=== PATIENT | female | born 1970 | race Caucasian/White ===

== ENCOUNTER 2020-02-23 13:50 | Outpatient (REF) | payer OTHER, SELFPAY ==
--- NOTE | 2020-02-23 | MM_ITS ---
EXAMINATION: MM SCREENING DIGITAL BREAST TOMOSYNTHESIS, BILATERAL CLINICAL INFORMATION: Screening. Asymptomatic. The lifetime risk of breast cancer based on the Tyrer-Cuzick Model is 8.5%. COMPARISON: Mammography: February 01, 2019 and studies dating back to July 31, 2013 TECHNIQUE: Digital breast tomosynthesis is performed in both the craniocaudal and mediolateral oblique views along with computer-aided detection (CAD). Synthesized 2D images are generated from the tomosynthesis. FINDINGS: There are scattered areas of fibroglandular density (ACR BI-RADS breast composition Category b). There are no significant masses, abnormal calcifications, or other abnormalities. MM/MM tomosynthesis screening BI IMPRESSION: There are no significant changes from prior study. ASSESSMENT: BI-RADS 1: Negative RECOMMENDATION: Routine annual mammography screening. This patient's information was entered into a reminder system with a target due date for their next mammogram.
== END 2020-02-23 13:51 | disposition home or self-care (01) ==
LOC: HO.MAMMO 13:50
PROVIDERS: PCP Physician Assistant; Visit Provider Physician Assistant
DX: Z12.31 Encounter for screening mammogram for malignant neoplasm of breast (principal)
CPT/HCPCS: 77063; 77067

== ENCOUNTER → 2020-03-06 15:48 | Outpatient (BNVA) | payer OTHER, SELFPAY | PROVIDERS: PCP Physician Assistant; Referring Provider Physician Assistant; Visit Provider Nurse Practitioner Family | DX: Z76.89 Persons encountering health services in other specified circumstances (principal) ==

== ENCOUNTER 2020-03-27 12:26 | Outpatient (REF) | payer OTHER, SELFPAY ==
[2020-03-27 13:31] LABS: MANUAL DIFF FLAG NO
[2020-03-27 13:35] LABS: Basophils Absolute Auto 0.1 X10*3/uL (0.0-0.2); Basophils Percent Auto 1.1 % (0-2); Eosinophils Absolute Auto 0.7 X10*3/uL (0.0-0.4); Eosinophils Percent Auto 9.9 % (0-4); Hematocrit 42.6 % (37-47); Hemoglobin 13.8 g/dl (12.0-16.0); Imm Gran Abs Auto 0.01 X10*3/uL (0.00-0.03); Imm Gran Pct Auto 0.1 % (0.0-0.4); Lymphocytes Absolute Auto 3.3 X10*3/uL (1.2-4.9); Lymphocytes Percent Auto 43.3 % (20-40); Mean Corpuscular HGB Conc 32.4 g/dl (31.0-35.0); Mean Corpuscular Hemoglobin 27.5 pg (27.0-33.0); Mean Corpuscular Volume 84.9 fL (80-98); Mean Platelet Volume 10.9 fL (9.4-12.3); Monocytes Absolute Auto 0.7 X10*3/uL (0.1-1.2); Monocytes Percent Auto 9.2 % (2-11); Neutrophils Absolute Auto 2.7 X10*3/uL (2.0-8.3); Neutrophils Percent Auto 36.4 % (45-73); Platelet Count 256 X10*3/uL (160-400); Red Blood Count 5.02 X10*6/uL (4.20-5.50); Red Cell Distribution Width 13.8 % (11.0-16.0); White Blood Count 7.5 X10*3/uL (4.8-10.8)
[2020-03-27 14:00] LABS: Alanine Aminotransferase 14 U/L (0-31); Albumin Level 4.2 g/dL (3.5-5.0); Alkaline Phosphatase 58 U/L (39-117); Anion Gap 14 (12-20); Aspartate Amino Transferase 17 U/L (5-31); Bilirubin Total 0.7 mg/dL (0.0-1.0); Blood Urea Nitrogen 11 mg/dL (9-16); Calcium 9.1 mg/dL (8.4-10.2); Carbon Dioxide 24 mmol/L (22-29); Chloride 106 mmol/L (96-108); Cholesterol 186 mg/dL; Estimated Glomerular Filt Rate > 60; Glucose Fasting 103 mg/dL (60-99); HDL Cholesterol 52 mg/dL; LDL Cholesterol Calculated 117 mg/dl; Sodium 139 mmol/L (135-145); Triglycerides 86 mg/dL
[2020-03-27 14:24] LABS: TSH reflex Free T4 1.24 mIU/mL (0.32-4.0)
== END 2020-03-27 12:27 | disposition home or self-care (01) ==
LOC: HO.LAB 12:26
PROVIDERS: Nurse Practitioner Family; Visit Provider Physician Assistant
DX: I10 Essential (primary) hypertension (principal); K21.9 Gastro-esophageal reflux disease without esophagitis
CPT/HCPCS: 36415; 80053; 80061; 84443; 85025; 87338

== ENCOUNTER → 2020-04-04 14:54 | Outpatient (BNVA) | payer OTHER, SELFPAY | PROVIDERS: PCP Physician Assistant; Visit Provider Internal Medicine Cardiovascular Disease | DX: Z01.818 Encounter for other preprocedural examination (principal); R07.9 Chest pain, unspecified; Z91.018 Allergy to other foods; Z91.010 Allergy to peanuts; Z91.013 Allergy to seafood; Z80.0 Family history of malignant neoplasm of digestive organs; Z79.899 Other long term (current) drug therapy | CPT/HCPCS: 93005; 99202 ==

== ENCOUNTER → 2020-05-10 08:16 | Outpatient (REF) | payer OTHER, SELFPAY ==
--- NOTE | ~2020-05-10 | NM_ITS ---
EXERCISE MYOCARDIAL PERFUSION STUDY INDICATION: Preoperative cardiac evaluation, abnormal EKG TECHNIQUE: The patient was brought in for an exercise perfusion study on 05/10/2020. Patient performed exercise as per Azael protocol and was injected 30 mCi of sestamibi once target heart rate was achieved. Images were obtained using the SPECT gamma camera interlaced with the gating device. Images were obtained in supine position. Resting perfusion study was performed on 05/13/2020. Patient was administered 30 mCi of sestamibi intravenously at rest. Images were then obtained in supine position. Total DLP 69mGy-cm. Images were processed with the software and compared side to side in short axis, horizontal long axis and vertical long axis views. FINDINGS: Raw images were reviewed. The stress perfusion study showed no significant perfusion abnormality. Both uncorrected as well as CT attenuation corrected images were reviewed. The gated study shows normal LV systolic function with calculated LVEF of > 75%. LV cavity is normal in size. The gated study shows normal wall thickening and contraction of segments. Resting study shows no significant perfusion abnormality. Gating at rest reveals normal wall motion with ejection fraction at 73%. The findings are consistent with no reversible or fixed perfusion abnormality. NM/NM cardiolite stress test IMPRESSION: 1. Myocardial perfusion imaging study shows normal myocardial perfusion. No evidence of any ischemia or infarction. 2. Gated LVEF is normal and > 70%. 3. Transient ischemic dilatation not present. EKG component of the test reported separately.
--- NOTE | 2020-05-10 08:20 | CA_ITS ---
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 - There is mildly increased left ventricular wall thickness. - Normal right ventricular cavity size and systolic function. - There is no evidence of pericardial effusion. Findings Left Ventricle Normal left ventricular size and systolic function. There is mildly increased left ventricular wall thickness. The visually estimated ejection fraction is between 55-60%. There is no evidence of regional wall motion abnormalities. Diastolic function is normal for age. Right Ventricle Normal right ventricular cavity size and systolic function. Atria Both atria are normal in size. There is no evidence of interatrial shunt by color Doppler. Aortic Valve Normal aortic valve structure and function. There is no aortic valve stenosis. There is no aortic valve regurgitation. Mitral Valve Normal mitral valve structure and function. There is no mitral valve regurgitation. There is no mitral valve stenosis. Pulmonic Valve Normal pulmonic valve structure and function. There is trace pulmonic valve regurgitation. Tricuspid Valve Normal tricuspid valve structure and function. There is trace tricuspid valve regurgitation. Normal right atrial pressure. There is no evidence of pulmonary hypertension. Great Vessels All visible segments of the aorta are normal in size. The visualized portions of the pulmonary artery and branches are normal. Venous The inferior vena cava is normal in size and collapses greater than 50% with inspiration. Pericardium/Pleural There is no evidence of pericardial effusion. Prior Study Comparison No prior study available for comparison. Measurements M-Mode Liner Measurements Normals - Women/Men AOV Cusps: 2.20 1.5-2.6 cm/m2 2D Linear Measurements IVSd: 1.03 0.6-0.9/0.6-1.0 cm LVIDd: 3.54 3.9-5.3/4.2-5.9 cm LVIDd Index: 2.05 2.4-3.2/2.2-3.1 cm/m2 LVIDs: 2.01 2.0-3.6 cm LVPWd: 1.62 0.7-1.1 cm Ao Root: 2.70 2.1-3.5 cm LA Diam: 3.20 2.7-3.8/3.0-4.0 cm LAIDs Index: 1.85 1.5-2.3 cm/m2 LV Mass: 200.53 67-162/88-224 g LV Mass Index: 115.91 43-95/49-115 g/m2 LVOT Diam: 2.10 3.0+(-)1.3 cm 2D Systolic Function EF 4C: 61.20 >55% EF 2C: 63.50 >55% EF BiP: 62.50 >55% Mitral Valve MV Pk E: 0.84 MV PK A: 0.65 MV Decel Time: 173.00 E/A: 1.30 E'Lateral: 11.70 E'Medial: 6.96 E/E' Med: 12.10 E/E' Lat: 7.20 PHT: 51.00 MVA PHT: 4.31 Decel Payette: 4.86 Aortic Valve AoV Pk Edison: 1.19 AoV Pk Grad: 6.00 LVOT LVOT Pk Edison: 0.73 LVOT Mn Edison: 0.53 LVOT VTI: 0.18 LVOT Pk Grad: 2.00 LVOT Mn Grad: 1.00 LVOT Diam: 2.10 LVOT Area: 3.46 Diastolic Function MV Pk E: 0.84 MV Pk A: 0.65 E/A: 1.30 E'Medial: 6.96 E/E' Med: 12.10 E' Laterial: 11.70 E/E' Lat: 7.20 Tricuspid Valve TR Pk Edison: 1.86 TR Pk Grad: 14.00 RA Press: 3.00 RVSP: 17.00 Great Vessels Aorta Ao Root-2D: 2.70 2.0-3.7 cm Ao Asc: 2.50 2.1-3.4 cm Pulmonary Valve PV Pk Edison: 1.03 Peak PV Grad: 4.00 Updated in Other Vendor System with Status of Final Jcarlos Parekh MD electronically signed on 05/12/2020 1:59:07 PM with status of Final
--- NOTE | 2020-05-10 09:30 | CA_ITS ---
Acquisition Time: 2020-05-10 10:05:07 Total Exercise Time: 00:05:07 Test Indications: Pre-Op Evaluation Medications: ALBUTEROL CLONAZAPAM CLONIDINE DULOXETINE GABAPENTIN Protocol: CEDRICK Max HR: 153 BPM 90% of Pred: 170 BPM Max BP: 128/072 mmHG Max Work Load: 4.9 METS Exercise stress nuclear using Cedrick protocol total of 5 min 7 sec. METS 4.90 and TAPHR up to 90%. Second stage held as pt had a hard time walking on the treadmill. Speed increased manually to 1.9 mph at 3 min. EKG with isolated PVC, no ischemic changes seen during exercise or in recovery. Nuclear images to follow. Normotensive response to exercise. Test reviewed with Dr. Parekh. Referred By: Jcarlos Parekh Overread By: Eulalio Medina
== END ==
LOC: HO.CARD 08:16
PROVIDERS: Visit Provider Internal Medicine Cardiovascular Disease
DX: R07.9 Chest pain, unspecified (principal)
CPT/HCPCS: 78452; 93016; 93017; 93018; 93306; A9500

== ENCOUNTER → 2020-05-13 13:24 | Outpatient (BNVA) | payer OTHER, SELFPAY | PROVIDERS: PCP Physician Assistant; Visit Provider Internal Medicine Cardiovascular Disease | DX: Z13.89 Encounter for screening for other disorder (principal) | CPT/HCPCS: 99212 ==

== ENCOUNTER 2020-05-17 06:56 | Day surgery (SDC) | payer OTHER, SELFPAY ==
[2020-05-14 10:38] VITALS: BMI 32.8
[2020-05-14 12:29] VITALS: BMI 34.3
--- NOTE | 2020-05-15 14:36 | HO.ANESPROP2 ---
Documented by User: Shaila Haysney 05/16/20 11:48 HPI - Anesthesia Eval Consult details Narrative: 50yo F for Upper Endoscopy and Colonoscopy Cardiac cleared at low to intermed risk (Echo / Stress ok. Pending CTA not required preop per Dr Parekh.) [facility] Active Problems Active Problems: All Active Problems (Updated 05/14/20 @ 20:15 by Jcarlos Parekh MD) HTN (hypertension) (Acute) Asthma (Acute) Obese (Acute) PVD (peripheral vascular disease) (Acute) Constipation (Acute) Colon cancer screening (Acute) Chest pain (Acute) Equivocal stress test (Acute) Past Medical History Medical History Asthma HTN (hypertension) Hx of chest pain PVD (peripheral vascular disease) Family History Family History Father Alzheimers disease Mother Asthma attack Brother Hypertension Hypercholesterolemia Depression Sister Heart disease Diabetes Daughter COPD (chronic obstructive pulmonary disease) Sister Uterine cancer Brother Throat cancer Surgical History Surgical History H/O splenectomy History of bladder surgery History of cholecystectomy History of hysterectomy History of tubal ligation Hx of endoscopy Hx of varicose vein ligation Social History Social History Are you a primary critical care rn to a significant other at home: No Do you presently have visiting nurse or other home services: No Alcohol intake: never Smoking Status: Former smoker Tobacco Type: Cigarette Smoked in Last 30 Days: No Smoking Quit Date: 2015 Use of substances other than those prescribed or required for medical reasons: No Have you been hit, kicked, punched, or otherwise hurt by someone within the past year? If so, by whom?: No Advance Directives Information Provided: No Recently lost weight without trying: No Meds Allergies Allergy/AdvReac Type Severity Reaction Status Date / Time nut - unspecified Allergy Severe Anaphylaxis Verified 05/14/20 12:35 peanut [Peanut] Allergy Severe ANAPHYLAXIS Verified 05/13/20 15:05 shellfish derived Allergy Severe Anaphylaxis Verified 05/13/20 15:05 Home Medications Medication Instructions Recorded Confirmed Last Taken Type clonazepam 2 mg tablet 2 mg PO BID PRN 01/25/20 05/14/20 Unknown History diphenhydramine HCl 25 mg tablet 25 mg PO BEDTIME PRN 01/25/20 05/14/20 Unknown History duloxetine 60 mg capsule,delayed 60 mg PO DAILY 01/25/20 05/14/20 Unknown History release eszopiclone 3 mg tablet 3 mg PO BEDTIME 01/25/20 05/14/20 Unknown History gabapentin 600 mg tablet 600 mg PO TID 01/25/20 05/14/20 Unknown History lorazepam 2 mg tablet 2 mg PO BEDTIME PRN 01/25/20 05/14/20 Unknown History montelukast 10 mg tablet 10 mg PO DAILY 01/25/20 05/14/20 Unknown History clonidine HCl 0.1 mg tablet 0.1 mg PO BID tab 05/13/20 05/14/20 Unknown History Exam Exam Date and Time: May 15, 2020 1436 Height,Weight and Vital Signs: Height 5 ft Weight 79.832 kg Pertinent Lab Results Pertinent Lab Results: Laboratory Tests 03/27/20 03/27/20 12:50 12:50 WBC 7.5 Hgb 13.8 Hct 42.6 Plt Count 256 Sodium 139 Potassium 5.0 Chloride 106 Carbon Dioxide 24 BUN 11 Creatinine 0.82 Narrative Narrative: EKG 03/2020 NSR @ 64 Septal infarct, age undetermined Echo 04/2020 Conclusions: - Normal left ventricular size and systolic function. - There is mildly increased left ventricular wall thickness. - Normal right ventricular cavity size and systolic function. - There is no evidence of pericardial effusion. NM cardiolite stress test 04/2020 IMPRESSION: 1. Myocardial perfusion imaging study shows normal myocardial perfusion. No evidence of any ischemia or infarction. 2. Gated LVEF is normal and > 70%. 3. Transient ischemic dilatation not present. EKG component of the test reported separately. - equivocal test per cardiology Assessment and Plan Assessment Anesthesia Assessment: Chart Reviewed Documented by User: Omar Chen MD 05/17/20 07:40 PMFSH Past Medical History Medical History Asthma HTN (hypertension) Hx of chest pain PVD (peripheral vascular disease) Family History Family History Father Alzheimers disease Mother Asthma attack Brother Hypertension Hypercholesterolemia Depression Sister Heart disease Diabetes Daughter COPD (chronic obstructive pulmonary disease) Sister Uterine cancer Brother Throat cancer Surgical History Surgical History H/O splenectomy History of bladder surgery History of cholecystectomy History of hysterectomy History of tubal ligation Hx of endoscopy Hx of varicose vein ligation Social History Social History Are you a primary critical care rn to a significant other at home: No Do you presently have visiting nurse or other home services: No Alcohol intake: never Smoking Status: Former smoker Tobacco Type: Cigarette Smoked in Last 30 Days: No Smoking Quit Date: 2015 Use of substances other than those prescribed or required for medical reasons: No Have you been hit, kicked, punched, or otherwise hurt by someone within the past year? If so, by whom?: No Advance Directives Information Provided: No Recently lost weight without trying: No Meds Allergies Allergy/AdvReac Type Severity Reaction Status Date / Time nut - unspecified Allergy Severe Anaphylaxis Verified 05/14/20 12:35 peanut [Peanut] Allergy Severe ANAPHYLAXIS Verified 05/13/20 15:05 shellfish derived Allergy Severe Anaphylaxis Verified 05/13/20 15:05 Home Medications Medication Instructions Recorded Confirmed Last Taken Type clonazepam 2 mg tablet 2 mg PO BID PRN 01/25/20 05/14/20 Unknown History diphenhydramine HCl 25 mg tablet 25 mg PO BEDTIME PRN 01/25/20 05/14/20 Unknown History duloxetine 60 mg capsule,delayed 60 mg PO DAILY 01/25/20 05/14/20 Unknown History release eszopiclone 3 mg tablet 3 mg PO BEDTIME 01/25/20 05/14/20 Unknown History gabapentin 600 mg tablet 600 mg PO TID 01/25/20 05/14/20 Unknown History lorazepam 2 mg tablet 2 mg PO BEDTIME PRN 01/25/20 05/14/20 Unknown History montelukast 10 mg tablet 10 mg PO DAILY 01/25/20 05/14/20 Unknown History clonidine HCl 0.1 mg tablet 0.1 mg PO BID tab 05/13/20 05/14/20 Unknown History Assessment and Plan Assessment Anesthesia Assessment: Anesthesia Plan Discussed and Chart Reviewed Final Anesthetic Review NPO: Yes ASA Class: II Final Preanesthetic Review: No Changes in Pt Med Stat, Meds/Allgs Chart Reviewed, Consent Obtained/Reviewed and Anes Risks/Benef Reviewed Patient Risk: Low Procedure Risk: Low Anesthetic Plan Anesthetic Plan: MAC: Disposition: Standard PACU
[2020-05-17 07:20] VITALS: BP 120/62; PULSE 56; RESP 16; TEMP 35.7; O2SAT 100
[2020-05-17] MEDS: Lactated Ringers 1,000 ML 100 ML IVCONT (07:25)
--- NOTE | 2020-05-17 07:30 | W.PM.OPN ---
Operative Note Operative Note Date of Service: 05/17/20 Narrative: Pre-op diagnosis: Colon cancer screening, GERD, upper abdominal pain Post-op diagnosis: other (GERD, gastritis, colon polyp, diverticulosis) Procedure: FLEXIBLE TRANSORAL UPPER GASTROINTESTINAL ENDOSCOPY WITH BIOPSIES AND COLONOSCOPY TILL CECUM WITH BIOPSIES UPPER ENDOSCOPY Consent: Indications for the procedure and potential complications of bleeding, perforation, reaction to medications and missed diagnosis were discussed with the patient and informed consent was obtained. Instrument: Olympus GIF H 190 mid size upper endoscope Monitoring: Vital signs and clinical assessment, continuous EKG monitoring, Pulse oximetry, Carbon Dioxide monitoring and blood pressure monitoring were done throughout the procedure. Procedure: The patient was placed in the left lateral decubitis position and pre-procedure medications were administered and a bite block was placed. The endoscope was inserted into the mouth and advanced under direct vision to the third part of duodenum. A careful inspection was made as the upper endoscope was withdrawn including a retroflexed examination of the proximal stomach; Findings and interventions are described below. Findings: Larynx: Normal Esophagus: GE junction at 35 cms. No esophagitis or Iqbal's. Stomach: Moderate diffuse gastric erythema. Biopsies were obtained from the body and antrum. Decreased fundal folds and Grade 2 flap valve on retroflexed examination of the cardia. Duodenum: Normal bulb and descending duodenum. Biopsies were obtained from 3rd part of the duodenum to check for celiac sprue. Intervention: Biopsies as noted above COLONOSCOPY PROCEDURE NOTE Consent: Indications for the procedure and potential complications of bleeding, perforation, reaction to medications and missed diagnosis were discussed with the patient and informed consent was obtained. Instrument: Olympus PCF H 190 L variable stiffness pediatric colonoscope Monitoring: Vital signs and clinical assessment, intermittent blood pressure monitoring, continuous EKG monitoring, Pulse oximetry and Carbon Dioxide monitoring were done throughout the procedure. Colon withdrawl time was 17 minutes. Procedure: The patient was placed in the left lateral decubitis position and pre-procedure medications were administered. After a digital rectal examination of the ano-rectum, the video colonoscope was inserted into the rectum and advanced through the colon to the cecum. The colonoscope was slowly withdrawn in a retrograde panoramic fashion and the colon mucosa was carefully examined including a retroflexed view of the rectum. Findings and interventions are described below. Procedure Difficulty: : Without difficulty Findings: Terminal Ileum: Not evaluated Cecum: Normal Ascending Colon: Normal Transverse Colon: Normal Descending Colon: Normal Sigmoid Colon: Moderate diverticulosis Rectum: A 2 mm diminutive appearing polyp removed with cold biopsy. Ano-rectum: Normal Colon preparation: Good after some irrigation Impression and Post Procedure Diagnosis: Endoscopy Findings: STOMACH: Diffuse gastritis and decrease fundal folds. DUODENUM: Normal - biopsied to check for celiac sprue we will Colonoscopy Findings: 1 tiny diminutive appearing polyp was removed. Moderate diverticulosis seen in the sigmoid colon Plan: Await pathology results Patient has an appointment on 05/23/20 in the GI [facility] with Carol Hough FNP-BC. Repeat Colonoscopy interval based on path results - in 5 years if polyps are adenomatous and 10 years if polyps are hyperplastic. Above findings were reviewed with the patient and GERD, Gastritis, colon polyps and diverticulosis handouts were given in the discharge area. Surgeon: Ran Le MD Anesthesia: MAC (Dr Chen) Estimated blood loss (mL): 0 Pathology: other (A. Small bowel, B. Gastric antrum, C. Gastric body, D. Rectal polyp) Condition: stable Disposition: PACU
--- NOTE | 2020-05-17 07:31 | MHC.SHP ---
Pre-Procedural Eval Section A The patient is an INPATIENT: No The History & Physical has been completed within 30 days and I have reviewed it.: No Section B Chief Complaint: screening Details of Present Illness: This will be her 1st colonoscopy screening. Patient denies any family history of colon CA. Patient reports that she has long history of constipation, that has been managed by her PCP currently she is taking senna in the evening as well as docusate sodium in the morning. She verbalizes that she tries to use food high in fiber however she still is unable to go for days. Denies any diarrhea, melena. She reports occasional bloating after meals as well as occasional heartburn that she treats with Tums without a problem. She reports that she might have distention and abdominal discomfort after she eats if she has not gone to the bathroom for some time. Relevant Family History (Specify if Yes): No Relevant Social History: None Present Medications: see Short Stay Collaborative assessment Medical History: Significant History (asthma) History of Previous Operations: Relevant previous surgery/procedure and date(s) (H/O splenectomy History of bladder surgery History of cholecystectomy History of hysterectomy History of tubal ligation History of varicose veins Hx of endoscopy) Allergies: Allergies Allergy/AdvReac Type Severity Reaction Status Date / Time nut - unspecified Allergy Severe Anaphylaxis Verified 05/14/20 12:35 peanut [Peanut] Allergy Severe ANAPHYLAXIS Verified 05/13/20 15:05 shellfish derived Allergy Severe Anaphylaxis Verified 05/13/20 15:05 Review of Systems Sugical H&P ROS: Negative: Constitution, Cardiovascular and Respiratory and Yes, Specify: Gastrointestinal (GERD, abd pain) Exam Surgical H&P Exam: Normal: Heart, Normal: Lungs, Normal: Extremities and Normal: Abdomen Plan Diagnosis/Plan: Change (add EGD for evaluation of GERD) I have reviewed the history and physical and performed a pertinent physical examination on my patient. No changes have occurred unless specified.
[2020-05-17 08:33] VITALS: BP 107/51; PULSE 70; RESP 16; TEMP 36.4; O2SAT 100
[2020-05-17 08:48] VITALS: BP 111/42; PULSE 70; RESP 20; TEMP 36.3; O2SAT 98
== END 2020-05-17 09:29 | disposition home or self-care (01) ==
PROVIDERS: PCP Physician Assistant; Visit Provider Internal Medicine Gastroenterology
PROC: (CPT 45380; principal; 2020-05-17 08:20)
DX: Z12.11 Encounter for screening for malignant neoplasm of colon (principal); K62.1 Rectal polyp; K57.30 Diverticulosis of large intestine without perforation or abscess without bleeding; K59.00 Constipation, unspecified; K21.9 Gastro-esophageal reflux disease without esophagitis; K29.50 Unspecified chronic gastritis without bleeding; K44.9 Diaphragmatic hernia without obstruction or gangrene; J45.909 Unspecified asthma, uncomplicated; I83.91 Asymptomatic varicose veins of right lower extremity; Z79.51 Long term (current) use of inhaled steroids; Z79.899 Other long term (current) drug therapy; Z87.891 Personal history of nicotine dependence; Z90.49 Acquired absence of other specified parts of digestive tract
CPT/HCPCS: 45380; 43239; 88305; 88342; J3010

== ENCOUNTER → 2020-05-23 15:25 | Outpatient (BNVA) | payer OTHER, SELFPAY | PROVIDERS: PCP Physician Assistant; Visit Provider Nurse Practitioner Family ==

== ENCOUNTER → 2020-06-20 15:01 | Outpatient (BNVA) | payer OTHER, SELFPAY | PROVIDERS: PCP Physician Assistant; Visit Provider Nurse Practitioner Family ==

== ENCOUNTER 2020-07-02 11:29 | Outpatient (REF) | payer OTHER, SELFPAY ==
[2020-07-02 12:27] LABS: Hematocrit 40.6 % (37-47); Hemoglobin 12.8 g/dl (12.0-16.0); Mean Corpuscular HGB Conc 31.5 g/dl (31.0-35.0); Mean Corpuscular Hemoglobin 27.1 pg (27.0-33.0); Mean Platelet Volume 10.2 fL (9.4-12.3); Platelet Count 297 X10*3/uL (160-400); Red Blood Count 4.72 X10*6/uL (4.20-5.50); Red Cell Distribution Width 14.6 % (11.0-16.0); White Blood Count 7.4 X10*3/uL (4.8-10.8)
[2020-07-02 12:44] LABS: Alanine Aminotransferase 20 U/L (0-31); Alkaline Phosphatase 57 U/L (39-117); Anion Gap 11 (12-20); Aspartate Amino Transferase 18 U/L (5-31); Bilirubin Total 0.5 mg/dL (0.0-1.0); Blood Urea Nitrogen 25 mg/dL (9-16); Carbon Dioxide 23 mmol/L (22-29); Chloride 109 mmol/L (96-108); Cholesterol 200 mg/dL; Estimated Glomerular Filt Rate > 60; Glucose Fasting 99 mg/dL (60-99); HDL Cholesterol 58 mg/dL; LDL Cholesterol Calculated 128 mg/dl; Potassium 4.4 mmol/L (3.3-5.1); Sodium 139 mmol/L (135-145); Total Protein 7.4 g/dL (6.5-8.0); Triglycerides 73 mg/dL
== END 2020-07-02 11:30 | disposition home or self-care (01) ==
LOC: HO.LAB 11:29
PROVIDERS: PCP Physician Assistant; Visit Provider Internal Medicine Cardiovascular Disease
DX: I10 Essential (primary) hypertension (principal)
CPT/HCPCS: 36415; 80053; 80061; 85027

== ENCOUNTER → 2020-07-18 13:04 | Outpatient (BNVA) | payer OTHER, SELFPAY | PROVIDERS: PCP Physician Assistant; Visit Provider Internal Medicine Cardiovascular Disease | DX: I10 Essential (primary) hypertension (principal); R07.9 Chest pain, unspecified | CPT/HCPCS: 99212 ==

== ENCOUNTER → 2020-07-29 14:09 | Outpatient (BNVA) | payer OTHER, SELFPAY | PROVIDERS: PCP Physician Assistant; Visit Provider Nurse Practitioner Family ==

== ENCOUNTER 2020-09-13 09:00 | Outpatient (REF) | payer OTHER, SELFPAY ==
[2020-09-13 10:23] LABS: Hematocrit 43.2 % (37-47); Hemoglobin 13.8 g/dl (12.0-16.0); Mean Corpuscular HGB Conc 31.9 g/dl (31.0-35.0); Mean Corpuscular Hemoglobin 26.8 pg (27.0-33.0); Mean Corpuscular Volume 83.9 fL (80-98); Mean Platelet Volume 10.5 fL (9.4-12.3); Platelet Count 307 X10*3/uL (160-400); Red Blood Count 5.15 X10*6/uL (4.20-5.50); Red Cell Distribution Width 13.7 % (11.0-16.0); White Blood Count 9.3 X10*3/uL (4.8-10.8)
== END 2020-09-13 09:01 | disposition home or self-care (01) ==
LOC: HO.LAB 09:00
PROVIDERS: PCP Physician Assistant; Visit Provider Nurse Practitioner Family
DX: K92.1 Melena (principal)
CPT/HCPCS: 36415; 85027

== ENCOUNTER → 2020-09-16 13:53 | Outpatient (BNVA) | payer OTHER, SELFPAY | PROVIDERS: PCP Physician Assistant; Visit Provider Nurse Practitioner Family ==

== ENCOUNTER → 2020-10-07 07:52 | Outpatient (REF) | payer OTHER, SELFPAY ==
--- NOTE | ~2020-10-07 | NM_ITS ---
EXAMINATION: RADIONUCLIDE SOLID FOOD GASTRIC EMPTYING 4-HOUR STUDY CLINICAL INFORMATION: Gastritis. Patient states occasional nausea and bloating and fullness. COMPARISON: No previous gastric emptying study is available for comparison. TECHNIQUE: A standard meal consisting of 4 oz of Egg Beaters brand equivalent tagged with 1.0 mCi Tc-99m Sulfur Colloid, 8 oz water and 2 slices of toast with jelly was administered orally to the patient. Images were obtained using a dual head gamma camera in the anterior and posterior projections over of the stomach immediately post ingestion and at hourly intervals up to 4 hours post ingestion. The anterior and posterior counts at each time interval were averaged using the geometric mean and expressed as percentage of the immediate post ingestion counts. FINDINGS: There is good visualization of activity in the stomach immediately post ingestion. As the study progresses, there is good clearance of activity from the stomach and visualization of progressively increasing small bowel activity. By the end of the study, there is almost no retention noted in the stomach. Retention in the stomach at each time interval was: 1 hour 61% (normal 37%-90%) 2 hours 24% (normal 30%-60%) 3 hours 9% 4 hours 4% (normal 0%-10%) NM/NM gastric emptying study IMPRESSION: Normal 4-hour solid food gastric emptying study.
== END ==
LOC: HO.NUCMED 07:52
PROVIDERS: Visit Provider Nurse Practitioner Family
DX: R10.9 Unspecified abdominal pain (principal); K29.70 Gastritis, unspecified, without bleeding
CPT/HCPCS: 78264; A9541

== ENCOUNTER → 2020-10-14 10:51 | Outpatient (BNVA) | payer OTHER, SELFPAY | PROVIDERS: PCP Physician Assistant; Referring Provider Physician Assistant; Visit Provider Nurse Practitioner Family | DX: K21.9 Gastro-esophageal reflux disease without esophagitis (principal); K59.00 Constipation, unspecified; R14.0 Abdominal distension (gaseous) | CPT/HCPCS: 99212 ==

== ENCOUNTER → 2020-11-26 11:56 | Outpatient (BNVA) | payer OTHER, SELFPAY | PROVIDERS: PCP Physician Assistant; Visit Provider Nurse Practitioner Family ==

== ENCOUNTER → 2020-12-04 10:50 | Outpatient (BNVA) | payer OTHER, SELFPAY | PROVIDERS: PCP Physician Assistant; Visit Provider Nurse Practitioner Family ==

== ENCOUNTER → 2021-01-13 11:42 | Outpatient (BNVA) | payer OTHER, SELFPAY | PROVIDERS: PCP Physician Assistant; Visit Provider Nurse Practitioner Family | DX: K59.00 Constipation, unspecified (principal); K21.9 Gastro-esophageal reflux disease without esophagitis; K64.9 Unspecified hemorrhoids | CPT/HCPCS: 99212 ==

== ENCOUNTER 2021-02-24 14:54 | Outpatient (REF) | payer OTHER, SELFPAY ==
--- NOTE | ~2021-02-24 | MM_ITS ---
EXAMINATION: MM SCREENING DIGITAL BREAST TOMOSYNTHESIS, BILATERAL CLINICAL INFORMATION: Screening. Asymptomatic. The lifetime risk of breast cancer based on the Tyrer-Cuzick Model is 9%. COMPARISON: Mammography: 02/23/2020, 02/01/2019, 01/19/2018, 10/21/2016 TECHNIQUE: Digital breast tomosynthesis is performed in both the craniocaudal and mediolateral oblique views along with computer-aided detection (CAD). Synthesized 2D images are generated from the tomosynthesis. FINDINGS: There are scattered areas of fibroglandular density (ACR BI-RADS breast composition Category b). There are no significant masses, abnormal calcifications, or other abnormalities. Breast tissue composition borders on predominantly fatty. Background stromal and fibroglandular densities are stable. No developing density or interval mass or architectural abnormality. No abnormal calcifications. The axilla are unremarkable. Skin contours are smooth. MM/MM tomosynthesis screening BI IMPRESSION: No mammographic evidence of malignancy. ASSESSMENT: BI-RADS 1: Negative RECOMMENDATION: Routine annual mammography screening. This patient's information was entered into a reminder system with a target due date for their next mammogram.
== END 2021-02-24 14:55 | disposition home or self-care (01) ==
LOC: HO.MAMMO 14:54
PROVIDERS: PCP Physician Assistant; Visit Provider Physician Assistant
DX: Z12.31 Encounter for screening mammogram for malignant neoplasm of breast (principal)
CPT/HCPCS: 77063; 77067

== ENCOUNTER → 2021-03-12 13:25 | Outpatient (BNVA) | payer OTHER, SELFPAY | PROVIDERS: PCP Physician Assistant; Referring Provider Physician Assistant; Visit Provider Nurse Practitioner Family | DX: K58.1 Irritable bowel syndrome with constipation (principal); K21.9 Gastro-esophageal reflux disease without esophagitis; K64.9 Unspecified hemorrhoids | CPT/HCPCS: 99212 ==

== ENCOUNTER 2021-04-18 08:31 | Outpatient (REF) | payer OTHER, SELFPAY ==
[2021-04-18 08:59] LABS: Hematocrit 40.4 % (37.0-47.0); Hemoglobin 12.9 g/dl (12.0-16.0); Mean Corpuscular HGB Conc 31.9 g/dl (31.0-35.0); Mean Corpuscular Hemoglobin 27.2 pg (27.0-33.0); Mean Corpuscular Volume 85.1 fL (80.0-98.0); Mean Platelet Volume 9.6 fL (9.4-12.3); Platelet Count 264 X10*3/uL (160-400); Red Blood Count 4.75 X10*6/uL (4.20-5.50); Red Cell Distribution Width 13.8 % (11.0-16.0); White Blood Count 7.7 X10*3/uL (4.8-10.8)
[2021-04-18 09:10] LABS: Estimated Average Glucose 114 mg/dL; Hemoglobin A1c % 5.6 %
[2021-04-18 10:18] LABS: TSH reflex Free T4 3.08 uIU/mL (0.32-4.0)
[2021-04-18 10:19] LABS: Alanine Aminotransferase 13 U/L (0-31); Albumin Level 3.8 g/dL (3.5-5.0); Alkaline Phosphatase 51 U/L (39-117); Anion Gap 9 (12-20); Aspartate Amino Transferase 18 U/L (5-31); Bilirubin Total 0.4 mg/dL (0.0-1.0); Blood Urea Nitrogen 15 mg/dL (9-16); Calcium 9.3 mg/dL (8.4-10.2); Carbon Dioxide 26 mmol/L (22-29); Chloride 109 mmol/L (96-108); Cholesterol 177 mg/dL; Estimated Glomerular Filt Rate > 60; Glucose Fasting 110 mg/dL (60-99); HDL Cholesterol 47 mg/dL; LDL Cholesterol Calculated 116 mg/dl; Potassium 4.4 mmol/L (3.3-5.1); Sodium 140 mmol/L (135-145); Total Protein 7.2 g/dL (6.5-8.0); Triglycerides 71 mg/dL
== END 2021-04-18 08:32 | disposition home or self-care (01) ==
LOC: HO.LAB 08:31
PROVIDERS: PCP Physician Assistant; Visit Provider Physician Assistant
DX: E66.09 Other obesity due to excess calories (principal); Z68.32 Body mass index [BMI] 32.0-32.9, adult; I10 Essential (primary) hypertension
CPT/HCPCS: 36415; 80053; 80061; 83036; 84443; 85027

== ENCOUNTER 2021-04-25 12:20 | Outpatient (REF) | payer OTHER, SELFPAY ==
[2021-04-26 08:47] LABS: Follicle Stimulating Hormone 9.2 mIU/mL
[2021-04-29 23:01] LABS: Estrone 46 pg/mL
[2021-05-02 20:21] LABS: Estrogen 96.5 pg/mL
== END 2021-04-25 12:21 | disposition home or self-care (01) ==
LOC: HO.LAB 12:20
PROVIDERS: PCP Physician Assistant; Visit Provider Physician Assistant
DX: N95.1 Menopausal and female climacteric states (principal)
CPT/HCPCS: 36415; 82672; 82679; 83001

== ENCOUNTER → 2021-06-09 13:43 | Outpatient (BNVA) | payer OTHER, SELFPAY | PROVIDERS: PCP Physician Assistant; Referring Provider Physician Assistant; Visit Provider Nurse Practitioner Family | DX: K57.90 Diverticulosis of intestine, part unspecified, without perforation or abscess without bleeding (principal); K21.9 Gastro-esophageal reflux disease without esophagitis; K59.00 Constipation, unspecified | CPT/HCPCS: 99212 ==

== ENCOUNTER → 2021-08-07 12:54 | Outpatient (BNVA) | payer OTHER, SELFPAY | PROVIDERS: PCP Physician Assistant; Referring Provider Physician Assistant; Visit Provider Nurse Practitioner Family | DX: I10 Essential (primary) hypertension (principal); R07.9 Chest pain, unspecified; E66.09 Other obesity due to excess calories; Z68.33 Body mass index [BMI] 33.0-33.9, adult | CPT/HCPCS: 93005; 99212 ==

== ENCOUNTER 2021-10-31 13:19 | Outpatient (REF) | payer OTHER, SELFPAY ==
[2021-10-31 14:44] LABS: Amylase 70 U/L (28-100); Lipase 45 U/L (8-78)
[2021-10-31 15:19] LABS: Folate 6.7 ng/mL (> or = 4.0); Vitamin B12 385 pg/mL (200-900)
[2021-11-04 17:22] LABS: Vitamin D 25-OH, D2 6 ng/mL; Vitamin D 25-OH, D3 16 ng/mL; Vitamin D 25-OH, Total 22 ng/mL (30-100)
== END 2021-10-31 13:20 | disposition home or self-care (01) ==
LOC: HO.LAB 13:19
PROVIDERS: PCP Physician Assistant; Visit Provider Nurse Practitioner Family
DX: R10.9 Unspecified abdominal pain (principal); K21.9 Gastro-esophageal reflux disease without esophagitis; R19.7 Diarrhea, unspecified; E55.9 Vitamin D deficiency, unspecified
CPT/HCPCS: 36415; 82150; 82306; 82607; 82746; 83690; 99212

== ENCOUNTER 2021-11-03 12:39 | Outpatient (REF) | payer OTHER, SELFPAY ==
[2021-11-10 19:35] LABS: Pancreatic Elastase-1 >500 mcg/g
== END 2021-11-03 12:40 | disposition home or self-care (01) ==
LOC: HO.LNP 12:39
PROVIDERS: Visit Provider Nurse Practitioner Family
DX: R10.9 Unspecified abdominal pain (principal)
CPT/HCPCS: 82656

== ENCOUNTER 2021-11-04 14:31 | Emergency (ER) | payer OTHER, SELFPAY ==
--- NOTE | ~2021-11-04 | XR_ITS ---
EXAMINATION: XR ANKLE, RIGHT CLINICAL INFORMATION: Ankle injury COMPARISON: None TECHNIQUE: AP, lateral, and mortise views of the right ankle. FINDINGS: There is mild bilateral soft tissue swelling. No fractures are seen. The ankle mortise appears stable. No evidence of a joint effusion. XR/XR ankle RT min 3V IMPRESSION: No acute osseous injury.
[2021-11-04 15:16] VITALS: BP 142/82; PULSE 72; RESP 18; TEMP 36.3; O2SAT 100; BMI 31.2
[2021-11-04 17:29] VITALS: BP 146/84; PULSE 68; RESP 18; TEMP 36.8; O2SAT 99
--- NOTE | 2021-11-04 17:41 | ED_ITS ---
HPI - Extremity Injury (Lower) General Chief Complaint: Extremity Injury, Lower Stated Complaint: right ankle sprain? Time Seen by Provider: 11/04/21 17:31 Source: patient Mode of arrival: ambulatory Limitations: no limitations History of Present Illness HPI Narrative: 51-year-old female here with right ankle pain after slip and fall getting out of the shower last night. Related Data Home Medications Medication Instructions Recorded Confirmed clonazepam 2 mg tablet 2 mg PO BID PRN Anxiety 01/25/20 08/19/21 diphenhydramine HCl 25 mg tablet 25 mg PO BEDTIME PRN Insomnia 01/25/20 08/19/21 duloxetine 60 mg capsule,delayed 60 mg PO DAILY 01/25/20 08/19/21 release eszopiclone 3 mg tablet 3 mg PO BEDTIME 01/25/20 08/19/21 gabapentin 600 mg tablet 600 mg PO TID 01/25/20 08/19/21 lorazepam 2 mg tablet 2 mg PO BEDTIME PRN Anxiety 01/25/20 08/19/21 montelukast 10 mg tablet 10 mg PO DAILY 01/25/20 08/19/21 clonidine HCl 0.1 mg tablet 0.1 mg PO BID 05/13/20 08/19/21 Previous Rx's Medication Instructions Recorded docusate sodium 100 mg capsule 100 mg PO DAILY 30 days #30 caps 01/25/20 (Colace) albuterol sulfate 2.5 mg/3 mL 2.5 mg (3 mL) inhalation TID PRN 02/27/20 (0.083 %) solution for nebulization shortness of breath or wheezing 30 days #90 mL fluticasone propionate 110 1 puff PO BID 30 days #12 grams 02/27/20 mcg/actuation HFA aerosol inhaler methylcellulose (laxative) 500 mg 500 mg PO DAILY #30 tabs 03/06/20 tablet (Citrucel) lactobacillus combination no.8 3 3,000 mmu cells PO DAILY #30 caps 07/29/20 billion cell capsule (Adult Probiotic) hydrocortisone 2.5 % topical cream 1 appl MT QID PRN hemorrhoids #30 01/13/21 with perineal applicator grams (Anusol-HC) valacyclovir 1 gram tablet 1,000 mg PO Q8H 7 days #21 tabs 03/27/21 (Valtrex) bdtsew-eapgozeq-ppsjchq 1 cap PO QID #120 caps 06/09/21 12,000-38,000-60,000 unit capsule,delayed rel (Creon) lubiprostone 24 mcg capsule 24 mcg PO BID #60 caps 06/09/21 (Amitiza) pantoprazole 40 mg tablet,delayed 40 mg PO DAILY #30 tabs 06/09/21 release sucralfate 100 mg/mL oral 10 ml PO BEDTIME #400 mL 06/09/21 suspension sumatriptan succinate 25 mg tablet See Rx Instructions PO .COMPLEX #9 08/19/21 tabs ProAir HFA 90 mcg/actuation 1 puff inhalation Q6H PRN 09/23/21 aerosol inhaler (albuterol sulfate) shortness of breath or wheezing 30 days #8.5 grams Allergies Allergy/AdvReac Type Severity Reaction Status Date / Time nut - unspecified Allergy Severe Anaphylaxis Verified 11/04/21 15:16 peanut [Peanut] Allergy Severe ANAPHYLAXIS Verified 11/04/21 15:16 shellfish derived Allergy Severe Anaphylaxis Verified 11/04/21 15:16 kiwi Allergy Mild scratchy Verified 11/04/21 15:16 throw, swollen tongue Fish Containing Products Allergy throat Verified 11/04/21 15:16 closes peach Allergy mild Verified 11/04/21 15:16 Review of Systems Review of Systems: Yes all other systems are reviewed and are negative Constitutional: Constitutional: Reports no additional constitutional complaints, Denies body ache(s), Denies chills, Denies fever(s), Denies headache(s) and Denies weakness Eyes: Eyes: Reports no additional eye complaints and Denies change in vision ENT: Reports system reviewed and no additional complaints, except as documented, Denies dizziness, Denies headache(s), Denies nasal congestion, Denies nasal discharge and Denies neck pain Cardiovascular: Cardiovascular: Reports no additional cardiovascular complaints, Denies chest pain, Denies leg edema and Denies dyspnea Respiratory: Respiratory: Reports no additional respiratory complaints, Denies cough and Denies dyspnea Gastrointestinal: Gastrointestinal: Reports no additional gastrointestinal complaints, Denies abdominal pain, Denies diarrhea, Denies nausea and Denies vomiting Genitourinary: Genitourinary: Reports no additional female genitourinary complaints and Denies urinary incontinence Musculoskeletal: Musculoskeletal: Reports no additional musculoskeletal complaints, Denies back pain, Reports arthralgias, Reports joint swelling, Denies neck pain, Denies numbness and Denies tingling Integumentary/Breasts: Skin/Breast: Reports system reviewed and no additional complaints, except as docu and Denies rash Neurologic: Reports system reviewed and no additional complaints, except as documented, Denies Abnormal speech present, Denies dizziness, Denies headache(s), Denies numbness, Denies tingling and Denies weakness PMFSH Past Medical History Attestation statement: The following information was validated with the patient. Source: old records reviewed and nursing notes reviewed Medical History Asthma Conjunctivitis Diverticulosis Gastroesophageal reflux disease HTN (hypertension) Hx of chest pain Otitis media PVD (peripheral vascular disease) Surgical History H/O colonoscopy H/O splenectomy History of bladder surgery History of cholecystectomy History of esophagogastroduodenoscopy (EGD) History of hysterectomy History of tubal ligation Hx of endoscopy Hx of varicose vein ligation Family History Family History Father Alzheimers disease Mother Asthma attack Brother Hypertension Hypercholesterolemia Depression Sister Heart disease Diabetes Daughter COPD (chronic obstructive pulmonary disease) Sister Uterine cancer Brother Throat cancer Other Mental health disorder Social History Social History Household Members: Children and Other Housing: House Are you a primary home care administrator to a significant other at home: No Do you presently have visiting nurse or other home services: No Alcohol intake: never Patient Tobacco Use Status: Former Tobacco user (5 years ago) Quit Date: 5 years ago e-Cigarette/Vaping Use: Never Used Advance Directives: No Advance Directives Information Provided: No service: No Current occupational status: disabled Cognitive needs: No Hearing needs: No Vision needs: Yes Physical Exam Vital Signs: Vital Signs: Last Vital Signs Temp 98.3 F 11/04/21 17:29 Pulse 68 11/04/21 17:29 Resp 18 11/04/21 17:29 BP 146/84 H 11/04/21 17:29 Pulse Ox 99 11/04/21 17:29 O2 Del Method 11/04/21 17:29 BMI result Body Mass Index 31.2 Const: General: cooperative, healthy appearing, comfortable and no acute distress Orientation/consciousness: patient oriented x3 Limitations: no limitations HEENT: Head: Yes normal to inspection Ears: hearing grossly normal bilaterally General nose exam: Normal external nose present Face and sinus: Yes normal facial exam Mouth: Normal oral and palatal mucosa present Throat: Yes posterior oropharynx normal Eyes: General: appearance normal, both eyes and all related structures Pupils: Equal, round and reactive pupils present Neck: Neck: Yes normal visual inspection Chest: Chest palpation & inspection: normal inspection of the chest Resp: Effort & Inspection: normal respiratory effort Auscultation: clear to auscultation bilaterally Cardio: Rate: regular rate Rhythm: regular rhythm Peripheral pulses: Peripheral pulses 2+ throughout GI: Inspection: Yes normal to inspection Palpation (GI): Soft to palpation and nontender Auscultation: normal bowel sounds Back/Spine/Pelvis: Thoracic/Lumbar Spine: thoracic and lumbar spine normal to inspection Skin: General skin exam: no rashes or lesions noted Neuro: General: patient oriented x3, no focal motor deficits and normal sensation to monofilament Cranial nerves: Yes Equal, round and reactive pupils present Cognition (Neuro): normal cognition Speech: No Abnormal speech present Gait exam (Neuro): Normal gait present Motor exam (neuro): 5/5 motor strength present throughout Extrem: Other: Tenderness and swelling over the right lateral ankle with full range of motion. Neurovascular intact distally General: Yes normal to inspection Course Course Course Narrative: X-ray show no acute abnormality. Likely sprain. Patient placed in air cast and given crutches for home. Reviewed rice. Reviewed worrisome signs and symptoms of when to return to the emergency department. Comfortable discharge home. MDM - Extremity Injury (Lower) MDM Narrative Medical decision making narrative: 51-year-old female here with right ankle pain after an inversion injury last night. Will check x-rays Medical Records Attestation: I reviewed the patient's medical records. Lab Data Attestation: I reviewed the patient's lab results. Imaging Data ankle xray: Attestation: I personally reviewed and interpreted this imaging study as follows: Radiologist's impression: [address] [address] XRay Report Signed Patient: Araceli Matson MR#: [id number] : 1970 Acct:[id number] Age/Sex: 51 / F ADM Date: 11/04/21 Loc: HO.ED Attending Dr: Ordering Physician: Betty Landrum NP Date of Service: 11/04/21 Procedure(s): XR ankle RT min 3V Accession Number(s): [id number] cc: Betty Landrum NP~ EXAMINATION: XR ANKLE, RIGHT CLINICAL INFORMATION: Ankle injury? COMPARISON: None? TECHNIQUE: AP, lateral, and mortise views of the right ankle. FINDINGS: There is mild bilateral soft tissue swelling. No fractures are seen. The ankle mortise appears stable. No evidence of a joint effusion.? XR/XR ankle RT min 3V IMPRESSION: No acute osseous injury. Procedures Procedure Narrative Procedure Narrative: Air cast, crutches Discharge Plan Discharge Clinical Impression: Ankle sprain and strain Patient Disposition: Home, Self-Care Instructions: Ankle Sprain (ED), Ankle Stirrup Splint (ED) Additional Instructions: Rest the ankle, elevate, use the Aircast and crutches until able to bear weight without experiencing pain Ice the area Motrin or Tylenol for pain or fever as needed Prescriptions: No Action albuterol sulfate 2.5 mg /3 mL (0.083 %) solution for nebulization 2.5 mg inhalation TID PRN (Reason: shortness of breath or wheezing) 30 Days Qty: 90 3RF fluticasone propionate 110 mcg/actuation HFA aerosol inhaler 1 puff PO BID 30 Days Qty: 12 3RF valacyclovir [Valtrex] 1 gram tablet 1,000 mg PO Q8H 7 Days Qty: 21 0RF albuterol sulfate [ProAir HFA] 90 mcg/actuation HFA aerosol inhaler 1 puff inhalation Q6H PRN (Reason: shortness of breath or wheezing) 30 Days Qty: 8.5 3RF eszopiclone 3 mg tablet 3 mg PO BEDTIME gabapentin 600 mg tablet 600 mg PO TID clonazepam 2 mg tablet 2 mg PO BID PRN (Reason: Anxiety) duloxetine 60 mg capsule,delayed release(DR/EC) 60 mg PO DAILY diphenhydramine HCl 25 mg tablet 25 mg PO BEDTIME PRN (Reason: Insomnia) montelukast 10 mg tablet 10 mg PO DAILY lorazepam 2 mg tablet 2 mg PO BEDTIME PRN (Reason: Anxiety) docusate sodium [Colace] 100 mg capsule 100 mg PO DAILY 30 Days Qty: 30 1RF clonidine HCl 0.1 mg tablet 0.1 mg PO BID sumatriptan succinate 25 mg tablet See Rx Instructions PO .COMPLEX Qty: 9 1RF Rx Instructions: take 1 tab at onset of headache; if no relief may repeat 1 tab after at least 2 hrs; max = 4 tabs/24 hr PO hydrocortisone [Anusol-HC] 2.5 % cream with perineal applicator 1 appl MT QID PRN (Reason: hemorrhoids) Qty: 30 2RF Citrucel 500 mg tablet 500 mg PO DAILY Qty: 30 2RF Adult Probiotic 3 billion cell capsule 3,000 mmu cells PO DAILY Qty: 30 2RF Rx Instructions: administer with a meal sucralfate 100 mg/mL suspension 10 ml PO BEDTIME Qty: 400 6RF pantoprazole 40 mg tablet,delayed release (DR/EC) 40 mg PO DAILY Qty: 30 5RF Rx Instructions: take one tablet half an hour before breakfast lubiprostone [Amitiza] 24 mcg capsule 24 mcg PO BID Qty: 60 5RF Creon 12,000-38,000 -60,000 unit capsule,delayed release(DR/EC) 1 cap PO QID Qty: 120 5RF Rx Instructions: administer with meals and/or snacks Referrals: Luis Panda PA-C [Primary Care Provider] -
== END 2021-11-04 19:23 | disposition home or self-care (01) ==
PROVIDERS: Emergency Provider Internal Medicine; PCP Physician Assistant
DX: S93.401A Sprain of unspecified ligament of right ankle, initial encounter (principal); W01.0XXA Fall on same level from slipping, tripping and stumbling without subsequent striking against object, initial encounter; Y93.E1 Activity, personal bathing and showering; Y92.002 Bathroom of unspecified non-institutional (private) residence as the place of occurrence of the external cause; Y99.9 Unspecified external cause status; Z79.899 Other long term (current) drug therapy
CPT/HCPCS: 73610; 99283

== ENCOUNTER 2021-11-27 07:45 | Day surgery (SDC) | payer OTHER, SELFPAY ==
--- NOTE | 2021-11-26 11:52 | P.CONAN_ITS ---
Documented by User: Shaila Montiel NP 11/26/21 11:57 HPI - Anesthesia Eval Consult details Narrative: 51yo F for Upper Endoscopy 07/2021 yearly cardiac appt: Reports of sharp chest pain occurring randomly, atypical sounding for angina.? Prior notes indicate coronary CTA done last year showing no evidence of CAD.? Exercise stress test done 04/30/2020 showed decreased exercise capacity, no EKG changes of ischemia.? Last echo 05/10/2020 shows EF 55- 60% mild increase in the LV wall thickness, no regional wall motion abnormalities.? Reviewed all the findings with her.? Offered reassurance that her sharp chest pain is noncardiac in nature.? s/p EGD and colo 04/2020 with [facility] Active Problems Active Problems: All Active Problems (Updated 11/05/21 @ 00:02 by Background Daemon) JEROME (generalized anxiety disorder) (Acute) Impaired glucose metabolism (Acute) Migraine (Acute) MDD (major depressive disorder), recurrent episode, moderate (Acute) Menopausal symptom (Acute) Annual physical exam (Acute) Swelling of both lips (Acute) Diverticulosis (Acute) Gastroesophageal reflux disease (Acute) HTN (hypertension) (Acute) Asthma (Acute) Obese (Acute) PVD (peripheral vascular disease) (Acute) Constipation (Acute) Colon cancer screening (Acute) Chest pain (Acute) Equivocal stress test (Acute) Past Medical History Medical History Asthma Conjunctivitis Diverticulosis Gastroesophageal reflux disease HTN (hypertension) Hx of chest pain Otitis media PVD (peripheral vascular disease) Family History Family History Father Alzheimers disease Mother Asthma attack Brother Hypertension Hypercholesterolemia Depression Sister Heart disease Diabetes Daughter COPD (chronic obstructive pulmonary disease) Sister Uterine cancer Brother Throat cancer Other Mental health disorder Surgical History Surgical History H/O colonoscopy H/O splenectomy History of bladder surgery History of cholecystectomy History of esophagogastroduodenoscopy (EGD) History of hysterectomy History of tubal ligation Hx of endoscopy Hx of varicose vein ligation Social History Social History Household Members: Children and Other Housing: House Are you a primary director long term care to a significant other at home: No Do you presently have visiting nurse or other home services: No Alcohol intake: never Patient Tobacco Use Status: Former Tobacco user Quit Date: 2002 e-Cigarette/Vaping Use: Never Used Use of substances other than those prescribed or required for medical reasons: No Are you DNR?: No Advance Directives: No Advance Directives Information Provided: Yes service: No Current occupational status: disabled Cognitive needs: No Hearing needs: No Vision needs: Yes Meds Allergies Allergy/AdvReac Type Severity Reaction Status Date / Time nut - unspecified Allergy Severe Anaphylaxis Verified 11/04/21 15:16 peanut [Peanut] Allergy Severe ANAPHYLAXIS Verified 11/04/21 15:16 shellfish derived Allergy Severe Anaphylaxis Verified 11/04/21 15:16 kiwi Allergy Mild scratchy Verified 11/04/21 15:16 throw, swollen tongue Fish Containing Products Allergy throat Verified 11/04/21 15:16 closes peach Allergy mild Verified 11/04/21 15:16 Home Medications Medication Instructions Recorded Confirmed Last Taken Type clonazepam 2 mg tablet 2 mg PO BID PRN Anxiety 01/25/20 08/19/21 Unknown History diphenhydramine HCl 25 mg tablet 25 mg PO BEDTIME PRN Insomnia 01/25/20 08/19/21 Unknown History duloxetine 60 mg capsule,delayed 60 mg PO DAILY 01/25/20 08/19/21 Unknown History release eszopiclone 3 mg tablet 3 mg PO BEDTIME 01/25/20 08/19/21 Unknown History gabapentin 600 mg tablet 600 mg PO TID 01/25/20 08/19/21 Unknown History lorazepam 2 mg tablet 2 mg PO BEDTIME PRN Anxiety 01/25/20 08/19/21 Unknown History montelukast 10 mg tablet 10 mg PO DAILY 01/25/20 08/19/21 Unknown History clonidine HCl 0.1 mg tablet 0.1 mg PO BID 05/13/20 08/19/21 Unknown History Exam Exam Date and Time: November 26, 2021 1152 Pertinent Lab Results Pertinent Lab Results: Laboratory Tests 04/18/21 04/18/21 08:49 08:49 WBC 7.7 Hgb 12.9 Hct 40.4 Plt Count 264 Sodium 140 Potassium 4.4 Chloride 109 H Carbon Dioxide 26 BUN 15 Creatinine 0.93 Narrative Narrative: EKG 07/2021 SR, no acute ST/ T wave abn, computer read of prior septal infarct however this findings most likely reflective of lead placement, rate 69 Assessment and Plan Assessment Anesthesia Assessment: Chart Reviewed Documented by User: Winston Ambriz MD 11/27/21 09:34 PMFSH Past Medical History Medical History Asthma Conjunctivitis Diverticulosis Gastroesophageal reflux disease HTN (hypertension) Hx of chest pain Otitis media PVD (peripheral vascular disease) Family History Family History Father Alzheimers disease Mother Asthma attack Brother Hypertension Hypercholesterolemia Depression Sister Heart disease Diabetes Daughter COPD (chronic obstructive pulmonary disease) Sister Uterine cancer Brother Throat cancer Other Mental health disorder Family history of problems with anesthesia: No Surgical History Surgical History H/O colonoscopy H/O splenectomy History of bladder surgery History of cholecystectomy History of esophagogastroduodenoscopy (EGD) History of hysterectomy History of tubal ligation Hx of endoscopy Hx of varicose vein ligation History of Problems with Anesthesia: Yes Social History Social History Household Members: Children and Other Housing: House Are you a primary director long term care to a significant other at home: No Do you presently have visiting nurse or other home services: No Alcohol intake: never Patient Tobacco Use Status: Former Tobacco user Quit Date: 2002 e-Cigarette/Vaping Use: Never Used Use of substances other than those prescribed or required for medical reasons: No Are you DNR?: No Advance Directives: No Advance Directives Information Provided: Yes service: No Current occupational status: disabled Cognitive needs: No Hearing needs: No Vision needs: Yes Meds Allergies Allergy/AdvReac Type Severity Reaction Status Date / Time nut - unspecified Allergy Severe Anaphylaxis Verified 11/04/21 15:16 peanut [Peanut] Allergy Severe ANAPHYLAXIS Verified 11/04/21 15:16 shellfish derived Allergy Severe Anaphylaxis Verified 11/04/21 15:16 kiwi Allergy Mild scratchy Verified 11/04/21 15:16 throw, swollen tongue Fish Containing Products Allergy throat Verified 11/04/21 15:16 closes peach Allergy mild Verified 11/04/21 15:16 Home Medications Medication Instructions Recorded Confirmed Last Taken Type clonazepam 2 mg tablet 2 mg PO BID PRN Anxiety 01/25/20 08/19/21 Unknown History diphenhydramine HCl 25 mg tablet 25 mg PO BEDTIME PRN Insomnia 01/25/20 08/19/21 Unknown History duloxetine 60 mg capsule,delayed 60 mg PO DAILY 01/25/20 08/19/21 Unknown History release eszopiclone 3 mg tablet 3 mg PO BEDTIME 01/25/20 08/19/21 Unknown History gabapentin 600 mg tablet 600 mg PO TID 01/25/20 08/19/21 Unknown History lorazepam 2 mg tablet 2 mg PO BEDTIME PRN Anxiety 01/25/20 08/19/21 Unknown History montelukast 10 mg tablet 10 mg PO DAILY 01/25/20 08/19/21 Unknown History clonidine HCl 0.1 mg tablet 0.1 mg PO BID 05/13/20 08/19/21 Unknown History Exam Airway Mallampati Class: II TM Dist: >3cm Partial: Upper and Lower Heart: rrr Lungs: clear Assessment and Plan Final Anesthetic Review Family History of Problems with Anesthesia: No History of Problems with Anesthesia: Yes NPO: Yes ASA Class: II Final Preanesthetic Review: No Changes in Pt Med Stat, Meds/Allgs Chart Reviewed, Consent Obtained/Reviewed and Anes Risks/Benef Reviewed Patient Risk: Intermediate Procedure Risk: Low Anesthetic Plan Anesthetic Plan: MAC: Disposition: Standard PACU
[2021-11-27 08:16] VITALS: BP 125/71; PULSE 53; RESP 16; TEMP 35.8; O2SAT 98; BMI 31.2
[2021-11-27] MEDS: Lactated Ringers 1,000 ML 100 ML IVCONT (08:26)
--- NOTE | 2021-11-27 09:21 | P.HPSUR_ITS ---
Pre-Procedural Eval Section A Date of Service: 11/27/21 Section B Chief Complaint: reflux Relevant Family History (Specify if Yes): No Relevant Social History: None Present Medications: see Short Stay Collaborative assessment Medical History: Significant History (Asthma Conjunctivitis Diverticulosis Gastroesophageal reflux disease HTN (hypertension) Hx of chest pain Otitis media PVD (peripheral vascular disease)) History of Previous Operations: Relevant previous surgery/procedure and date(s) (/O colonoscopy H/O splenectomy History of bladder surgery History of cholecystectomy History of esophagogastroduodenoscopy (EGD) History of hysterectomy History of tubal ligation Hx of endoscopy Hx of varicose vein ligation) Allergies: Allergies Allergy/AdvReac Type Severity Reaction Status Date / Time nut - unspecified Allergy Severe Anaphylaxis Verified 11/04/21 15:16 peanut [Peanut] Allergy Severe ANAPHYLAXIS Verified 11/04/21 15:16 shellfish derived Allergy Severe Anaphylaxis Verified 11/04/21 15:16 kiwi Allergy Mild scratchy Verified 11/04/21 15:16 throw, swollen tongue Fish Containing Products Allergy throat Verified 11/04/21 15:16 closes peach Allergy mild Verified 11/04/21 15:16 Review of Systems Sugical H&P ROS: Negative: Constitution, Cardiovascular, Respiratory, Neurological, Psychiatric, Hem-Onc, Allergic/Immunologic, Gastrointestinal, Genitourinary, Musculoskeletal, Integumentary, Endocrine and Eyes/E ars/Nose/Throat Exam Surgical H&P Exam: Normal: HEENT, Normal: Heart, Normal: Lungs, Normal: Extremities, Normal: Abdomen, Normal: Skin and Normal: Neurological Plan Diagnosis/Plan: Unchanged I have reviewed the history and physical and performed a pertinent physical examination on my patient. No changes have occurred unless specified.
--- NOTE | 2021-11-27 09:22 | W.PM.OPN ---
Operative Note Operative Note Date of Service: 11/27/21 Narrative: Procedure Description: EGD Indication: reflux, dysphagia Anesthesia: MAC FLEXIBLE TRANSORAL UPPER GASTROINTESTINAL ENDOSCOPY UPPER ENDOSCOPY Consent: Indications for the procedure and potential complications of bleeding, perforation, reaction to medications and missed diagnosis were discussed with the patient and informed consent was obtained. Instrument: Olympus GIF H 190 J mid size upper endoscope Monitoring: Vital signs and clinical assessment, continuous EKG monitoring, Pulse oximetry, Carbon Dioxide monitoring and blood pressure monitoring were done throughout the procedure. Procedure: The patient was placed in the left lateral decubitis position and pre-procedure medications were administered and a bite block was placed. The endoscope was inserted into the mouth and advanced under direct vision to the third part of duodenum. A careful inspection was made as the upper endoscope was withdrawn including a retroflexed examination of the proximal stomach; Findings and interventions are described below. Findings: Larynx:normal Esophagus: GE junction at 35 cm, diaphragm hiatus at 35 cm, mild esophagitis at GEJ, bx taken as well as from distal and proximal esophagus. LES and UES dilated to 20 mm, no tears seen. Stomach: Patchy gastric erythema. Biopsies were obtained. Grade 2 flap valve on retroflexed examination of the cardia. Duodenum: mild bulbar erythema, bx taken Intervention: Biopsies as noted above Impression/Findings: gastritis duodenitis esophagitis, mild PLAN: cont with PPI consider changing PPI or increasing dose if ongoing sx then can consider GREENE, manometry or PH impedance
[2021-11-27 10:06] VITALS: BP 101/47; PULSE 58; RESP 16; TEMP 36.2; O2SAT 96
[2021-11-27 10:21] VITALS: BP 118/58; PULSE 50; RESP 16; TEMP 36.1; O2SAT 99
== END 2021-11-27 11:03 | disposition home or self-care (01) ==
PROVIDERS: PCP Physician Assistant; Visit Provider Internal Medicine Gastroenterology
PROC: 0DJ08ZZ Inspection of Upper Intestinal Tract, Via Natural or Artificial Opening Endoscopic (ICD-10-PCS; CPT 43235; principal; 2021-11-27 09:20)
DX: K21.9 Gastro-esophageal reflux disease without esophagitis (principal); R13.10 Dysphagia, unspecified; K29.50 Unspecified chronic gastritis without bleeding; K29.80 Duodenitis without bleeding; K20.80 Other esophagitis without bleeding; K44.9 Diaphragmatic hernia without obstruction or gangrene; E55.9 Vitamin D deficiency, unspecified; K59.00 Constipation, unspecified; I10 Essential (primary) hypertension; J45.909 Unspecified asthma, uncomplicated; I73.9 Peripheral vascular disease, unspecified; Z90.49 Acquired absence of other specified parts of digestive tract; Z98.890 Other specified postprocedural states; Z87.891 Personal history of nicotine dependence
CPT/HCPCS: 43249; 43239; 88305; 88342; C1726

== ENCOUNTER 2021-12-08 15:18 | Outpatient (REF) | payer OTHER, SELFPAY | END 2021-12-08 15:19 | disposition home or self-care (01) | LOC: HO.LAB 15:18 | PROVIDERS: PCP Physician Assistant; Visit Provider Nurse Practitioner Family | DX: Z91.09 Other allergy status, other than to drugs and biological substances (principal) | CPT/HCPCS: 36415; 86003; 99212 ==

== ENCOUNTER 2022-02-25 14:57 | Outpatient (REF) | payer OTHER, SELFPAY ==
--- NOTE | ~2022-02-25 | MM_ITS ---
EXAMINATION: MM SCREENING DIGITAL BREAST TOMOSYNTHESIS, BILATERAL CLINICAL INFORMATION: Screening. Asymptomatic. The lifetime risk of breast cancer based on the Tyrer-Cuzick Model is 7%. COMPARISON: Mammography: 02/24/2021, 02/23/2020, 02/01/2019 TECHNIQUE: Digital breast tomosynthesis is performed in both the craniocaudal and mediolateral oblique views along with computer-aided detection (CAD). Synthesized 2D images are generated from the tomosynthesis. FINDINGS: There are scattered areas of fibroglandular density (ACR BI-RADS breast composition Category b). Breast tissue composition borders on predominantly fatty. Background stromal and fibroglandular similar to prior studies. No developing density or interval architectural changes. There are no significant masses, abnormal calcifications, or other abnormalities. MM/MM tomosynthesis screening BI IMPRESSION: No mammographic evidence of malignancy. ASSESSMENT: BI-RADS 1: Negative RECOMMENDATION: Routine annual mammography screening. This patient's information was entered into a reminder system with a target due date for their next mammogram.
== END 2022-02-25 14:58 | disposition home or self-care (01) ==
LOC: HO.MAMMO 14:57
PROVIDERS: PCP Physician Assistant; Visit Provider Physician Assistant
DX: Z12.31 Encounter for screening mammogram for malignant neoplasm of breast (principal)
CPT/HCPCS: 77063; 77067

== ENCOUNTER → 2022-03-09 13:22 | Outpatient (BNVA) | payer OTHER, SELFPAY | PROVIDERS: PCP Physician Assistant; Visit Provider Nurse Practitioner Family | DX: K21.00 Gastro-esophageal reflux disease with esophagitis, without bleeding (principal); R14.0 Abdominal distension (gaseous); R10.10 Upper abdominal pain, unspecified | CPT/HCPCS: 99212 ==

== ENCOUNTER 2022-04-16 09:22 | Outpatient (REF) | payer OTHER, SELFPAY ==
--- NOTE | ~2022-04-16 | US_ITS ---
EXAMINATION: US ABDOMEN COMPLETE CLINICAL INFORMATION: Unspecified abdominal pain. COMPARISON: CT abdomen and pelvis 03/17/2013. TECHNIQUE: Real-time imaging of the abdominal viscera. FINDINGS: PANCREAS: Partially visualized body of the pancreas is unremarkable. The head and the tail of pancreas is not seen. ABDOMINAL AORTA: The proximal, mid, and distal segments are normal in caliber. INFERIOR VENA CAVA: Visualized portions are normal. LIVER: The liver is normal in size. The liver contour is normal. There is mild increased liver echogenicity. No focal lesion seen. There are numerous calcifications seen in the right hepatic lobe largest measuring 0.6 x 0.5 x 0.7 cm. No focal hepatic lesion. There is no intrahepatic biliary duct dilatation seen. GALLBLADDER: Surgically absent. COMMON BILE DUCT: Normal in caliber measuring 0.7 cm in diameter. RIGHT KIDNEY: Normal. No hydronephrosis. No renal calculi or focal parenchymal lesions. The kidney measures 10.3 cm in maximum dimension. LEFT KIDNEY: Normal. No hydronephrosis. No renal calculi or focal parenchymal lesions. The kidney measures 9.0 cm in maximum dimension. SPLEEN: Surgically absent. FREE FLUID: None. US/US abdomen complete IMPRESSION: 1. Mild increased liver echogenicity. No focal lesion seen. 2. The gallbladder has been surgically removed. 3. Rest of the abdominal ultrasound is unremarkable.
== END 2022-04-16 09:23 | disposition home or self-care (01) ==
LOC: HO.US 09:22
PROVIDERS: PCP Physician Assistant; Visit Provider Nurse Practitioner Family
DX: R10.9 Unspecified abdominal pain (principal); R14.0 Abdominal distension (gaseous)
CPT/HCPCS: 76700

== ENCOUNTER 2022-05-04 12:47 | Outpatient (REF) | payer OTHER, SELFPAY ==
[2022-05-04 15:13] LABS: Hematocrit 42.6 % (37.0-47.0); Hemoglobin 13.8 g/dl (12.0-16.0); Mean Corpuscular HGB Conc 32.4 g/dl (31.0-35.0); Mean Corpuscular Hemoglobin 27.3 pg (27.0-33.0); Mean Corpuscular Volume 84.4 fL (80.0-98.0); Mean Platelet Volume 11.2 fL (9.4-12.3); Platelet Count 271 X10*3/uL (160-400); Red Blood Count 5.05 X10*6/uL (4.20-5.50); Red Cell Distribution Width 13.5 % (11.0-16.0); White Blood Count 7.7 X10*3/uL (4.8-10.8)
[2022-05-04 15:57] LABS: Alanine Aminotransferase 17 U/L (0-31); Albumin Level 4.2 g/dL (3.5-5.0); Alkaline Phosphatase 72 U/L (39-117); Anion Gap 13 (12-20); Aspartate Amino Transferase 19 U/L (5-31); Bilirubin Total 0.6 mg/dL (0.0-1.0); Blood Urea Nitrogen 20 mg/dL (9-16); Calcium 9.7 mg/dL (8.4-10.2); Carbon Dioxide 26 mmol/L (22-29); Chloride 105 mmol/L (96-108); Estimated Glomerular Filt Rate > 60; Glucose Random 95 mg/dL (60-115); Potassium 4.7 mmol/L (3.3-5.1); Sodium 139 mmol/L (135-145); Total Protein 7.9 g/dL (6.5-8.0)
== END 2022-05-04 12:48 | disposition home or self-care (01) ==
LOC: HO.LAB 12:47
PROVIDERS: PCP Physician Assistant; Visit Provider Nurse Practitioner Family
DX: K21.9 Gastro-esophageal reflux disease without esophagitis (principal); R10.9 Unspecified abdominal pain; J21.9 Acute bronchiolitis, unspecified; K62.5 Hemorrhage of anus and rectum; K59.00 Constipation, unspecified
CPT/HCPCS: 36415; 80053; 85027; 99212

== ENCOUNTER 2022-06-16 12:45 | Day surgery (SDC) | payer OTHER, SELFPAY ==
[2022-06-11 12:55] VITALS: BMI 26.8
--- NOTE | 2022-06-15 13:43 | P.CONAN_ITS ---
HPI - Anesthesia Eval Consult details Narrative: 52yo F for Sigmoidoscopy Flexible s/p EGD 11/2021 with [facility] Active Problems Active Problems: All Active Problems (Updated 06/11/22 @ 12:49 by Arely Ríos RN) HTN (hypertension) (Acute) Asthma (Acute) Obese (Acute) PVD (peripheral vascular disease) (Acute) Constipation (Acute) Colon cancer screening (Acute) Chest pain (Acute) Equivocal stress test (Acute) Swelling of both lips (Acute) Annual physical exam (Acute) Menopausal symptom (Acute) MDD (major depressive disorder), recurrent episode, moderate (Acute) Migraine (Acute) Impaired glucose metabolism (Acute) JEROME (generalized anxiety disorder) (Acute) Annual physical exam (Acute) Multiple food allergies (Acute) GERD (gastroesophageal reflux disease) (Acute) Diverticulosis (Acute) Gastroesophageal reflux disease (Acute) Past Medical History Medical History (Updated 06/25/22 @ 14:06 by Cruz Vincent) Anxiety Asthma Conjunctivitis Diverticulosis Gastroesophageal reflux disease HTN (hypertension) Hx of chest pain Hx of sigmoidoscopy Migraines Otitis media PVD (peripheral vascular disease) Family History Family History Father Alzheimers disease Mother Asthma attack Brother Hypertension Hypercholesterolemia Depression Sister Heart disease Diabetes Daughter COPD (chronic obstructive pulmonary disease) Sister Uterine cancer Brother Throat cancer Other Mental health disorder Family history of problems with anesthesia: No Surgical History Surgical History H/O colonoscopy H/O splenectomy History of bladder surgery History of cholecystectomy History of esophagogastroduodenoscopy (EGD) History of hysterectomy History of tubal ligation Hx of varicose vein ligation History of Problems with Anesthesia: Yes Social History Social History Household Members: Children and Other Housing: House Are you a primary career center director to a significant other at home: No Do you presently have visiting nurse or other home services: No Alcohol intake: never Patient Tobacco Use Status: Former Tobacco user Quit Date: 2002 Tobacco use type: Cigarette e-Cigarette/Vaping Use: Never Used service: No Current occupational status: disabled Cognitive needs: No Hearing needs: No Vision needs: Yes Meds Allergies Allergy/AdvReac Type Severity Reaction Status Date / Time Fish Containing Products Allergy Severe throat Verified 06/23/22 15:24 closes nut - unspecified Allergy Severe Anaphylaxis Verified 06/23/22 15:24 peanut [Peanut] Allergy Severe ANAPHYLAXIS Verified 06/23/22 15:24 shellfish derived Allergy Severe Anaphylaxis Verified 06/23/22 15:24 kiwi Allergy Intermediate scratchy Verified 06/23/22 15:24 throat, swollen tongue peach Allergy Intermediate scratchy Verified 06/23/22 15:24 throat, swollen tongue Home Medications Medication Instructions Recorded Confirmed Last Taken Type clonazepam 2 mg tablet 2 mg PO BID PRN Anxiety 01/25/20 06/23/22 06/16/22 History diphenhydramine HCl 25 mg tablet 25 mg PO BEDTIME PRN Insomnia 01/25/20 06/23/22 Unknown History duloxetine 60 mg capsule,delayed 60 mg PO DAILY 01/25/20 06/23/22 06/16/22 History release eszopiclone 3 mg tablet 3 mg PO BEDTIME 01/25/20 06/23/22 Unknown History gabapentin 600 mg tablet 600 mg PO TID 01/25/20 06/23/22 06/16/22 History lorazepam 2 mg tablet 2 mg PO BEDTIME PRN Anxiety 01/25/20 06/23/22 Unknown History montelukast 10 mg tablet 10 mg PO DAILY 01/25/20 06/23/22 Unknown History clonidine HCl 0.1 mg tablet 0.1 mg PO BID 05/13/20 06/23/22 06/16/22 History Exam Exam Date and Time: June 15, 2022 1343 Height,Weight and Vital Signs: Height 5 ft 6 in Weight 75.296 kg Pertinent Lab Results Pertinent Lab Results: Laboratory Tests 05/04/22 05/04/22 13:57 13:57 WBC 7.7 Hgb 13.8 Hct 42.6 Plt Count 271 Sodium 139 Potassium 4.7 Chloride 105 Carbon Dioxide 26 BUN 20 H Creatinine 0.81 Narrative Narrative: EKG 07/2021 SR, no acute ST/ T wave abn, computer read of prior septal infarct however this findings most likely reflective of lead placement, rate 69 Assessment and Plan Assessment Anesthesia Assessment: Chart Reviewed Final Anesthetic Review Family History of Problems with Anesthesia: No History of Problems with Anesthesia: Yes
--- NOTE | 2022-06-16 13:22 | PC.NURSE ---
teaching with fleet enema to patient. demonstration given. patient wants to do procedure to self.
[2022-06-16] MEDS: Sodium Phosphate,Mono-Dibasic 133 ML ENEMA PR (13:27)
[2022-06-16 13:36] VITALS: BP 128/73; PULSE 82; RESP 16; TEMP 36.4; O2SAT 97
[2022-06-16] MEDS: Lactated Ringers 1,000 ML 100 ML IVCONT (13:50)
--- NOTE | 2022-06-16 14:39 | MHC.SHP ---
Pre-Procedural Eval Section A Date of Service: 06/16/22 Section B Chief Complaint: Hemorrhage of anus and rectum Relevant Family History (Specify if Yes): No Relevant Social History: None Present Medications: see Short Stay Collaborative assessment Medical History: Significant History (Anxiety Asthma Conjunctivitis Diverticulosis Gastroesophageal reflux disease HTN (hypertension) Hx of chest pain Migraines Otitis media PVD (peripheral vascular disease)) History of Previous Operations: Relevant previous surgery/procedure and date(s) (H/O colonoscopy H/O splenectomy History of bladder surgery History of cholecystectomy History of esophagogastroduodenoscopy (EGD) History of hysterectomy History of tubal ligation Hx of varicose vein ligation) Allergies: Allergies Allergy/AdvReac Type Severity Reaction Status Date / Time Fish Containing Products Allergy Severe throat Verified 06/11/22 12:42 closes nut - unspecified Allergy Severe Anaphylaxis Verified 05/04/22 12:56 peanut [Peanut] Allergy Severe ANAPHYLAXIS Verified 05/04/22 12:56 shellfish derived Allergy Severe Anaphylaxis Verified 05/04/22 12:56 kiwi Allergy Intermediate scratchy Verified 06/11/22 12:42 throat, swollen tongue peach Allergy Intermediate scratchy Verified 06/11/22 12:42 throat, swollen tongue Review of Systems Sugical H&P ROS: Negative: Constitution, Cardiovascular, Respiratory, Neurological, Psychiatric, Hem-Onc, Allergic/Immunologic, Gastrointestinal, Genitourinary, Musculoskeletal, Integumentary, Endocrine and Eyes/Ears/Nose/Throat Exam Surgical H&P Exam: Normal: HEENT, Normal: Heart, Normal: Lungs, Normal: Extremities, Normal: Abdomen, Normal: Skin and Normal: Neurological Plan Diagnosis/Plan: Unchanged I have reviewed the history and physical and performed a pertinent physical examination on my patient. No changes have occurred unless specified. Sigmoidoscopy for eval of rectal bleeding. Time Spent With Patient Time: Total time managing care of this patient today ____ minutes.
--- NOTE | 2022-06-16 14:41 | W.PM.OPN ---
Operative Note Operative Note Date of Service: 06/16/22 Narrative: Operative Information Procedure Description: sigmoidoscopy Indication: rectal bleeding Anesthesia: MAC Sigmoidoscopy Instrument: Upper endoscope Colonoscopy Monitoring: Vital signs and clinical assessment, continuous EKG monitoring, Pulse oximetry, Carbon Dioxide monitoring and blood pressure monitoring were done throughout the procedure. Procedure: The patient was placed in the left lateral decubitis position and pre-procedure medications were administered. After a digital rectal examination of the ano-rectum, the video colonoscope was inserted into the rectum and advanced through the colon to the transverse colon. The scope was slowly withdrawn in a retrograde panoramic fashion and the colon mucosa was carefully examined including a retroflexed view of the rectum. Findings and interventions are described below. Procedure Difficulty: easy Findings: Transverse Colon -normal Descending Colon:normal Sigmoid Colon: normal Rectum: Retroflexion with small internal hemorrhoids, grade I Anorectum - normal Colon preparation: good Impression and Post Procedure Diagnosis: internal hemorrhoids, normal mucosa Plan: high fiber diet can use sitz bath with epsom salts and anusol --if no better then surgical referral Above findings were reviewed with the patient and relevant handouts were provided if indicated.
--- NOTE | 2022-06-16 15:04 | P.CONAN_ITS ---
[facility] Active Problems Active Problems: All Active Problems (Updated 06/11/22 @ 12:49 by Arely Ríos RN) HTN (hypertension) (Acute) Asthma (Acute) Obese (Acute) PVD (peripheral vascular disease) (Acute) Constipation (Acute) Colon cancer screening (Acute) Chest pain (Acute) Equivocal stress test (Acute) Swelling of both lips (Acute) Annual physical exam (Acute) Menopausal symptom (Acute) MDD (major depressive disorder), recurrent episode, moderate (Acute) Migraine (Acute) Impaired glucose metabolism (Acute) JEROME (generalized anxiety disorder) (Acute) Annual physical exam (Acute) Multiple food allergies (Acute) GERD (gastroesophageal reflux disease) (Acute) Diverticulosis (Acute) Gastroesophageal reflux disease (Acute) Past Medical History Medical History Anxiety Asthma Conjunctivitis Diverticulosis Gastroesophageal reflux disease HTN (hypertension) Hx of chest pain Migraines Otitis media PVD (peripheral vascular disease) Family History Family History Father Alzheimers disease Mother Asthma attack Brother Hypertension Hypercholesterolemia Depression Sister Heart disease Diabetes Daughter COPD (chronic obstructive pulmonary disease) Sister Uterine cancer Brother Throat cancer Other Mental health disorder Family history of problems with anesthesia: No Surgical History Surgical History H/O colonoscopy H/O splenectomy History of bladder surgery History of cholecystectomy History of esophagogastroduodenoscopy (EGD) History of hysterectomy History of tubal ligation Hx of varicose vein ligation History of Problems with Anesthesia: Yes Social History Social History Household Members: Children and Other Housing: House Are you a primary career development engineer to a significant other at home: No Do you presently have visiting nurse or other home services: No Alcohol intake: never Patient Tobacco Use Status: Former Tobacco user Quit Date: 2002 Tobacco use type: Cigarette e-Cigarette/Vaping Use: Never Used Use of substances other than those prescribed or required for medical reasons: No Have you been hit, kicked, punched, or otherwise hurt by someone within the past year? If so, by whom?: No Are you DNR?: No Advance Directives: No Advance Directives Information Provided: Yes (brochure mailed) Advance Directives on File: No Recently lost weight without trying: No Eating poorly because of decreased appetite: No Nutrition Risks: No Nutritional Risk Patient : No Poor oral hygiene: No (has partial dentures) service: No Current occupational status: disabled Cognitive needs: No Hearing needs: No Vision needs: Yes Meds Allergies Allergy/AdvReac Type Severity Reaction Status Date / Time Fish Containing Products Allergy Severe throat Verified 06/11/22 12:42 closes nut - unspecified Allergy Severe Anaphylaxis Verified 05/04/22 12:56 peanut [Peanut] Allergy Severe ANAPHYLAXIS Verified 05/04/22 12:56 shellfish derived Allergy Severe Anaphylaxis Verified 05/04/22 12:56 kiwi Allergy Intermediate scratchy Verified 06/11/22 12:42 throat, swollen tongue peach Allergy Intermediate scratchy Verified 06/11/22 12:42 throat, swollen tongue Active Medications: Current Medications Albuterol Sulfate (Albuterol Sulfate (0.083%) 2.5 Mg/3 Ml Vial.Neb) 2.5 mg INHALE ONCE PRN PRN Reason: Shortness of Breath/Wheezing Lactated Ringer's (Lr) 1,000 mls @ 100 mls/hr IVCONT .Q10H RAUL Last Admin: 06/16/22 13:50 Dose: 100 mls/hr Sodium Biphosphate/Sodium Phosphate (Sodium Phosphate,Eddy-Dibasic 133 Ml Enema) 133 ml NC ONCE PRN PRN Reason: Consult order Last Admin: 06/16/22 13:27 Dose: 133 ml Home Medications Medication Instructions Recorded Confirmed Last Taken Type clonazepam 2 mg tablet 2 mg PO BID PRN Anxiety 01/25/20 06/11/22 06/16/22 History diphenhydramine HCl 25 mg tablet 25 mg PO BEDTIME PRN Insomnia 01/25/20 06/11/22 Unknown History duloxetine 60 mg capsule,delayed 60 mg PO DAILY 01/25/20 06/11/22 06/16/22 History release eszopiclone 3 mg tablet 3 mg PO BEDTIME 01/25/20 06/11/22 Unknown History gabapentin 600 mg tablet 600 mg PO TID 01/25/20 06/11/22 06/16/22 History lorazepam 2 mg tablet 2 mg PO BEDTIME PRN Anxiety 01/25/20 06/11/22 Unknown History montelukast 10 mg tablet 10 mg PO DAILY 01/25/20 06/11/22 Unknown History clonidine HCl 0.1 mg tablet 0.1 mg PO BID 05/13/20 06/11/22 06/16/22 History Exam Exam Date and Time: June 16, 2022 1504 Height,Weight and Vital Signs: Height 5 ft 6 in Weight 75.296 kg Last Vital Signs Temp 97.6 F 06/16/22 13:36 Pulse 82 06/16/22 13:36 Resp 16 06/16/22 13:36 BP 128/73 06/16/22 13:36 Pulse Ox 97 06/16/22 13:36 O2 Del Method Room Air 06/16/22 13:36 Airway Mallampati Class: II TM Dist: >3cm Neck ROM: Full Heart: RRR Lungs: CTA Assessment and Plan Final Anesthetic Review Family History of Problems with Anesthesia: No History of Problems with Anesthesia: Yes ASA Class: II Final Preanesthetic Review: Meds/Allgs Chart Reviewed, Consent Obtained/Reviewed and Anes Risks/Benef Reviewed Patient Risk: Low Procedure Risk: Low Anesthetic Plan Anesthetic Plan: MAC: Disposition: Standard PACU
[2022-06-16 15:14] VITALS: BP 118/64; PULSE 65; RESP 16; TEMP 36.2; O2SAT 96
[2022-06-16 15:31] VITALS: BP 129/88; PULSE 59; RESP 18; TEMP 36.1; O2SAT 98
== END 2022-06-16 15:45 | disposition home or self-care (01) ==
PROVIDERS: PCP Physician Assistant; Visit Provider Internal Medicine Gastroenterology
PROC: 0DJD8ZZ Inspection of Lower Intestinal Tract, Via Natural or Artificial Opening Endoscopic (ICD-10-PCS; CPT 45330; principal; 2022-06-16 14:30)
DX: K62.5 Hemorrhage of anus and rectum (principal); K64.0 First degree hemorrhoids; K57.30 Diverticulosis of large intestine without perforation or abscess without bleeding; K21.9 Gastro-esophageal reflux disease without esophagitis; I10 Essential (primary) hypertension; J45.909 Unspecified asthma, uncomplicated; G43.909 Migraine, unspecified, not intractable, without status migrainosus; F41.1 Generalized anxiety disorder; I73.9 Peripheral vascular disease, unspecified; Z79.51 Long term (current) use of inhaled steroids; Z79.899 Other long term (current) drug therapy; Z87.891 Personal history of nicotine dependence
CPT/HCPCS: 45330

== ENCOUNTER → 2022-06-30 12:45 | Outpatient (BNVA) | payer OTHER, SELFPAY | PROVIDERS: PCP Physician Assistant; Visit Provider Nurse Practitioner Family | DX: K59.04 Chronic idiopathic constipation (principal); K21.00 Gastro-esophageal reflux disease with esophagitis, without bleeding; R10.84 Generalized abdominal pain | CPT/HCPCS: 99212 ==

== ENCOUNTER 2022-07-14 14:23 | Outpatient (REF) | payer OTHER, SELFPAY ==
[2022-07-17 02:18] LABS: Herpes Simplex Type 2 IgG 4.82 index
== END 2022-07-14 14:24 | disposition home or self-care (01) ==
LOC: HO.LAB 14:23
PROVIDERS: PCP Physician Assistant; Visit Provider Physician Assistant
DX: B00.2 Herpesviral gingivostomatitis and pharyngotonsillitis (principal)
CPT/HCPCS: 36415; 86695; 86696

== ENCOUNTER 2022-08-03 17:58 | Emergency (ER) | payer OTHER, SELFPAY ==
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
[2022-08-03 18:21] VITALS: BP 141/90; PULSE 64; RESP 16; TEMP 36.6; O2SAT 100; BMI 32.9
[2022-08-03] MEDS: Acetaminophen 325 MG TABLET 650 MG PO (19:20)
--- NOTE | 2022-08-03 19:22 | PC.NURSE ---
Pt. medicated per MAY.
== END 2022-08-03 21:54 | disposition home or self-care (01) ==
PROVIDERS: Emergency Provider Emergency Medicine; PCP Physician Assistant
DX: S13.4XXA Sprain of ligaments of cervical spine, initial encounter (principal); M54.50 Low back pain, unspecified; R51.9 Headache, unspecified; M54.2 Cervicalgia; V43.52XA Car driver injured in collision with other type car in traffic accident, initial encounter; Y93.9 Activity, unspecified; Y92.410 Unspecified street and highway as the place of occurrence of the external cause; Y99.9 Unspecified external cause status; Z79.899 Other long term (current) drug therapy
CPT/HCPCS: 70450; 72100; 72125; 99283; 99284

== ENCOUNTER 2022-08-05 08:05 | Outpatient (REF) | payer OTHER, SELFPAY ==
--- NOTE | ~2022-08-05 | MR_ITS ---
EXAMINATION: MR ABDOMEN WITHOUT CONTRAST CLINICAL INFORMATION: Unspecified abdominal pain. COMPARISON: Abdominal ultrasound 04/16/2022 TECHNIQUE: MRI of the abdomen without contrast was obtained using routine sequences. Heavily T2 weighted MRCP sequences were also obtained. FINDINGS: LUNG BASES: Unremarkable. ABDOMINAL AND PELVIC WALL: Unremarkable. LIVER AND BILIARY TREE: No intra or extrahepatic biliary duct dilatation or intraluminal filling defect to suggest choledocholithiasis. No loss of signal on opposed phase imaging to stress hepatic steatosis. The dome of the liver was excluded from the [id number] on multiple axial sequences limiting evaluation. GALLBLADDER: Status post cholecystectomy. PANCREAS: Unremarkable. SPLEEN: Spleen is surgically absent. ADRENAL GLANDS: Unremarkable. KIDNEYS AND URETERS: A 1.1 cm macroscopic fat-containing left renal lesion compatible with a small angiomyolipoma. GASTROINTESTINAL TRACT: Unremarkable. VASCULAR: Unremarkable. LYMPH NODES/PERITONEUM: No lymphadenopathy. FREE FLUID: None. OSSEOUS STRUCTURES: Unremarkable. MR/MR MRCP IMPRESSION: 1. No intra or extrahepatic biliary duct dilatation or intraluminal filling defect to suggest choledocholithiasis. The dome of the liver was excluded from the [id number] on multiple axial sequences limiting evaluation. 2. 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
== END 2022-08-05 08:06 | disposition home or self-care (01) ==
LOC: HO.MRI 08:05
PROVIDERS: PCP Physician Assistant; Visit Provider Nurse Practitioner Family
DX: R10.9 Unspecified abdominal pain (principal)
CPT/HCPCS: 74181

== ENCOUNTER → 2022-08-10 12:34 | Outpatient (BNVA) | payer OTHER, SELFPAY | PROVIDERS: PCP Physician Assistant; Referring Provider Physician Assistant; Visit Provider Internal Medicine Cardiovascular Disease | DX: R07.9 Chest pain, unspecified (principal); I10 Essential (primary) hypertension; I73.9 Peripheral vascular disease, unspecified | CPT/HCPCS: 93005; 99212 ==

== ENCOUNTER 2022-08-22 09:52 | Outpatient (REF) | payer OTHER, SELFPAY ==
[2022-08-22 10:44] LABS: Hematocrit 44.5 % (37.0-47.0); Hemoglobin 14.1 g/dl (12.0-16.0); Mean Corpuscular HGB Conc 31.7 g/dl (31.0-35.0); Mean Corpuscular Hemoglobin 27.3 pg (27.0-33.0); Mean Corpuscular Volume 86.2 fL (80.0-98.0); Mean Platelet Volume 9.9 fL (9.4-12.3); Platelet Count 284 X10*3/uL (160-400); Red Blood Count 5.16 X10*6/uL (4.20-5.50); Red Cell Distribution Width 15.2 % (11.0-16.0)
[2022-08-22 11:12] LABS: Creatinine Urine 225.44 mg/dL; Microalbum/Creatinine Ratio Ur 5.7 ug/mg cr
[2022-08-22 11:24] LABS: Alanine Aminotransferase 39 U/L (0-31); Albumin Level 4.4 g/dL (3.5-5.0); Alkaline Phosphatase 72 U/L (39-117); Anion Gap 11 (12-20); Aspartate Amino Transferase 32 U/L (5-31); Bilirubin Total 0.7 mg/dL (0.0-1.0); Blood Urea Nitrogen 17 mg/dL (9-16); Carbon Dioxide 28 mmol/L (22-29); Chloride 109 mmol/L (96-108); Cholesterol 218 mg/dL; Estimated Glomerular Filt Rate > 60; Glucose Fasting 104 mg/dL (60-99); HDL Cholesterol 52 mg/dL; LDL Cholesterol Calculated 140 mg/dl; Potassium 4.9 mmol/L (3.3-5.1); Sodium 143 mmol/L (135-145); Total Protein 8.1 g/dL (6.5-8.0); Triglycerides 132 mg/dL
== END 2022-08-22 09:53 | disposition home or self-care (01) ==
LOC: HO.LAB 09:52
PROVIDERS: PCP Physician Assistant; Visit Provider Physician Assistant
DX: I10 Essential (primary) hypertension (principal)
CPT/HCPCS: 36415; 80053; 80061; 82043; 84443; 85027

== ENCOUNTER 2022-09-24 08:59 | Outpatient (REF) | payer OTHER, SELFPAY ==
--- NOTE | ~2022-09-24 | CT_ITS ---
EXAMINATION: CT INNER EAR TEMPORAL BONES CLINICAL INFORMATION: Otorrhea, left ear. COMPARISON: None. TECHNIQUE: Multidetector helical was performed in the axial plane with generation of oblique axial and coronal reformatted projections. This CT examination was performed using dose optimization techniques as appropriate, variously including the following: *Automated exposure control *Adjustment of mA and/or kV according to patient size (this includes techniques or standardized protocols for targeted exams where dose is matched to indication/reason for exam; i.e. extremities or head) *Use of iterative reconstruction technique DLP: 157 mGy-cm. FINDINGS: Right: The external auditory canal appears normal. The tympanic membrane is not thickened. The middle ear cavity is well-aerated. The scutum is sharp. Prussak's space is clear. The tegmen is intact. The ossicular chain is intact. The facial nerve has a normal course. The inner ear structures are normally formed. The internal auditory canal is normal in size. The mastoid air cells are normally pneumatized and well-aerated. The carotid canal and jugular bulb appear normal. No bony erosion or destruction is seen. Left: The external auditory canal appears normal. The tympanic membrane is not thickened. The middle ear cavity is well-aerated. The scutum is sharp. Prussak's space is clear. The tegmen is intact. The ossicular chain is intact. The facial nerve has a normal course. The inner ear structures are normally formed. The internal auditory canal is normal in size. The mastoid air cells are normally pneumatized and well-aerated. The carotid canal and jugular bulb appear normal. No bony erosion or destruction is seen. Additional findings: There is moderate paranasal sinus mucosal thickening. No acute intracranial abnormality is seen. CT/CT internal auditory canals BI IMPRESSION: 1. Bilateral mastoids and middle ear cavities are clear. No destructive changes are seen. The tegmen is intact bilaterally. 2. Incidentally noted moderate paranasal sinus mucosal thickening.
== END 2022-09-24 09:00 | disposition home or self-care (01) ==
LOC: HO.CT 08:59
PROVIDERS: Visit Provider Physician Assistant
DX: H92.12 Otorrhea, left ear (principal)
CPT/HCPCS: 70480

== ENCOUNTER 2022-09-29 12:59 | Outpatient (AMB) | payer OTHER, SELFPAY ==
--- NOTE | 2022-09-29 13:15 | A.OFFVIS_ITS ---
Intake Vital Signs 09/29/22 13:17 Height 5 ft Weight 163 lb 9.328 oz BMI 31.9 BP 112/72 Blood Pressure Location Lt brachial Position Sitting Pulse 86 Intake Visit Reasons: 3 month follow up Intake Note: Araceli presents in office as a est.patient for a 3month f/u for abdominal pain PT CC: pt reports having abdominal pain, bloating , constipation pt denies any other GI Issues Play Back Operator Required: No Accompanied by: Self / Same As Patient Allergies Fish Containing Products Allergy (Severe, Verified 09/29/22 14:11) throat closes nut - unspecified Allergy (Severe, Verified 09/29/22 14:11) Anaphylaxis peanut [Peanut] Allergy (Severe, Verified 09/29/22 14:11) ANAPHYLAXIS shellfish derived Allergy (Severe, Verified 09/29/22 14:11) Anaphylaxis kiwi Allergy (Intermediate, Verified 09/29/22 14:11) scratchy throat, swollen tongue peach Allergy (Intermediate, Verified 09/29/22 14:11) scratchy throat, swollen tongue HPI 3 month follow up HPI Details LAST VISIT: Abdominal pain Patient reports occasional abdominal bloating and pain. States that the pain usually happens after she eats. Patient states that no matter what she she gets this discomfort. Patient denies any nausea or vomiting. Denies any subjective fevers. Will do MRCP Constipation Will start patient on Linzess. Patient was on Linzess in the past, however she does not remember why she stopped taking it. We will have patient take Linzess every morning 1st thing when she wakes up. Patient will call us if this not going to be effective GERD (gastroesophageal reflux disease) Continue Nexium. Patient states that for the most part she feels like her symptoms are suppressed. I will see patient 3 months, sooner on as needed basis. Patient is agreeable to this and verbalizes understanding of instructions. She was given the opportunity to ask questions and all questions answered. ? Thank you for allowing me to participate in his care Plan Orders Orders MR MRCP 06/30/22 R10.9 Medications New linaclotide (Linzess) 145 mcg PO DAILY 30 caps 2RF Changed From docusate sodium 100 mg PO DAILY 30 days 30 caps 1RF K59.00 To docusate sodium (Colace) 100 mg PO DAILY 90 caps 3RF 90 days K59.00 Refilled hydrocortisone 2.5% (Anusol-HC) 1 appl PA QID PRN 30 grams 2RF hemorrhoids K64.9 Discontinued plecanatide Discontinued Reason: Doctor's Order 3 mg PO .daily 90 tabs 1RF TODAY'S VISIT Patient is here today for follow-up and to discuss MRCP results. Patient had no acute findings. Patient continues to be constipated and have postprandial abdominal bloating. Currently she is taking Linzess 145 mcg daily. Patient reports that sometimes she does not have a bowel movement for couple days. Patient reports that she is drinking plenty fluids. Patient is taking Nexium in her symptoms of acid reflux are suppressed for the most part. Patient denies melena, hematochezia, unintentional weight loss or ribbon like stools. Patient denies dyspepsia, dysphagia or odynophagia. Patient denies any nausea or vomiting. PFS Medical History Anxiety Asthma Conjunctivitis Diverticulosis Equivocal stress test HTN (hypertension) Hx of chest pain Hx of sigmoidoscopy Migraine Migraines Multiple food allergies Oral herpes simplex infection Otitis media PVD (peripheral vascular disease) Surgical History H/O colonoscopy H/O splenectomy History of bladder surgery History of cholecystectomy History of esophagogastroduodenoscopy (EGD) History of hysterectomy History of tubal ligation Hx of varicose vein ligation Family History Father Alzheimers disease Mother Asthma attack Brother Hypertension Hypercholesterolemia Depression Sister Heart disease Diabetes Daughter COPD (chronic obstructive pulmonary disease) Sister Uterine cancer Brother Throat cancer Other Mental health disorder Social History Household Members: Children and Other Housing: House Are you a primary home health care social worker to a significant other at home: No Do you presently have visiting nurse or other home services: No Alcohol intake: never Patient Tobacco Use Status: Former Tobacco user Quit Date: 2002 Tobacco use type: Cigarette e-Cigarette/Vaping Use: Never Used Second Hand Smoke Exposure: No service: No Current occupational status: disabled Cognitive needs: No Hearing needs: No Vision needs: Yes Review of Systems Const Denies weight gain and Denies weight loss ENT Reports no additional complaints, Denies dysphagia and Denies odynophagia Card Reports no additional complaints Resp Reports no additional complaints GI Reports abdominal pain, Denies belching, Denies melena, Reports bloating, Reports constipation, Denies dysphagia, Denies excessive flatus, Denies dyspepsia, Denies heartburn, Denies diarrhea, Reports loose stools (Occasional), Denies nausea, Denies odynophagia and Denies vomiting Reports no additional complaints Musc Reports no additional complaints Neuro Reports no additional complaints Psych Reports no additional complaints Endo Reports no additional complaints Physical Exam Vital Signs: Last Vital Signs Pulse 86 09/29/22 13:17 BP 112/72 09/29/22 13:17 BMI result Body Mass Index 31.9 Const General: healthy appearing, no acute distress and well developed Nutritional Appearance: obese Orientation/consciousness: patient oriented x3 HEENT Head: Yes normal to inspection, Yes normocephalic and Yes atraumatic Face and sinus: Yes normal facial exam Mouth: Normal oral and palatal mucosa present Throat: Yes posterior oropharynx normal, Yes tonsils normal and Yes uvula midline Eyes General: appearance normal, both eyes and all related structures Neck Neck: Yes normal visual inspection, Yes full ROM and Yes trachea midline Thyroid: Thyroid normal Resp Effort & Inspection: normal respiratory effort, able to speak in complete sentences, no tracheal deviation and symmetric chest movement Auscultation: clear to auscultation bilaterally Cardio Rate: regular rate Heart sounds: S1 normal heart sound present and S2 normal heart sound present GI Inspection: Yes normal to inspection, No distended and Yes obesity Palpation (GI): Soft to palpation, not firm, nontender and No hepatosplenomegaly present Auscultation: normal bowel sounds General: Yes no CVA tenderness Back/Spine/Pelvis Back: no CVA tenderness Skin General skin exam: elasticity normal, turgor normal and dry skin Neuro General: patient oriented x3 Psych Appearance: grossly normal Mental Status: mental status grossly normal Speech and movement: Normal speech and movement present Affect: normal affect Results Reviewed Results Reviewed: MRCP 08/05/2022 FINDINGS: LUNG BASES: Unremarkable.? ABDOMINAL AND PELVIC WALL:? Unremarkable.? LIVER AND BILIARY TREE: No intra or extrahepatic biliary duct dilatation or intraluminal filling defect to suggest choledocholithiasis. No loss of signal on opposed phase imaging to stress hepatic steatosis. The dome of the liver was excluded from the [id number]-[id number] on multiple axial sequences limiting evaluation.? GALLBLADDER: Status post cholecystectomy.? PANCREAS: Unremarkable.? SPLEEN: Spleen is surgically absent.? ADRENAL GLANDS: Unremarkable.? KIDNEYS AND URETERS: A 1.1 cm macroscopic fat-containing left renal lesion compatible with a small angiomyolipoma.? GASTROINTESTINAL TRACT: Unremarkable. VASCULAR: Unremarkable. LYMPH NODES/PERITONEUM: No lymphadenopathy. FREE FLUID: None. OSSEOUS STRUCTURES: Unremarkable.? MR/MR MRCP IMPRESSION: 1.? No intra or extrahepatic biliary duct dilatation or intraluminal filling defect to suggest choledocholithiasis. The dome of the liver was excluded from the [id number]-hp-[id number] on multiple axial sequences limiting evaluation. 2.? 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 ? Assessment & Plan Assessment & Plan (1) Constipation: Code(s): K59.00 - Constipation, unspecified Qualifiers: Constipation type: chronic idiopathic constipation Qualified Code(s): K59.04 - Chronic idiopathic constipation Plan: Will increase Linzess to 290 mcg daily. Patient can take Dulcolax tablets in the evening if she will continue to be constipated. Patient was encouraged to increase fluid intake and activity to promote better bowel motility (2) GERD (gastroesophageal reflux disease): Code(s): K21.9 - Gastro-esophageal reflux disease without esophagitis Qualifiers: Esophagitis bleeding: without hemorrhage Esophagitis presence: with esophagitis Qualified Code(s): K21.00 - Gastro-esophageal reflux disease with esophagitis, without bleeding Plan: Continue Nexium and sucralfate. Discussed with patient avoiding dietary triggers and late night snacking. Staying upright for minimal 3 hours after meals discussed with patient. I will see patient in 4 months, sooner on as needed basis. Patient is agreeable to this plan and verbalizes understanding of instructions. She was given opportunity to ask questions and questions answered. Thank you for to participate in her care Medications: New bisacodyl (Dulcolax (bisacodyl)) 10 mg (2 x 5 mg) PO BEDTIME 180 tabs 4RF linaclotide (Linzess) 290 mcg PO QAM 30 caps 4RF K59.00 - Constipation, unspecified Discontinued linaclotide Discontinued Reason: Doctor's Order 145 mcg PO DAILY 30 caps 2RF Coding Level of Care Code Est Pt Level 3 (00462) Diagnoses Constipation K59.04 Constipation type: chronic idiopathic constipation GERD (gastroesophageal reflux disease) K21.00 Esophagitis bleeding: without hemorrhage Esophagitis presence: with esophagitis Time Spent (min) 30 Comment 20 minutes spent with patient and additional 10 minutes spent reviewing her records
[2022-09-29 13:17] VITALS: BP 112/72; PULSE 86; BMI 31.9
== END 2022-09-29 13:58 | disposition home or self-care (01) ==
PROVIDERS: PCP Physician Assistant; Visit Provider Nurse Practitioner Family
DX: K59.04 Chronic idiopathic constipation (principal); K21.00 Gastro-esophageal reflux disease with esophagitis, without bleeding
CPT/HCPCS: 99213

== ENCOUNTER → 2022-09-29 12:59 | Outpatient (BNVA) | payer OTHER, SELFPAY | PROVIDERS: PCP Physician Assistant; Visit Provider Nurse Practitioner Family | DX: J45.20 Mild intermittent asthma, uncomplicated (principal); J84.9 Interstitial pulmonary disease, unspecified; Z91.09 Other allergy status, other than to drugs and biological substances; Z79.899 Other long term (current) drug therapy; K59.04 Chronic idiopathic constipation; K21.00 Gastro-esophageal reflux disease with esophagitis, without bleeding | CPT/HCPCS: 99202; 99212 ==

== ENCOUNTER 2022-09-29 14:08 | Outpatient (AMB) | payer OTHER, SELFPAY ==
--- NOTE | 2022-09-29 14:11 | MHC.OFFVIS ---
Intake Vital Signs 09/29/22 14:12 Height 5 ft Weight 163 lb 9.328 oz BMI 31.9 BP 124/72 Pulse 65 Pulse Oximetry (%) 98 Intake Visit Reasons: Chest pain Intake Note: pt has a slight cough, no smoking in over 15 yrs. she is currently on proair and flovent. she has family hx of asthma. Allergies Fish Containing Products Allergy (Severe, Verified 09/29/22 14:11) throat closes nut - unspecified Allergy (Severe, Verified 09/29/22 14:11) Anaphylaxis peanut [Peanut] Allergy (Severe, Verified 09/29/22 14:11) ANAPHYLAXIS shellfish derived Allergy (Severe, Verified 09/29/22 14:11) Anaphylaxis kiwi Allergy (Intermediate, Verified 09/29/22 14:11) scratchy throat, swollen tongue peach Allergy (Intermediate, Verified 09/29/22 14:11) scratchy throat, swollen tongue HPI Chest pain HPI Details 52-year-old lady, former approximately 10 pack-year smoker, quit 20 years prior, referred for evaluation of intermittent dyspnea and chest discomfort. Patient has had a recent normal cardiac workup. She does complain of environmental allergies and prior history of asthma. Patient states that she has not had a pulmonary function test or chest imaging recently. She does complain of Raynaud's phenomena. 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 Patient does have a dog as a pet. Patient also states that she has family history of asthma in her mother. [facility] Medical History Anxiety Asthma Conjunctivitis Diverticulosis Equivocal stress test HTN (hypertension) Hx of chest pain Hx of sigmoidoscopy Migraine Migraines Multiple food allergies Oral herpes simplex infection Otitis media PVD (peripheral vascular disease) Surgical History H/O colonoscopy H/O splenectomy History of bladder surgery History of cholecystectomy History of esophagogastroduodenoscopy (EGD) History of hysterectomy History of tubal ligation Hx of varicose vein ligation Family History Father Alzheimers disease Mother Asthma attack Brother Hypertension Hypercholesterolemia Depression Sister Heart disease Diabetes Daughter COPD (chronic obstructive pulmonary disease) Sister Uterine cancer Brother Throat cancer Other Mental health disorder Social History Household Members: Children and Other Housing: House Are you a primary insurance healthcare consultant to a significant other at home: No Do you presently have visiting nurse or other home services: No Alcohol intake: never Patient Tobacco Use Status: Former Tobacco user Quit Date: 2002 Tobacco use type: Cigarette e-Cigarette/Vaping Use: Never Used Second Hand Smoke Exposure: No service: No Current occupational status: disabled Cognitive needs: No Hearing needs: No Vision needs: Yes Review of Systems Const Denies daytime sleepiness, Denies excessive sweating, Denies fatigue, Denies fever(s), Denies lethargy, Denies malaise, Denies night sweats, Denies snoring and Denies weight loss Eyes Denies blurry vision and Denies itchy eyes ENT Denies nasal congestion, Denies post nasal drip, Denies sinus pain, Denies sinus pressure and Denies other ( Thrush) Card Denies chest pain, Denies pedal edema, Denies dyspnea, Reports dyspnea on exertion, Denies orthopnea and Denies paroxysmal nocturnal dyspnea Resp Denies cough, Denies hemoptysis, Denies excessive phlegm production, Denies dyspnea, Reports dyspnea on exertion, Denies snoring and Denies wheezing GI Denies abdominal pain and Denies heartburn Musc Denies myalgias, Denies arthralgias and Denies joint swelling Skin/Breast Denies rash Neuro Denies memory loss and Denies seizure-like activity Psych Denies abnormal sleep pattern, Denies anxiety and Denies memory loss Endo Denies excessive sweating, Denies fatigue and Denies heat intolerance Jesus/Lymph Denies easy bruising Aller/Immun Denies itchy eyes, Denies seasonal rhinorrhea and Denies wheezing Physical Exam Vital Signs: Last Vital Signs Pulse 65 09/29/22 14:12 BP 124/72 09/29/22 14:12 Pulse Ox 98 09/29/22 14:12 BMI result Body Mass Index 31.9 Const General: no acute distress and alert Nutritional Appearance: not obese Orientation/consciousness: Other orientation findings ( oriented) HEENT Head: Yes atraumatic Eyes General: appearance normal, both eyes and all related structures Sclerae: sclerae normal EOM: EOMs intact bilaterally Neck Neck: Yes supple Lymphatic: no lymphadenopathy noted Resp Effort & Inspection: normal respiratory effort and no use of accessory muscles Auscultation: clear to auscultation bilaterally Cardio Rate: regular rate Rhythm: regular rhythm Heart sounds: no gallops, no murmurs and no rubs Skin General skin exam: other ( warm) Extrem General: No clubbing, No cyanosis and No edema Assessment & Plan Assessment & Plan (1) Asthma: Code(s): J45.909 - Unspecified asthma, uncomplicated Qualifiers: Asthma severity: mild Asthma persistence: intermittent Asthma complication type: uncomplicated Qualified Code(s): J45.20 - Mild intermittent asthma, uncomplicated Plan: Likely underlying asthma of unclear severity. Continue current regimen of Flovent and albuterol MDI. Will obtain full PFT. (2) Environmental allergies: Code(s): Z91.09 - Other allergy status, other than to drugs and biological substances Plan: Will obtain RAST, IgE level, and CBC with differential for further evaluation. (3) Interstitial lung disease: Code(s): J84.9 - Interstitial pulmonary disease, unspecified Plan: Will obtain rheumatologic workup and CT chest for further evaluation. Coding Level of Care Code New Pt Level 4 (44754) Diagnoses Asthma J45.20 Asthma severity: mild Asthma persistence: intermittent Asthma complication type: uncomplicated Environmental allergies Z91.09 Interstitial lung disease J84.9
[2022-09-29 14:12] VITALS: BP 124/72; PULSE 65; O2SAT 98; BMI 31.9
== END 2022-09-29 14:41 | disposition home or self-care (01) ==
PROVIDERS: PCP Physician Assistant; Visit Provider Internal Medicine Pulmonary Disease
DX: J45.20 Mild intermittent asthma, uncomplicated (principal); Z91.09 Other allergy status, other than to drugs and biological substances; J84.9 Interstitial pulmonary disease, unspecified
CPT/HCPCS: 99204

== ENCOUNTER 2022-10-09 14:18 | Outpatient (REF) | payer OTHER, SELFPAY ==
--- NOTE | 2022-10-09 15:55 | PFT_ITS ---
FLOWS: 1. FEV1 109% of predicted at 2.55 L. 2. FVC 116% of predicted at 3.41 L. 3. FEV1 to FVC ratio of 0.75. 4. No bronchodilator response. Patient was unable to perform lung volume maneuvers. Diffusion capacity is mildly decreased, diffusion capacity corrects to normal after adjustment for alveolar ventilation. IMPRESSION: No obstructive ventilatory defect. No bronchodilator response. Patient was unable to perform lung volume maneuvers. MD BENJAMIN Nixon/MODL / [id number]
[2022-10-09 17:54] LABS: Basophils Absolute Auto 0.1 X10*3/uL (0.0-0.2); Basophils Percent Auto 1.1 % (0-2); Eosinophils Absolute Auto 0.5 X10*3/uL (0.0-0.4); Eosinophils Percent Auto 5.6 % (0-4); Hematocrit 42.8 % (37.0-47.0); Hemoglobin 13.7 g/dl (12.0-16.0); Imm Gran Abs Auto 0.02 X10*3/uL (0.00-0.03); Imm Gran Pct Auto 0.2 % (0.0-0.4); Lymphocytes Absolute Auto 5.2 X10*3/uL (1.2-4.9); Lymphocytes Percent Auto 55.3 % (20-40); MANUAL DIFF FLAG SCAN; Mean Corpuscular Volume 87.3 fL (80.0-98.0); Mean Platelet Volume 11.1 fL (9.4-12.3); Monocytes Absolute Auto 0.8 X10*3/uL (0.1-1.2); Monocytes Percent Auto 8.1 % (2-11); Neutrophils Absolute Auto 2.8 x10*3/uL (2.0-8.3); Neutrophils Percent Auto 29.7 % (45-73); Platelet Count 275 X10*3/uL (160-400); Red Cell Distribution Width 13.7 % (11.0-16.0); SCAN SMEAR FLAG 1; White Blood Count 9.5 X10*3/uL (4.8-10.8)
[2022-10-09 18:14] LABS: Rheumatoid Factor < 13.0 IU/mL (<15.0)
[2022-10-09 18:33] LABS: SLIDE REVIEW VERIFIED
[2022-10-13 16:53] LABS: Anti DNA DS Antibody 1 IU/mL; JO 1 Antibody <1.0 NEG AI (<1.0 NEG); Myeloperoxidase Antibody <1.0 AI; Proteinase 3 PR3 Antibodies <1.0 AI
[2022-10-16 08:29] LABS: Anti Nuclear Antibody Screen NEGATIVE (NEGATIVE)
== END 2022-10-09 14:19 | disposition home or self-care (01) ==
LOC: HO.RESP 14:18
PROVIDERS: PCP Physician Assistant; Visit Provider Internal Medicine Pulmonary Disease
DX: J84.9 Interstitial pulmonary disease, unspecified (principal); Z91.09 Other allergy status, other than to drugs and biological substances
CPT/HCPCS: 36415; 82785; 85025; 86003; 86021; 86038; 86225; 86235; 86431; 94010; 94727; 94729

== ENCOUNTER → 2022-10-09 15:55 | Outpatient (BNV) | payer OTHER, SELFPAY | PROVIDERS: PCP Physician Assistant; Visit Provider Internal Medicine Pulmonary Disease | DX: J45.909 Unspecified asthma, uncomplicated (principal) | CPT/HCPCS: 94060; 94727; 94729 ==

== ENCOUNTER 2022-11-04 12:37 | Outpatient (REF) | payer OTHER, SELFPAY ==
--- NOTE | ~2022-11-04 | CT_ITS ---
EXAMINATION: CT CHEST WITHOUT CONTRAST CLINICAL INFORMATION: Interstitial lung disease. COMPARISON: Chest radiograph dated 10/08/2012. TECHNIQUE: Multidetector volumetric CT imaging of the chest was done. Axial MIP volume rendering provided. Sagittal and coronal reformatted images were obtained. This CT examination was performed using dose optimization techniques as appropriate, variously including the following: *Automated exposure control *Adjustment of mA and/or kV according to patient size (this includes techniques or standardized protocols for targeted exams where dose is matched to indication/reason for exam; i.e. 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 LUNGS: The lungs are clear with no evidence of inflammation or nodules. There is multi-focal minimal nonspecific bilateral posterior pleural thickening MEDIASTINUM: The mediastinum is normal. CORONARY ARTERY CALCIFICATION: None visualized on this study. PLEURA: There is no pleural effusion. No pleural mass or thickening. AXILLA: No lymphadenopathy. UPPER ABDOMEN: The gallbladder is surgically absent. There are a few benign, calcified hepatic granulomas. The adrenal glands are unremarkable. OSSEOUS STRUCTURES: Unremarkable examination. No mass, nodule or infiltrate is seen. There is no groundglass opacity. No interstitial lung disease is noted. There is no or thoracic lymphadenopathy or pleural effusion. No aggressive osseous lesion is seen. CT/CT chest wo IV con IMPRESSION: Unremarkable examination. Fleischner guidelines were followed.
== END 2022-11-04 12:38 | disposition home or self-care (01) ==
LOC: HO.CT 12:37
PROVIDERS: Visit Provider Internal Medicine Pulmonary Disease
DX: J84.9 Interstitial pulmonary disease, unspecified (principal)
CPT/HCPCS: 71250

== ENCOUNTER 2022-11-13 13:31 | Outpatient (AMB) | payer OTHER, SELFPAY ==
[2022-11-13 13:34] VITALS: BP 111/62; PULSE 64; O2SAT 97; BMI 32.5
--- NOTE | 2022-11-13 13:34 | MHC.OFFVIS ---
Intake Vital Signs 11/13/22 13:34 Height 5 ft Weight 166 lb 7.184 oz BMI 32.5 BP 111/62 Blood Pressure Location Rt brachial Position Sitting Pulse 64 Pulse Source Pulse Oximeter Pulse Oximetry (%) 97 Oxygen Delivery Method Room Air Intake Visit Reasons: Asthma Allergies Fish Containing Products Allergy (Severe, Verified 11/13/22 13:39) throat closes nut - unspecified Allergy (Severe, Verified 11/13/22 13:39) Anaphylaxis peanut [Peanut] Allergy (Severe, Verified 11/13/22 13:39) ANAPHYLAXIS shellfish derived Allergy (Severe, Verified 11/13/22 13:39) Anaphylaxis kiwi Allergy (Intermediate, Verified 11/13/22 13:39) scratchy throat, swollen tongue peach Allergy (Intermediate, Verified 11/13/22 13:39) scratchy throat, swollen tongue HPI Asthma HPI Details 52-year-old lady, former approximately 10 pack-year smoker, quit 20 years prior, followed for severe persistent allergic asthma. After the last office visit patient had had CT chest, pulmonary function test, and immunologic workup that showed essentially a significant allergic component to her symptoms. She denies recent acute exacerbations. [facility] Medical History (Updated 11/13/22 @ 13:52 by Femi Earl MD) Anxiety Asthma Conjunctivitis Diverticulosis Equivocal stress test HTN (hypertension) Hx of chest pain Hx of sigmoidoscopy Migraine Migraines Multiple food allergies Oral herpes simplex infection Otitis media PVD (peripheral vascular disease) Surgical History H/O colonoscopy H/O splenectomy History of bladder surgery History of cholecystectomy History of esophagogastroduodenoscopy (EGD) History of hysterectomy History of tubal ligation Hx of varicose vein ligation Family History Father Alzheimers disease Mother Asthma attack Brother Hypertension Hypercholesterolemia Depression Sister Heart disease Diabetes Daughter COPD (chronic obstructive pulmonary disease) Sister Uterine cancer Brother Throat cancer Other Mental health disorder Social History Household Members: Children and Other Housing: House Are you a primary health care marketing specialist to a significant other at home: No Do you presently have visiting nurse or other home services: No Alcohol intake: never Patient Tobacco Use Status: Former Tobacco user Quit Date: 2002 Tobacco use type: Cigarette e-Cigarette/Vaping Use: Never Used Second Hand Smoke Exposure: No service: No Current occupational status: disabled Cognitive needs: No Hearing needs: No Vision needs: Yes Review of Systems Const Denies daytime sleepiness, Denies excessive sweating, Denies fatigue, Denies fever(s), Denies lethargy, Denies malaise, Denies night sweats, Denies snoring and Denies weight loss Eyes Denies blurry vision and Denies itchy eyes ENT Denies nasal congestion, Denies post nasal drip, Denies sinus pain, Denies sinus pressure and Denies other ( Thrush) Card Denies chest pain, Denies pedal edema, Denies dyspnea, Denies orthopnea and Denies paroxysmal nocturnal dyspnea Resp Denies cough, Denies hemoptysis, Denies excessive phlegm production, Denies dyspnea, Denies snoring and Denies wheezing GI Denies abdominal pain and Denies heartburn Musc Denies myalgias, Denies arthralgias and Denies joint swelling Skin/Breast Denies rash Neuro Denies memory loss and Denies seizure-like activity Psych Denies abnormal sleep pattern, Denies anxiety and Denies memory loss Endo Denies excessive sweating, Denies fatigue and Denies heat intolerance Jesus/Lymph Denies easy bruising Aller/Immun Denies itchy eyes, Denies seasonal rhinorrhea and Denies wheezing Physical Exam Vital Signs: Last Vital Signs Pulse 64 11/13/22 13:34 BP 111/62 11/13/22 13:34 Pulse Ox 97 11/13/22 13:34 Oxygen Delivery Method Room Air 11/13/22 13:34 BMI result Body Mass Index 32.5 Const General: no acute distress and alert Nutritional Appearance: not obese Orientation/consciousness: Other orientation findings ( oriented) HEENT Head: Yes atraumatic Eyes General: appearance normal, both eyes and all related structures Sclerae: sclerae normal EOM: EOMs intact bilaterally Neck Neck: Yes supple Lymphatic: no lymphadenopathy noted Resp Effort & Inspection: normal respiratory effort and no use of accessory muscles Auscultation: clear to auscultation bilaterally Cardio Rate: regular rate Rhythm: regular rhythm Heart sounds: no gallops, no murmurs and no rubs Skin General skin exam: other ( warm) Extrem General: No clubbing, No cyanosis and No edema Assessment & Plan Assessment & Plan (1) Asthma: Code(s): J45.909 - Unspecified asthma, uncomplicated Qualifiers: Asthma severity: mild Asthma persistence: intermittent Asthma complication type: uncomplicated Qualified Code(s): J45.20 - Mild intermittent asthma, uncomplicated Plan: Suboptimally controlled on Flovent and albuterol MDI. Immunologic workup shows significant allergic component. Will request Xolair approval. (2) Environmental allergies: Code(s): Z91.09 - Other allergy status, other than to drugs and biological substances Plan: Expect to improve with Xolair. Coding Level of Care Code Est Pt Level 4 (25767) Diagnoses Asthma J45.20 Asthma severity: mild Asthma persistence: intermittent Asthma complication type: uncomplicated Environmental allergies Z91.09
== END 2022-11-13 13:52 | disposition home or self-care (01) ==
PROVIDERS: PCP Physician Assistant; Visit Provider Internal Medicine Pulmonary Disease
DX: J45.20 Mild intermittent asthma, uncomplicated (principal); Z91.09 Other allergy status, other than to drugs and biological substances
CPT/HCPCS: 99214

== ENCOUNTER → 2022-11-13 13:31 | Outpatient (BNVA) | payer OTHER, SELFPAY | PROVIDERS: PCP Physician Assistant; Visit Provider Internal Medicine Pulmonary Disease | DX: J45.20 Mild intermittent asthma, uncomplicated (principal); Z79.899 Other long term (current) drug therapy; Z91.09 Other allergy status, other than to drugs and biological substances | CPT/HCPCS: 99212 ==

== ENCOUNTER 2022-11-27 10:10 | Outpatient (AMB) | payer OTHER, SELFPAY ==
--- NOTE | 2022-11-27 10:13 | A.OFFVIS_ITS ---
Intake Intake Visit Reasons: PT request sooner appt Intake Note: Patient is present for Follow up/Medical Concern Patient reports no change in medication Patient Complaints: Bloating (With No relief), difficulty Swallowing (Drinking/eating) Patient States: Had endoscopy a year ago or more (Does not remember if it was more than a year ago) she states that she is concerned that her esophagus is closing. She states that she has a hard time eating food and drinking water. While she drinks she is in pain. Her meals mostly consist of Smoothies. She also states that she has been very bloated and thinks that her medication is not working fully. She did inform that she does double up on her medication but still feels bloated after. Allergies Fish Containing Products Allergy (Severe, Verified 11/27/22 10:20) throat closes nut - unspecified Allergy (Severe, Verified 11/27/22 10:20) Anaphylaxis peanut [Peanut] Allergy (Severe, Verified 11/27/22 10:20) ANAPHYLAXIS shellfish derived Allergy (Severe, Verified 11/27/22 10:20) Anaphylaxis kiwi Allergy (Intermediate, Verified 11/27/22 10:20) scratchy throat, swollen tongue peach Allergy (Intermediate, Verified 11/27/22 10:20) scratchy throat, swollen tongue HPI PT request sooner appt HPI Details LAST VISIT Constipation Will increase Linzess to 290 mcg daily. Patient can take Dulcolax tablets in the evening if she will continue to be constipated. Patient was encouraged to increase fluid intake and activity to promote better bowel motility GERD (gastroesophageal reflux disease) Continue Nexium and sucralfate. Discussed with patient avoiding dietary triggers and late night snacking. Staying upright for minimal 3 hours after meals discussed with patient. I will see patient in 4 months, sooner on as needed basis. Patient is agreeable to this plan and verbalizes understanding of instructions. She was given opportunity to ask questions and questions answered. ? TODAY'S VISIT: Patient is here today requesting to be seen earlier. Patient reports that she has been having trouble swallowing both liquids and solids. Patient continues to have postprandial abdominal bloating. Patient states that she takes Nexium and sucralfate, however she feels like she still gets epigastric discomfort. Patient reports that she is eating small amounts. Patient had gastric emptying study done in 2020 and that was normal. Multiple CT scans and MRIs and lasts upper endoscopy was done in November of 2021. Patient was feeling better with acid reflux, however new symptoms now with dysphagia. Mild gastritis and esophagitis found. However eosinophilic count was low. 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 [facility] Medical History (Updated 11/13/22 @ 13:52 by Femi Earl MD) Oral herpes simplex infection Hx of sigmoidoscopy Anxiety Migraines Multiple food allergies Migraine Conjunctivitis Otitis media Diverticulosis Hx of chest pain Asthma PVD (peripheral vascular disease) HTN (hypertension) Equivocal stress test Surgical History History of esophagogastroduodenoscopy (EGD) H/O colonoscopy Hx of varicose vein ligation History of bladder surgery History of hysterectomy History of tubal ligation H/O splenectomy History of cholecystectomy Family History Father Alzheimers disease Mother Asthma attack Brother Hypertension Hypercholesterolemia Depression Sister Heart disease Diabetes Daughter COPD (chronic obstructive pulmonary disease) Sister Uterine cancer Brother Throat cancer Other Mental health disorder Social History Household Members: Children and Other Housing: House Are you a primary menagerie caretaker to a significant other at home: No Do you presently have visiting nurse or other home services: No Alcohol intake: never Patient Tobacco Use Status: Former Tobacco user Quit Date: 2002 Tobacco use type: Cigarette e-Cigarette/Vaping Use: Never Used Second Hand Smoke Exposure: No service: No Current occupational status: disabled Cognitive needs: No Hearing needs: No Vision needs: Yes Review of Systems Const Denies weight gain and Denies weight loss ENT Reports no additional complaints, Reports dysphagia and Denies odynophagia Card Reports no additional complaints Resp Reports no additional complaints GI Denies abdominal pain, Denies belching, Denies melena, Reports bloating, Denies change in bowel habits, Reports constipation, Reports dysphagia, Denies excessive flatus, Reports dyspepsia, Reports heartburn, Denies diarrhea, Denies loose stools, Reports nausea, Denies odynophagia and Denies vomiting Reports no additional complaints Musc Reports no additional complaints Neuro Reports no additional complaints Psych Reports no additional complaints Endo Reports no additional complaints Physical Exam Const General: healthy appearing, no acute distress and well developed Nutritional Appearance: well nourished Orientation/consciousness: patient oriented x3 HEENT Head: Yes normal to inspection, Yes normocephalic and Yes atraumatic Face and sinus: Yes normal facial exam Mouth: Normal oral and palatal mucosa present Throat: Yes posterior oropharynx normal, Yes tonsils normal and Yes uvula midline Eyes General: appearance normal, both eyes and all related structures Neck Neck: Yes normal visual inspection, Yes full ROM and Yes trachea midline Thyroid: Thyroid normal Resp Effort & Inspection: normal respiratory effort, able to speak in complete sentences, no tracheal deviation and symmetric chest movement Auscultation: clear to auscultation bilaterally Cardio Rate: regular rate Heart sounds: S1 normal heart sound present and S2 normal heart sound present GI Inspection: Yes normal to inspection and No distended Palpation (GI): Soft to palpation, not firm, nontender and No hepatosplenomegaly present Auscultation: normal bowel sounds General: Yes no CVA tenderness Back/Spine/Pelvis Back: no CVA tenderness Skin General skin exam: elasticity normal, turgor normal and dry skin Neuro General: patient oriented x3 Psych Appearance: grossly normal Mental Status: mental status grossly normal Speech and movement: Normal speech and movement present Assessment & Plan Assessment & Plan (1) Constipation: Code(s): K59.00 - Constipation, unspecified Qualifiers: Constipation type: chronic idiopathic constipation Qualified Code(s): K59.04 - Chronic idiopathic constipation Plan: Will stop Linzess and start patient on Motegrity. Patient was encouraged to increase fluid intake and activity to promote better bowel motility. (2) GERD (gastroesophageal reflux disease): Code(s): K21.9 - Gastro-esophageal reflux disease without esophagitis Qualifiers: Esophagitis bleeding: without hemorrhage Esophagitis presence: with esophagitis Qualified Code(s): K21.00 - Gastro-esophageal reflux disease with esophagitis, without bleeding Plan: Patient will stop esomeprazole and start lansoprazole. Discussed with patient avoiding dietary triggers in late night snacking. Staying upright for minimal 3 hours after meals discussed with patient (3) Dysphagia: Code(s): R13.10 - Dysphagia, unspecified Qualifiers: Dysphagia type: unspecified Qualified Code(s): R13.10 - Dysphagia, unspecified Plan: Patient reports dysphagia. States that she is having trouble swallowing even liquids. Will stop Nexium and start lansoprazole. Patient will be sent for upper endoscopy to rule out Schatzki ring, esophagitis, gastritis. I will see her after the procedure, sooner on as needed basis. Patient is agreeable to this plan and verbalizes understanding of instructions. She was given the opportunity to ask questions and all questions answered. Thank you for allowing me to participate in her care Medications: New prucalopride (Motegrity) 2 mg PO DAILY 90 tabs 2RF K59.04 - Chronic idiopathic constipation lansoprazole 30 mg PO DAILY 30 caps 3RF K21.9 - Gastro-esophageal reflux disease without esophagitis nortriptyline 10 mg PO BEDTIME 30 caps 3RF Discontinued esomeprazole magnesium Discontinued Reason: Doctor's Order 20 mg PO DAILY 90 caps 2RF linaclotide Discontinued Reason: Doctor's Order 290 mcg PO QAM 30 caps 4RF K59.00 - Constipation, unspecified Coding Level of Care Code Est Pt Level 4 (65606) Diagnoses Chronic idiopathic constipation K59.04 Constipation type: chronic idiopathic constipation Gastroesophageal reflux disease with esophagitis without hemorrhage K21.00 Esophagitis bleeding: without hemorrhage Esophagitis presence: with esophagitis Dysphagia, unspecified type R13.10 Dysphagia type: unspecified Time Spent (min) 35 Comment 20 minutes spent with patient and additional 15 minutes spent reviewing her records
== END 2022-11-27 11:39 | disposition home or self-care (01) ==
PROVIDERS: PCP Physician Assistant; Visit Provider Nurse Practitioner Family
DX: K59.04 Chronic idiopathic constipation (principal); K21.00 Gastro-esophageal reflux disease with esophagitis, without bleeding; R13.10 Dysphagia, unspecified
CPT/HCPCS: 99214

== ENCOUNTER → 2022-11-27 10:10 | Outpatient (BNVA) | payer OTHER, SELFPAY | PROVIDERS: PCP Physician Assistant; Visit Provider Nurse Practitioner Family | DX: K59.04 Chronic idiopathic constipation (principal); K21.00 Gastro-esophageal reflux disease with esophagitis, without bleeding; R13.10 Dysphagia, unspecified | CPT/HCPCS: 99212 ==

== ENCOUNTER 2022-12-31 10:09 | Outpatient (REF) | payer OTHER, SELFPAY | END 2022-12-31 10:10 | disposition home or self-care (01) | LOC: HO.MDS 10:09 | PROVIDERS: Visit Provider Internal Medicine Pulmonary Disease | DX: J45.50 Severe persistent asthma, uncomplicated (principal) | CPT/HCPCS: 96372; J2357 ==

== ENCOUNTER 2023-01-05 13:01 | Outpatient (AMB) | payer OTHER, SELFPAY ==
[2023-01-05 13:03] VITALS: BP 128/78; PULSE 80; O2SAT 98; BMI 33.4
--- NOTE | 2023-01-05 13:03 | A.OFFVIS_ITS ---
Intake Vital Signs 01/05/23 13:03 Height 5 ft Weight 170 lb 13.732 oz BMI 33.4 BP 128/78 Blood Pressure Location Lt brachial Position Sitting Pulse 80 Pulse Source Doppler Pulse Oximetry (%) 98 Oxygen Delivery Method Room Air Intake Visit Reasons: Asthma Allergies Fish Containing Products Allergy (Severe, Verified 01/05/23 13:07) throat closes nut - unspecified Allergy (Severe, Verified 01/05/23 13:07) Anaphylaxis peanut [Peanut] Allergy (Severe, Verified 01/05/23 13:07) ANAPHYLAXIS shellfish derived Allergy (Severe, Verified 01/05/23 13:07) Anaphylaxis kiwi Allergy (Intermediate, Verified 01/05/23 13:07) scratchy throat, swollen tongue peach Allergy (Intermediate, Verified 01/05/23 13:07) scratchy throat, swollen tongue HPI Asthma HPI Details 53-year-old lady, former approximately 1 0 pack-year smoker, quit 20 years prior, followed for severe persistent allergic asthma. After the last office visit patient has been started on Xolair with improved symptoms. She denies any recent exacerbations. She continues on Flovent and albuterol MDI. [facility] Medical History (Updated 11/13/22 @ 13:52 by Femi Earl MD) Oral herpes simplex infection Hx of sigmoidoscopy Anxiety Migraines Multiple food allergies Migraine Conjunctivitis Otitis media Diverticulosis Hx of chest pain Asthma PVD (peripheral vascular disease) HTN (hypertension) Equivocal stress test Surgical History History of esophagogastroduodenoscopy (EGD) H/O colonoscopy Hx of varicose vein ligation History of bladder surgery History of hysterectomy History of tubal ligation H/O splenectomy History of cholecystectomy Family History Father Alzheimers disease Mother Asthma attack Brother Hypertension Hypercholesterolemia Depression Sister Heart disease Diabetes Daughter COPD (chronic obstructive pulmonary disease) Sister Uterine cancer Brother Throat cancer Other Mental health disorder Social History (Updated 01/05/23 @ 13:09 by NAILA Jackson) Household Members: Children and Other Housing: House Are you a primary medication care manager to a significant other at home: No Do you presently have visiting nurse or other home services: No Alcohol intake: never Patient Tobacco Use Status: Former Tobacco user Quit Date: 2002 Tobacco use type: Cigarette Cigarettes Per Day: 2 e-Cigarette/Vaping Use: Never Used Second Hand Smoke Exposure: No service: No Current occupational status: disabled Cognitive needs: No Hearing needs: No Vision needs: Yes Review of Systems Const Denies daytime sleepiness, Denies excessive sweating, Denies fatigue, Denies fever(s), Denies lethargy, Denies malaise, Denies night sweats, Denies snoring and Denies weight loss Eyes Denies blurry vision and Denies itchy eyes ENT Denies nasal congestion, Denies post nasal drip, Denies sinus pain, Denies sinus pressure and Denies other ( Thrush) Card Denies chest pain, Denies pedal edema, Denies dyspnea, Denies orthopnea and Denies paroxysmal nocturnal dyspnea Resp Denies cough, Denies hemoptysis, Denies excessive phlegm production, Denies dyspnea, Denies snoring and Denies wheezing GI Denies abdominal pain and Denies heartburn Musc Denies myalgias, Denies arthralgias and Denies joint swelling Skin/Breast Denies rash Neuro Denies memory loss and Denies seizure-like activity Psych Denies abnormal sleep pattern, Denies anxiety and Denies memory loss Endo Denies excessive sweating, Denies fatigue and Denies heat intolerance Jesus/Lymph Denies easy bruising Aller/Immun Denies itchy eyes, Denies seasonal rhinorrhea and Denies wheezing Physical Exam Vital Signs: Last Vital Signs Pulse 80 01/05/23 13:03 BP 128/78 01/05/23 13:03 Pulse Ox 98 01/05/23 13:03 Oxygen Delivery Method Room Air 01/05/23 13:03 BMI result Body Mass Index 33.4 Const General: no acute distress and alert Nutritional Appearance: not obese Orientation/consciousness: Other orientation findings ( oriented) HEENT Head: Yes atraumatic Eyes General: appearance normal, both eyes and all related structures Sclerae: sclerae normal EOM: EOMs intact bilaterally Neck Neck: Yes supple Lymphatic: no lymphadenopathy noted Resp Effort & Inspection: normal respiratory effort and no use of accessory muscles Auscultation: clear to auscultation bilaterally Cardio Rate: regular rate Rhythm: regular rhythm Heart sounds: no gallops, no murmurs and no rubs Skin General skin exam: other ( warm) Extrem General: No clubbing, No cyanosis and No edema Assessment & Plan Assessment & Plan (1) Asthma: Code(s): J45.909 - Unspecified asthma, uncomplicated Qualifiers: Asthma severity: mild Asthma persistence: intermittent Asthma complication type: uncomplicated Qualified Code(s): J45.20 - Mild intermittent asthma, uncomplicated Plan: Improving control on Xolair, Flovent, and albuterol MDI. Continue current regimen. (2) Environmental allergies: Code(s): Z91.09 - Other allergy status, other than to drugs and biological substances Plan: Improving control on Xolair and Singulair. Continue current regimen. Coding Level of Care Code Est Pt Level 4 (38407) Diagnoses Mild intermittent asthma without complication J45.20 Asthma severity: mild Asthma persistence: intermittent Asthma complication type: uncomplicated Environmental allergies Z91.09
== END 2023-01-05 13:21 | disposition home or self-care (01) ==
PROVIDERS: PCP Physician Assistant; Visit Provider Internal Medicine Pulmonary Disease
DX: J45.20 Mild intermittent asthma, uncomplicated (principal); Z91.09 Other allergy status, other than to drugs and biological substances
CPT/HCPCS: 99214

== ENCOUNTER → 2023-01-05 13:01 | Outpatient (BNVA) | payer OTHER, SELFPAY | PROVIDERS: PCP Physician Assistant; Visit Provider Internal Medicine Pulmonary Disease | DX: J45.20 Mild intermittent asthma, uncomplicated (principal); Z91.09 Other allergy status, other than to drugs and biological substances | CPT/HCPCS: 99212 ==

== ENCOUNTER 2023-01-14 12:37 | Outpatient (REF) | payer OTHER, SELFPAY | END 2023-01-14 12:38 | disposition home or self-care (01) | LOC: HO.MDS 12:37 | PROVIDERS: PCP Physician Assistant; Visit Provider Internal Medicine Pulmonary Disease | DX: J45.50 Severe persistent asthma, uncomplicated (principal) | CPT/HCPCS: 96372; J2357 ==

== ENCOUNTER 2023-02-02 11:55 | Outpatient (AMB) | payer OTHER, SELFPAY ==
[2023-02-02 12:01] VITALS: BP 132/69; PULSE 73; BMI 33.8
--- NOTE | 2023-02-02 12:01 | A.OFFVIS_ITS ---
Intake Vital Signs 02/02/23 12:01 Height 5 ft Weight 172 lb 13.478 oz BMI 33.8 BP 132/69 Blood Pressure Location Rt brachial Position Sitting Pulse 73 Pulse Source Pulse Oximeter Intake Visit Reasons: 4 MONTH FOLLOW UP Intake Note: Pt presents to the office today for a 4 month follow up. Pt states she still has constipation and the medications are barely helping her. Pt states she rarely has normal bowel movements and always feels bloated. Pt states she does get nauseous occasionally but denies vomiting. Allergies Fish Containing Products Allergy (Severe, Verified 02/02/23 12:03) throat closes nut - unspecified Allergy (Severe, Verified 02/02/23 12:03) Anaphylaxis peanut [Peanut] Allergy (Severe, Verified 02/02/23 12:03) ANAPHYLAXIS shellfish derived Allergy (Severe, Verified 02/02/23 12:03) Anaphylaxis kiwi Allergy (Intermediate, Verified 02/02/23 12:03) scratchy throat, swollen tongue peach Allergy (Intermediate, Verified 02/02/23 12:03) scratchy throat, swollen tongue HPI 4 MONTH FOLLOW UP HPI Details LAST VISIT: Constipation Will stop Linzess and start patient on Motegrity. Patient was encouraged to increase fluid intake and activity to promote better bowel motility. GERD (gastroesophageal reflux disease) Patient will stop esomeprazole and start lansoprazole. Discussed with patient avoiding dietary triggers in late night snacking. Staying upright for minimal 3 hours after meals discussed with patient Dysphagia Patient reports dysphagia. States that she is having trouble swallowing even liquids. Will stop Nexium and start lansoprazole. Patient will be sent for upper endoscopy to rule out Schatzki ring, esophagitis, gastritis. I will see her after the procedure, sooner on as needed basis. Patient is agreeable to this plan and verbalizes understanding of instructions. She was given the opportunity to ask questions and all questions answered. ? Thank you for allowing me to participate in her care Plan Medications New prucalopride (Motegrity) 2 mg PO DAILY 90 tabs 2RF K59.04 lansoprazole 30 mg PO DAILY 30 caps 3RF K21.9 nortriptyline 10 mg PO BEDTIME 30 caps 3RF Discontinued esomeprazole magnesium Discontinued Reason: Doctor's Order 20 mg PO DAILY 90 caps 2RF linaclotide Discontinued Reason: Doctor's Order 290 mcg PO QAM 30 caps 4RF K59.00 TODAY'S VISIT Patient is here today for follow-up. Patient reports that she has been continue to feel very constipated the patient reports that she might have a bowel movement once a week or so. Currently taking Motegrity and feels like it is not helping. Patient denies any melena, hematochezia, like stools. Patient reports that her acid reflux is under control for the most part, however occasionally patient will still have dyspepsia. Patient is using sucralfate twice a day. Patient is taking lansoprazole every morning half an hour before breakfast. Patient states that she believes Creon might be helping her with bloating. Patient reports occasional nausea without vomiting. Occasional postprandial abdominal cramping. Patient reports that bloating and cramping is worse if she does not have a bowel movement for couple days. Patient reports that she is drinking plenty fluids. [facility] Medical History Oral herpes simplex infection Hx of sigmoidoscopy Anxiety Migraines Multiple food allergies Migraine Conjunctivitis Otitis media Diverticulosis Hx of chest pain Asthma PVD (peripheral vascular disease) HTN (hypertension) Equivocal stress test Surgical History History of esophagogastroduodenoscopy (EGD) H/O colonoscopy Hx of varicose vein ligation History of bladder surgery History of hysterectomy History of tubal ligation H/O splenectomy History of cholecystectomy Family History Father Alzheimers disease Mother Asthma attack Brother Hypertension Hypercholesterolemia Depression Sister Heart disease Diabetes Daughter COPD (chronic obstructive pulmonary disease) Sister Uterine cancer Brother Throat cancer Other Mental health disorder (Updated 02/02/23 @ 12:06 by Natalie Marinelli MA) Household Members: Children and Other Housing: House Are you a primary childcare administrator to a significant other at home: No Do you presently have visiting nurse or other home services: No Alcohol intake: never Patient Tobacco Use Status: Former Tobacco user Quit Date: 2002 Cigarettes Per Day: 2 e-Cigarette/Vaping Use: Never Used Second Hand Smoke Exposure: No service: No Current occupational status: disabled Cognitive needs: No Hearing needs: No Vision needs: Yes Review of Systems Const Denies weight gain and Denies weight loss ENT Reports no additional complaints, Denies dysphagia and Denies odynophagia Card Reports no additional complaints Resp Reports no additional complaints GI Denies abdominal pain, Denies belching, Denies melena, Reports bloating, Denies change in bowel habits, Reports constipation, Denies dysphagia, Denies excessive flatus, Denies dyspepsia, Reports heartburn, Denies diarrhea, Denies loose stools, Reports nausea, Denies odynophagia and Denies vomiting Reports no additional complaints Musc Reports no additional complaints Neuro Reports no additional complaints Psych Reports no additional complaints Endo Reports no additional complaints Physical Exam Vital Signs: Last Vital Signs Pulse 73 02/02/23 12:01 BP 132/69 02/02/23 12:01 BMI result Body Mass Index 33.8 Const General: healthy appearing, no acute distress and well developed Nutritional Appearance: obese Orientation/consciousness: patient oriented x3 HEENT Head: Yes normal to inspection, Yes normocephalic and Yes atraumatic Face and sinus: Yes normal facial exam Mouth: Normal oral and palatal mucosa present Throat: Yes posterior oropharynx normal, Yes tonsils normal and Yes uvula midline Eyes General: appearance normal, both eyes and all related structures Neck Neck: Yes normal visual inspection, Yes full ROM and Yes trachea midline Thyroid: Thyroid normal Resp Effort & Inspection: normal respiratory effort, able to speak in complete sentences, no tracheal deviation and symmetric chest movement Auscultation: clear to auscultation bilaterally Cardio Rate: regular rate Heart sounds: S1 normal heart sound present and S2 normal heart sound present GI Inspection: Yes normal to inspection, No distended and Yes obesity Palpation (GI): Soft to palpation, not firm, nontender and No hepatosplenomegaly present Auscultation: normal bowel sounds General: Yes no CVA tenderness Back/Spine/Pelvis Back: no CVA tenderness Skin General skin exam: elasticity normal, turgor normal and dry skin Neuro General: patient oriented x3 Psych Appearance: grossly normal Mental Status: mental status grossly normal Thought content: Normal thought content present Assessment & Plan Assessment & Plan (1) Constipation: Code(s): K59.00 - Constipation, unspecified Qualifiers: Constipation type: chronic idiopathic constipation Qualified Code(s): K59.04 - Chronic idiopathic constipation (2) GERD (gastroesophageal reflux disease): Code(s): K21.9 - Gastro-esophageal reflux disease without esophagitis Qualifiers: Esophagitis bleeding: without hemorrhage Esophagitis presence: with esophagitis Qualified Code(s): K21.00 - Gastro-esophageal reflux disease with esophagitis, without bleeding (3) Dysphagia: Code(s): R13.10 - Dysphagia, unspecified Qualifiers: Dysphagia type: unspecified Qualified Code(s): R13.10 - Dysphagia, unspecified Plan Patient will continue taking Motegrity. She can take Dulcolax at bedtime and Colace twice a day if no bowel movement in 2-3 days. Patient can also take MiraLax in the morning. Patient was encouraged to increase fluid intake and activity to promote better bowel motility. Continue taking lansoprazole daily. Patient was also encouraged to her avoid dietary triggers like night snacking. Staying apart from minimal 3 hours from meals discussed with patient. Patient will return in 3 months, sooner on as needed basis. Patient is on and verbalizes understanding of instructions. She was given the opportunity to ask questions and all questions answered. Thank you for allowing me to participate in her care Medications: New docusate sodium 100 mg PO BID 60 caps 3RF K59.00 - Constipation, unspecified polyethylene glycol 3350 (Miralax) 17 grams PO DAILY 510 grams 2RF Discontinued nortriptyline Discontinued Reason: Doctor's Order 10 mg PO BEDTIME 30 caps 3RF Coding Level of Care Code Est Pt Level 4 (18009) Diagnoses Chronic idiopathic constipation K59.04 Constipation type: chronic idiopathic constipation Gastroesophageal reflux disease with esophagitis without hemorrhage K21.00 Esophagitis bleeding: without hemorrhage Esophagitis presence: with esophagitis Dysphagia, unspecified type R13.10 Dysphagia type: unspecified Time Spent (min) 35 Comment 20 minutes spent with patient and additional 15 minutes spent reviewing her records
== END 2023-02-02 14:37 | disposition home or self-care (01) ==
PROVIDERS: PCP Physician Assistant; Visit Provider Nurse Practitioner Family
DX: K59.04 Chronic idiopathic constipation (principal); K21.00 Gastro-esophageal reflux disease with esophagitis, without bleeding; R13.10 Dysphagia, unspecified
CPT/HCPCS: 99214

== ENCOUNTER → 2023-02-02 11:55 | Outpatient (BNVA) | payer OTHER, SELFPAY | PROVIDERS: PCP Physician Assistant; Visit Provider Nurse Practitioner Family | DX: K59.04 Chronic idiopathic constipation (principal); K21.00 Gastro-esophageal reflux disease with esophagitis, without bleeding; R13.10 Dysphagia, unspecified | CPT/HCPCS: 99212 ==

== ENCOUNTER 2023-02-04 13:09 | Outpatient (REF) | payer OTHER, SELFPAY | END 2023-02-04 13:10 | disposition home or self-care (01) | LOC: HO.MDS 13:09 | PROVIDERS: Visit Provider Internal Medicine Pulmonary Disease | DX: J45.50 Severe persistent asthma, uncomplicated (principal) | CPT/HCPCS: 96372; J2357 ==

== ENCOUNTER 2023-02-15 12:36 | Outpatient (AMB) | payer OTHER, SELFPAY ==
[2023-02-15 12:48] VITALS: BP 124/66; PULSE 71; O2SAT 94; BMI 32.0
--- NOTE | 2023-02-15 12:48 | A.OFFVIS_ITS ---
Intake Vital Signs 02/15/23 12:48 Height 5 ft Weight 164 lb 0.383 oz BMI 32.0 BP 124/66 Blood Pressure Location Lt brachial Position Sitting Pulse 71 Pulse Source Pulse Oximeter Pulse Oximetry (%) 94 Oxygen Delivery Method Room Air Intake Visit Reasons: 6 month follow up Intake Note: Pt presents to the office today for a 6 month follow up. Pt states she has been very nauseous lately but has an upper endoscopy scheduled for tomorrow. Pt states she does get chest pains occasionally. PT states she does get dizzy more often as well. Pt states she has changed up her diet and have been doing more Allergies Fish Containing Products Allergy (Severe, Verified 02/15/23 12:48) throat closes nut - unspecified Allergy (Severe, Verified 02/15/23 12:48) Anaphylaxis peanut [Peanut] Allergy (Severe, Verified 02/15/23 12:48) ANAPHYLAXIS shellfish derived Allergy (Severe, Verified 02/15/23 12:48) Anaphylaxis kiwi Allergy (Intermediate, Verified 02/15/23 12:48) scratchy throat, swollen tongue peach Allergy (Intermediate, Verified 02/15/23 12:48) scratchy throat, swollen tongue Medication List - Last Reconciled 02/15/23 by Jcarlos Parekh MD acetic acid 2% 3 drps otic (ear) left TID 14 days albuterol sulfate 2.5 mg (3 mL) inhalation TID PRN 30 days albuterol sulfate 90 mcg/actuation (Ventolin HFA) 1 puff inhalation QID 30 days bisacodyl (Dulcolax (bisacodyl)) 10 mg (2 x 5 mg) PO BEDTIME Carafate (sucralfate) 10 mL PO BID 30 days NS cetirizine (Zyrtec) 10 mg PO DAILY PRN cholecalciferol (vitamin D3) 50 mcg PO DAILY clonazepam 2 mg PO BID PRN clonidine HCl 0.1 mg PO BID cyclobenzaprine 10 mg PO TID PRN diphenhydramine HCl 25 mg PO BEDTIME PRN docusate sodium (Colace) 100 mg PO DAILY 90 days docusate sodium 100 mg PO BID duloxetine 60 mg PO DAILY eszopiclone 3 mg PO BEDTIME fluticasone propionate 110 mcg/actuation 1 puff PO BID 30 days gabapentin 600 mg PO TID hydrocortisone 2.5% (Anusol-HC) 1 appl [place] QID PRN lactobacillus combination no.8 (Adult Probiotic) 3,000 mmu cells PO DAILY lansoprazole 30 mg PO DAILY [id number] 24,000-76,000 -120,000 unit (Creon) 1 cap PO QID lorazepam 2 mg PO BEDTIME PRN montelukast 10 mg PO DAILY 90 days omalizumab (Xolair) 375 mg subcut Q2W 28 days polyethylene glycol 3350 (Miralax) 17 grams PO DAILY prucalopride (Motegrity) 2 mg PO DAILY sumatriptan succinate take 1 tab at onset of headache; if no relief may repeat 1 tab after at least 2 hrs; max = 4 tabs/24 hr PO valacyclovir (Valtrex) 500 mg PO DAILY 30 days HPI HPI Comments History of Present Illness Details 53-year-old female here for preop assess ment. She is due to get colonoscopy because she has FH of colon cancer. She has asthma. She has exertional chest tightness as well as at times chest discomfort at rest. She gets chest discomfort while doing house chores. She does not exercise regularly. She has FH of CAD. He also has significant anxiety issues. No bleeding issues. She has some abdominal discomfort and pain with defecation at times. She underwent stress test which was equivocal. She had no symptoms or EKG changes but did not exercise long. No perfusion defect seen. I have explained this to her that the stress test is limited is she has significant anxiety and she feels that she wants a definitive answer. She was referred for a coronary CTA. She returns for follow-up. Her coronary CTA did not show any evidence of coronary disease. She continues to get some chest tightness off and on. She has asthma and GERD which can give similar symptoms. 02/15/23: She returns for follow-up. S he has been getting nausea and will be getting endoscopy done. She is set up on couple of occasions she felt very dizzy and lightheaded and fell she was not pass out while she was nauseous. She is being treated for asthma and follows with Dr. Earl. She is complaining of off and on palpitations. [facility] Medical History Oral herpes simplex infection Hx of sigmoidoscopy Anxiety Migraines Multiple food allergies Migraine Conjunctivitis Otitis media Diverticulosis Hx of chest pain Asthma PVD (peripheral vascular disease) HTN (hypertension) Equivocal stress test Surgical History History of esophagogastroduodenoscopy (EGD) H/O colonoscopy Hx of varicose vein ligation History of bladder surgery History of hysterectomy History of tubal ligation H/O splenectomy History of cholecystectomy Family History Father Alzheimers disease Mother Asthma attack Brother Hypertension Hypercholesterolemia Depression Sister Heart disease Diabetes Daughter COPD (chronic obstructive pulmonary disease) Sister Uterine cancer Brother Throat cancer Other Mental health disorder Household Members: Children and Other Housing: House Are you a primary critical care rn to a significant other at home: No Do you presently have visiting nurse or other home services: No Alcohol intake: never Patient Tobacco Use Status: Former Tobacco user Quit Date: 2002 Cigarettes Per Day: 2 e-Cigarette/Vaping Use: Never Used Second Hand Smoke Exposure: No service: No Current occupational status: disabled Cognitive needs: No Hearing needs: No Vision needs: Yes Physical Exam Vital Signs: Last Vital Signs Pulse 71 02/15/23 12:48 BP 124/66 02/15/23 12:48 Pulse Ox 94 02/15/23 12:48 Oxygen Delivery Method Room Air 02/15/23 12:48 BMI result Body Mass Index 32.0 GENERAL APPEARANCE: in no acute distress, well developed, well nourished. NECK/THYROID: no carotid bruit, no jugular venous distention. SKIN: no suspicious lesions, warm and dry. HEART: no murmurs, regular rate and rhythm, S1, S2 normal. LUNGS: clear to auscultation bilaterally. ABDOMEN: normal, bowel sounds present, soft, nontender, nondistended. EXTREMITIES: no clubbing, cyanosis, or edema. PERIPHERAL PULSES: equal. NEUROLOGIC: nonfocal, alert and oriented. Assessment & Plan Assessment & Plan (1) Dizziness: Code(s): R42 - Dizziness and giddiness Plan 53-year-old female who is here for follow-up. She had coronary CTA performed previously which was negative for coronary artery disease. She has asthma and is being treated by pulmonology. She has nausea and dizziness that time with nausea spells. She is getting endoscopy. I have advised her to keep herself well hydrated. She has been experiencing palpitations and is quite concerned about them. These episodes up to 2 to 3 times a week. We will arrange a one-week Holter monitor. Thank you for allowing me to participate in the care of your patient. Please feel free to contact me if you have any questions. Orders: Orders ECG 7 day holter monitor Today R42 - Dizziness and giddiness Coding Level of Care Code Est Pt Level 3 (63966) Diagnoses Dizziness R42
== END 2023-02-15 13:38 | disposition home or self-care (01) ==
PROVIDERS: Visit Provider Internal Medicine Cardiovascular Disease
DX: R42 Dizziness and giddiness (principal)
CPT/HCPCS: 99213

== ENCOUNTER → 2023-02-15 12:36 | Outpatient (BNVA) | payer OTHER, SELFPAY | PROVIDERS: Visit Provider Internal Medicine Cardiovascular Disease | DX: R42 Dizziness and giddiness (principal) | CPT/HCPCS: 99212 ==

== ENCOUNTER 2023-02-16 09:21 | Day surgery (SDC) | payer OTHER, SELFPAY ==
--- NOTE | 2023-02-15 09:10 | P.CONAN_ITS ---
Documented by User: Shaila Montiel NP 02/15/23 09:12 HPI - Anesthesia Eval Consult details Narrative: 53yo F for Upper Endoscopy with Balloon Dilitation s/p flex sig 05/2022 with TIVA Eval by [facility] cardiology 07/2022 for CP. All w/u neg for cardiac cause. Referred to pulmo [facility] Active Problems Active Problems: All Active Problems (Updated 11/13/22 @ 13:52 by Femi Earl MD) Environmental allergies (Acute) Borderline high cholesterol (Acute) Otorrhea of left ear (Acute) HTN (hypertension) (Acute) Asthma (Acute) Obese (Acute) PVD (peripheral vascular disease) (Acute) Constipation (Acute) Colon cancer screening (Acute) Chest pain (Acute) Swelling of both lips (Acute) Annual physical exam (Acute) Menopausal symptom (Acute) MDD (major depressive disorder), recurrent episode, moderate (Acute) Impaired glucose metabolism (Acute) JEROME (generalized anxiety disorder) (Acute) Annual physical exam (Acute) GERD (gastroesophageal reflux disease) (Acute) Past Medical History Medical History Oral herpes simplex infection Hx of sigmoidoscopy Anxiety Migraines Multiple food allergies Migraine Conjunctivitis Otitis media Diverticulosis Hx of chest pain Asthma PVD (peripheral vascular disease) HTN (hypertension) Equivocal stress test Family History Family History Father Alzheimers disease Mother Asthma attack Brother Hypertension Hypercholesterolemia Depression Sister Heart disease Diabetes Daughter COPD (chronic obstructive pulmonary disease) Sister Uterine cancer Brother Throat cancer Other Mental health disorder Family history of problems with anesthesia: No Surgical History Surgical History History of esophagogastroduodenoscopy (EGD) H/O colonoscopy Hx of varicose vein ligation History of bladder surgery History of hysterectomy History of tubal ligation H/O splenectomy History of cholecystectomy History of Problems with Anesthesia: Yes Social History Household Members: Children and Other Housing: House Are you a primary patient centered care specialist to a significant other at home: No Do you presently have visiting nurse or other home services: No Alcohol intake: never Patient Tobacco Use Status: Former Tobacco user Quit Date: 2002 Cigarettes Per Day: 2 e-Cigarette/Vaping Use: Never Used Second Hand Smoke Exposure: No Have you been hit, kicked, punched, or otherwise hurt by someone within the past year? If so, by whom?: No Are you DNR?: No Advance Directives: No Advance Directives Information Provided: Yes Recently lost weight without trying: No Eating poorly because of decreased appetite: No Nutrition Risks: No Nutritional Risk Patient : No service: No Current occupational status: disabled Cognitive needs: No Hearing needs: No Vision needs: Yes Meds Allergies Allergy/AdvReac Type Severity Reaction Status Date / Time Fish Containing Products Allergy Severe throat Verified 02/15/23 12:48 closes nut - unspecified Allergy Severe Anaphylaxis Verified 02/15/23 12:48 peanut [Peanut] Allergy Severe ANAPHYLAXIS Verified 02/15/23 12:48 shellfish derived Allergy Severe Anaphylaxis Verified 02/15/23 12:48 kiwi Allergy Intermediate scratchy Verified 02/15/23 12:48 throat, swollen tongue peach Allergy Intermediate scratchy Verified 02/15/23 12:48 throat, swollen tongue Home Medications Medication Instructions Recorded Confirmed Last Taken Type clonazepam 2 mg tablet 2 mg PO BID PRN Anxiety 01/25/20 02/15/23 06/16/22 History diphenhydramine HCl 25 mg tablet 25 mg PO BEDTIME PRN Insomnia 01/25/20 02/15/23 Unknown History duloxetine 60 mg capsule,delayed 60 mg PO DAILY 01/25/20 02/15/23 06/16/22 History release eszopiclone 3 mg tablet 3 mg PO BEDTIME 01/25/20 02/15/23 Unknown History gabapentin 600 mg tablet 600 mg PO TID 01/25/20 02/15/23 06/16/22 History lorazepam 2 mg tablet 2 mg PO BEDTIME PRN Anxiety 01/25/20 02/15/23 Unknown History clonidine HCl 0.1 mg tablet 0.1 mg PO BID 05/13/20 02/15/23 06/16/22 History Exam Pertinent Lab Results Pertinent Lab Results: Laboratory Tests 08/22/22 10/09/22 10:05 16:08 WBC 9.5 Hgb 13.7 Hct 42.8 Plt Count 275 Sodium 143 Potassium 4.9 Chloride 109 H Carbon Dioxide 28 BUN 17 H Creatinine 0.85 Narrative Narrative: EKG 07/2022 Normal sinus rhythm 73 beats per minute, normal axis, septal infarct, QTC 450 milliseconds Assessment and Plan Assessment Anesthesia Assessment: Chart Reviewed Final Anesthetic Review Family History of Problems with Anesthesia: No History of Problems with Anesthesia: Yes Documented by User: Diane Connor MD 02/16/23 09:38 [facility] Past Medical History Medical History Oral herpes simplex infection Hx of sigmoidoscopy Anxiety Migraines Multiple food allergies Migraine Conjunctivitis Otitis media Diverticulosis Hx of chest pain Asthma PVD (peripheral vascular disease) HTN (hypertension) Equivocal stress test Family History Family History Father Alzheimers disease Mother Asthma attack Brother Hypertension Hypercholesterolemia Depression Sister Heart disease Diabetes Daughter COPD (chronic obstructive pulmonary disease) Sister Uterine cancer Brother Throat cancer Other Mental health disorder Surgical History Surgical History History of esophagogastroduodenoscopy (EGD) H/O colonoscopy Hx of varicose vein ligation History of bladder surgery History of hysterectomy History of tubal ligation H/O splenectomy History of cholecystectomy History of Problems with Anesthesia: No Social History Household Members: Children and Other Housing: House Are you a primary patient centered care specialist to a significant other at home: No Do you presently have visiting nurse or other home services: No Alcohol intake: never Patient Tobacco Use Status: Former Tobacco user Quit Date: 2002 Cigarettes Per Day: 2 e-Cigarette/Vaping Use: Never Used Second Hand Smoke Exposure: No Have you been hit, kicked, punched, or otherwise hurt by someone within the past year? If so, by whom?: No Are you DNR?: No Advance Directives: No Advance Directives Information Provided: Yes Recently lost weight without trying: No Eating poorly because of decreased appetite: No Nutrition Risks: No Nutritional Risk Patient : No service: No Current occupational status: disabled Cognitive needs: No Hearing needs: No Vision needs: Yes Meds Allergies Allergy/AdvReac Type Severity Reaction Status Date / Time Fish Containing Products Allergy Severe throat Verified 02/15/23 12:48 closes nut - unspecified Allergy Severe Anaphylaxis Verified 02/15/23 12:48 peanut [Peanut] Allergy Severe ANAPHYLAXIS Verified 02/15/23 12:48 shellfish derived Allergy Severe Anaphylaxis Verified 02/15/23 12:48 kiwi Allergy Intermediate scratchy Verified 02/15/23 12:48 throat, swollen tongue peach Allergy Intermediate scratchy Verified 02/15/23 12:48 throat, swollen tongue Home Medications Medication Instructions Recorded Confirmed Last Taken Type clonazepam 2 mg tablet 2 mg PO BID PRN Anxiety 01/25/20 02/15/23 06/16/22 History diphenhydramine HCl 25 mg tablet 25 mg PO BEDTIME PRN Insomnia 01/25/20 02/15/23 Unknown History duloxetine 60 mg capsule,delayed 60 mg PO DAILY 01/25/20 02/15/23 06/16/22 History release eszopiclone 3 mg tablet 3 mg PO BEDTIME 01/25/20 02/15/23 Unknown History gabapentin 600 mg tablet 600 mg PO TID 01/25/20 02/15/23 06/16/22 History lorazepam 2 mg tablet 2 mg PO BEDTIME PRN Anxiety 01/25/20 02/15/23 Unknown History clonidine HCl 0.1 mg tablet 0.1 mg PO BID 05/13/20 02/15/23 06/16/22 History Exam Airway Mallampati Class: II TM Dist: >3cm Neck ROM: Full Assessment and Plan Assessment Anesthesia Assessment: Anesthesia Plan Discussed Final Anesthetic Review History of Problems with Anesthesia: No NPO: Yes ASA Class: II Final Preanesthetic Review: No Changes in Pt Med Stat, Meds/Allgs Chart Reviewed, Consent Obtained/Reviewed and Anes Risks/Benef Reviewed Patient Risk: Low Procedure Risk: Low Anesthetic Plan Anesthetic Plan: MAC: Disposition: Standard PACU
[2023-02-16 09:29] VITALS: BP 120/79; PULSE 87; RESP 16; TEMP 36.3; O2SAT 98; BMI 32.0
[2023-02-16] MEDS: Lactated Ringers 1,000 ML 100 ML IVCONT (09:39)
--- NOTE | 2023-02-16 09:52 | MHC.SHP ---
Pre-Procedural Eval Section A Date of Service: 02/16/23 Section B Chief Complaint: Dysphagia, unspecified Relevant Family History (Specify if Yes): No Relevant Social History: None Present Medications: see Short Stay Collaborative assessment Medical History: Significant History (Oral herpes simplex infection Hx of sigmoidoscopy Anxiety Migraines Multiple food allergies Migraine Conjunctivitis Otitis media Diverticulosis Hx of chest pain Asthma PVD (peripheral vascular disease) HTN (hypertension) Equivocal stress test) History of Previous Operations: Relevant previous surgery/procedure and date(s) (History of esophagogastroduodenoscopy (EGD) H/O colonoscopy Hx of varicose vein ligation History of bladder surgery History of hysterectomy History of tubal ligation H/O splenectomy History of cholecystectomy) Allergies: Allergies Allergy/AdvReac Type Severity Reaction Status Date / Time Fish Containing Products Allergy Severe throat Verified 02/15/23 12:48 closes nut - unspecified Allergy Severe Anaphylaxis Verified 02/15/23 12:48 peanut [Peanut] Allergy Severe ANAPHYLAXIS Verified 02/15/23 12:48 shellfish derived Allergy Severe Anaphylaxis Verified 02/15/23 12:48 kiwi Allergy Intermediate scratchy Verified 02/15/23 12:48 throat, swollen tongue peach Allergy Intermediate scratchy Verified 02/15/23 12:48 throat, swollen tongue Review of Systems Sugical H&P ROS: Negative: Constitution, Cardiovascular, Respiratory, Neurological, Psychiatric, Hem-Onc, Allergic/Immunologic, Gastrointestinal, Genitourinary, Musculoskeletal, Integumentary, Endocrine and Eyes/Ears/Nose/Throat Exam Surgical H&P Exam: Normal: HEENT, Normal: Heart, Normal: Lungs, Normal: Extremities, Normal: Abdomen, Normal: Skin and Normal: Neurological Plan Diagnosis/Plan: Unchanged I have reviewed the history and physical and performed a pertinent physical examination on my patient. No changes have occurred unless specified. Time Spent With Patient Time: Total time managing care of this patient today ____ minutes.
--- NOTE | 2023-02-16 09:53 | W.PM.OPN ---
Operative Note Operative Note Date of Service: 02/16/23 Narrative: Procedure Description: EGD Indication: dysphagia Anesthesia: MAC FLEXIBLE TRANSORAL UPPER GASTROINTESTINAL ENDOSCOPY UPPER ENDOSCOPY Consent: Indications for the procedure and potential complications of bleeding, perforation, reaction to medications and missed diagnosis were discussed with the patient and informed consent was obtained. Instrument: Olympus GIF H 190 J mid size upper endoscope Monitoring: Vital signs and clinical assessment, continuous EKG monitoring, Pulse oximetry, Carbon Dioxide monitoring and blood pressure monitoring were done throughout the procedure. Procedure: The patient was placed in the left lateral decubitis position and pre-procedure medications were administered and a bite block was placed. The endoscope was inserted into the mouth and advanced under direct vision to the third part of duodenum. A careful inspection was made as the upper endoscope was withdrawn including a retroflexed examination of the proximal stomach; Findings and interventions are described below. Findings: Larynx:normal Esophagus: GE junction at 35 cm, diaphragm hiatus at 35 cm, bx taken from GEJ as well as from distal and proximal esophagus. esophageal dilation performed using savary wire guided technique with 17 mm bougie. Stomach: Patchy gastric erythema. Biopsies were obtained. Grade 2 flap valve on retroflexed examination of the cardia. Duodenum: normal Intervention: Biopsies as noted above, savary dilation Impression/Findings: gastritis PLAN: await bx and assess response to PPI if h pylori pos then treat if sx persist then manometry or PH study on PPI
[2023-02-16 10:15] VITALS: BP 115/58; PULSE 68; RESP 16; TEMP 36.6; O2SAT 97
[2023-02-16 10:30] VITALS: BP 115/57; PULSE 65; RESP 16; O2SAT 100
[2023-02-16 10:45] VITALS: BP 101/75; PULSE 70; RESP 16; TEMP 36.4; O2SAT 99
== END 2023-02-16 11:42 | disposition home or self-care (01) ==
PROVIDERS: PCP Physician Assistant; Visit Provider Internal Medicine Gastroenterology
PROC: (CPT 43248; principal; 2023-02-16 11:10)
DX: R13.10 Dysphagia, unspecified (principal); K29.50 Unspecified chronic gastritis without bleeding; K44.9 Diaphragmatic hernia without obstruction or gangrene; I10 Essential (primary) hypertension; B00.2 Herpesviral gingivostomatitis and pharyngotonsillitis; J45.909 Unspecified asthma, uncomplicated; G43.909 Migraine, unspecified, not intractable, without status migrainosus; F41.9 Anxiety disorder, unspecified; Z90.49 Acquired absence of other specified parts of digestive tract; Z79.899 Other long term (current) drug therapy; Z91.018 Allergy to other foods; Z91.010 Allergy to peanuts; Z91.013 Allergy to seafood; Z98.890 Other specified postprocedural states; Z87.891 Personal history of nicotine dependence
CPT/HCPCS: 43248; 43239; 88305; 88342; C1769; J2704

== ENCOUNTER → 2023-02-16 09:21 | Outpatient (BNV) | payer OTHER, SELFPAY | PROVIDERS: PCP Physician Assistant; Visit Provider Internal Medicine Gastroenterology | DX: K29.70 Gastritis, unspecified, without bleeding (principal); K31.89 Other diseases of stomach and duodenum | CPT/HCPCS: 43239; 43248 ==

== ENCOUNTER 2023-02-18 12:08 | Outpatient (REF) | payer OTHER, SELFPAY | END 2023-02-18 12:09 | disposition home or self-care (01) | LOC: HO.MDS 12:08 | PROVIDERS: Visit Provider Internal Medicine Pulmonary Disease | DX: J45.50 Severe persistent asthma, uncomplicated (principal) | CPT/HCPCS: 96372; J2357 ==

== ENCOUNTER 2023-02-25 10:09 | Outpatient (REF) | payer OTHER, SELFPAY ==
[2023-02-25 11:24] LABS: Hematocrit 45.1 % (37.0-47.0); Hemoglobin 14.5 g/dl (12.0-16.0); Mean Corpuscular HGB Conc 32.2 g/dl (31.0-35.0); Mean Corpuscular Volume 87.1 fL (80.0-98.0); Mean Platelet Volume 10.9 fL (9.4-12.3); Platelet Count 262 X10*3/uL (160-400); Red Blood Count 5.18 X10*6/uL (4.20-5.50); Red Cell Distribution Width 13.2 % (11.0-16.0); White Blood Count 7.3 X10*3/uL (4.8-10.8)
[2023-02-25 11:58] LABS: Creatinine Urine 521.99 mg/dL; Microalbum/Creatinine Ratio Ur 7.8 ug/mg cr (<30)
[2023-02-25 12:13] LABS: Alanine Aminotransferase 11 U/L (0-31); Albumin Level 4.6 g/dL (3.5-5.0); Alkaline Phosphatase 74 U/L (39-117); Anion Gap 11 (12-20); Aspartate Amino Transferase 18 U/L (5-31); Bilirubin Total 0.4 mg/dL (0.0-1.0); Blood Urea Nitrogen 15 mg/dL (9-16); Calcium 10.1 mg/dL (8.4-10.2); Carbon Dioxide 26 mmol/L (22-29); Chloride 108 mmol/L (96-108); Cholesterol 216 mg/dL (<200); Estimated Glomerular Filt Rate 57; Glucose Fasting 102 mg/dL (60-99); HDL Cholesterol 57 mg/dL (>40); LDL Cholesterol Calculated 136 mg/dL (<100); Potassium 4.3 mmol/L (3.3-5.1); Sodium 141 mmol/L (135-145); Total Protein 8.7 g/dL (6.5-8.0); Triglycerides 119 mg/dL (<150)
== END 2023-02-25 10:10 | disposition home or self-care (01) ==
LOC: HO.LAB 10:09
PROVIDERS: PCP Physician Assistant; Visit Provider Physician Assistant
DX: I10 Essential (primary) hypertension (principal); E78.9 Disorder of lipoprotein metabolism, unspecified
CPT/HCPCS: 36415; 80053; 80061; 82043; 82570; 85027

== ENCOUNTER 2023-03-01 14:33 | Outpatient (REF) | payer OTHER, SELFPAY | END 2023-03-01 14:34 | disposition home or self-care (01) | LOC: HO.MAMMO 14:33 | PROVIDERS: PCP Physician Assistant; Visit Provider Physician Assistant | DX: Z12.31 Encounter for screening mammogram for malignant neoplasm of breast (principal) | CPT/HCPCS: 77063; 77067 ==

== ENCOUNTER → 2023-03-01 15:30 | Outpatient (BNV) | payer OTHER, SELFPAY | PROVIDERS: PCP Physician Assistant; Visit Provider Radiology Diagnostic Radiology | DX: Z12.31 Encounter for screening mammogram for malignant neoplasm of breast (principal) | CPT/HCPCS: 77063; 77067 ==

== ENCOUNTER 2023-03-02 13:34 | Outpatient (AMB) | payer OTHER, SELFPAY ==
--- NOTE | 2023-03-02 14:03 | A.OFFVIS_ITS ---
Intake Vital Signs 03/02/23 14:10 Height 5 ft Weight 156 lb 8.451 oz BMI 30.6 BP 114/68 Blood Pressure Location Lt brachial Position Sitting Pulse 88 Intake Visit Reasons: s/p EGD; Dr. Lewis Intake Note: Araceli presents in the office as a follow up EGD. CC: Loss of appetites and she states she still has nausea but its just a normal thing for her. Allergies Fish Containing Products Allergy (Severe, Verified 03/03/23 07:29) throat closes nut - unspecified Allergy (Severe, Verified 03/03/23 07:29) Anaphylaxis peanut [Peanut] Allergy (Severe, Verified 03/03/23 07:29) ANAPHYLAXIS shellfish derived Allergy (Severe, Verified 03/03/23 07:29) Anaphylaxis kiwi Allergy (Intermediate, Verified 03/03/23 07:29) scratchy throat, swollen tongue peach Allergy (Intermediate, Verified 03/03/23 07:29) scratchy throat, swollen tongue HPI s/p EGD; Dr. Lewis HPI Details LAST VISIT: Constipation GERD (gastroesophageal reflux disease) Dysphagia Plan Patient will continue taking Motegrity. She can take Dulcolax at bedtime and Colace twice a day if no bowel movement in 2-3 days. Patient can also take MiraLax in the morning. Patient was encouraged to increase fluid intake and activity to promote better bowel motility. Continue taking lansoprazole daily. Patient was also encouraged to her avoid dietary triggers like night snacking. Staying apart from minimal 3 hours from meals discussed with patient. Patient will return in 3 months, sooner on as needed basis. Patient is on and verbalizes understanding of instructions. She was given the opportunity to ask questions and all questions answered. ? Thank you for allowing me to participate in her care Medications New docusate sodium 100 mg PO BID 60 caps 3RF K59.00 polyethylene glycol 3350 (Miralax) 17 grams PO DAILY 510 grams 2RF Discontinued nortriptyline Discontinued Reason: Doctor's Order 10 mg PO BEDTIME 30 caps 3RF UPPER ENDOSCOPY Findings: Larynx:normal Esophagus: GE junction at 35 cm, diaphragm hiatus at 35 cm, bx taken from GEJ as well as from distal and proximal esophagus. esophageal dilation performed using savary wire guided technique with 17 mm bougie. Stomach: Patchy gastric erythema. Biopsies were obtained. Grade 2 flap valve on retroflexed examination of the cardia. Duodenum: normal Intervention: Biopsies as noted above, savary dilation Impression/Findings: gastritis PLAN: await bx and assess response to PPI if h pylori pos then treat if sx persist then manometry or PH study on PPI PATHOLOGY RESULTS Diagnosis A. Stomach, biopsies: Mild chronic inactive gastritis; no evidence of H. pylori, intestinal metaplasia or dysplasia. B. GE junction, biopsies: Esophageal squamous mucosa with no diagnostic abnorma lity; no evidence of active esophagitis, fungal organisms, dysplasia or malignancy. C. Distal esophagus, biopsies: Esophageal squamous mucosa with no diagnostic abnormality; no evidence of active esophagitis, fungal organisms, dysplasia or malignancy TODAY'S VISIT Patient is here today for follow-up and discuss upper endoscopy results. Essentially patient is doing better. Occasional nausea, however she no longer has dysphagia or dyspepsia. Patient states that for the most part she feels like Nexium is working. Patient also is using sucralfate once or twice a day and her symptoms of epigastric discomfort are better. Patient reports that she is little stressed out as she is trying to wrap up everything here in [place] and is going to be moving to be with her boyfriend in [place]. Patient states that she has very short time to do that and will be moving in the beginning of March. Patient denies any nausea or vomiting. Upper endoscopy results and biopsy discussed with patient. Patient is trying to avoid dietary triggers. Eating healthier. Patient reports that she last some weight which she is going to try to do that on her own. In 1 month patient lost 16 lb. Patient does admit that she will have occasional nausea depending on what she eats. Patient denies eating late at night. [facility] Medical History Oral herpes simplex infection Hx of sigmoidoscopy Anxiety Migraines Multiple food allergies Migraine Conjunctivitis Otitis media Diverticulosis Hx of chest pain Asthma PVD (peripheral vascular disease) HTN (hypertension) Equivocal stress test Surgical History History of esophagogastroduodenoscopy (EGD) H/O colonoscopy Hx of varicose vein ligation History of bladder surgery History of hysterectomy History of tubal ligation H/O splenectomy History of cholecystectomy Family History Father Alzheimers disease Mother Asthma attack Brother Hypertension Hypercholesterolemia Depression Sister Heart disease Diabetes Daughter COPD (chronic obstructive pulmonary disease) Sister Uterine cancer Brother Throat cancer Other Mental health disorder Social History Household Members: Children and Other Housing: House Are you a primary resident care director to a significant other at home: No Do you presently have visiting nurse or other home services: No Alcohol intake: never Patient Tobacco Use Status: Former Tobacco user Quit Date: 2002 Cigarettes Per Day: 2 e-Cigarette/Vaping Use: Never Used Second Hand Smoke Exposure: No service: No Current occupational status: disabled Cognitive needs: No Hearing needs: No Vision needs: Yes Review of Systems Const Denies weight gain and Denies weight loss ENT Reports no additional complaints, Denies dysphagia and Denies odynophagia Card Reports no additional complaints Resp Reports no additional complaints GI Denies abdominal pain, Denies belching, Denies melena, Denies bloating, Denies change in bowel habits, Denies dysphagia, Denies excessive flatus, Denies dyspepsia, Denies heartburn, Denies diarrhea, Denies loose stools, Reports nausea (Occasional), Denies odynophagia and Denies vomiting Reports no additional complaints Musc Reports no additional complaints Neuro Reports no additional complaints Psych Reports no additional complaints Endo Reports no additional complaints Physical Exam Vital Signs: Last Vital Signs Pulse 88 03/02/23 14:10 BP 114/68 03/02/23 14:10 BMI result Body Mass Index 30.6 Const General: healthy appearing, no acute distress and well developed Nutritional Appearance: obese Orientation/consciousness: patient oriented x3 HEENT Head: Yes normal to inspection, Yes normocephalic and Yes atraumatic Face and sinus: Yes normal facial exam Mouth: Normal oral and palatal mucosa present Throat: Yes posterior oropharynx normal, Yes tonsils normal and Yes uvula midline Eyes General: appearance normal, both eyes and all related structures Neck Neck: Yes normal visual inspection, Yes full ROM and Yes trachea midline Thyroid: Thyroid normal Resp Effort & Inspection: normal respiratory effort, able to speak in complete sentences, no tracheal deviation and symmetric chest movement Auscultation: clear to auscultation bilaterally Cardio Rate: regular rate GI Inspection: Yes normal to inspection, No distended and Yes obesity Palpation (GI): Soft to palpation, not firm, nontender and No hepatosplenomegaly present Auscultation: normal bowel sounds General: Yes no CVA tenderness Back/Spine/Pelvis Back: no CVA tenderness Skin General skin exam: elasticity normal, turgor normal and dry skin Neuro General: patient oriented x3 Psych Appearance: grossly normal Mental Status: mental status grossly normal Assessment & Plan Assessment & Plan (1) Constipation: Code(s): K59.00 - Constipation, unspecified Qualifiers: Constipation type: chronic idiopathic constipation Qualified Code(s): K59.04 - Chronic idiopathic constipation (2) GERD (gastroesophageal reflux disease): Code(s): K21.9 - Gastro-esophageal reflux disease without esophagitis Qualifiers: Esophagitis presence: with esophagitis Esophagitis bleeding: without hemorrhage Qualified Code(s): K21.00 - Gastro-esophageal reflux disease with esophagitis, without bleeding (3) Dysphagia: Code(s): R13.10 - Dysphagia, unspecified Qualifiers: Dysphagia type: esophageal phase Qualified Code(s): R13.19 - Other dysphagia Plan Patient no longer has trouble swallowing. Esophageal dilation performed while having and does come pick procedure. Patient reports that her symptoms are more controlled now. Continue Nexium and sucralfate. Continue Dulcolax and MiraLax to help her move her bowels. Patient was encouraged to increase fluid intake and activity to promote bowel motility. I will see patient in 3 weeks, sooner on as needed basis. Patient is agreeable to this plan and verbalizes understanding of instructions. She was given the opportunity to ask questions and all questions answered. Thank you for allowing participate in her care Coding Level of Care Code Est Pt Level 3 (23989) Diagnoses Chronic idiopathic constipation K59.04 Constipation type: chronic idiopathic constipation Gastroesophageal reflux disease with esophagitis without hemorrhage K21.00 Esophagitis presence: with esophagitis Esophagitis bleeding: without hemorrhage Esophageal dysphagia R13.19 Dysphagia type: esophageal phase Time Spent (min) 30 Comment 20 minutes spent with patient and additional 10 minutes spent reviewing her records
[2023-03-02 14:10] VITALS: BP 114/68; PULSE 88; BMI 30.6
== END 2023-03-02 15:21 | disposition home or self-care (01) ==
PROVIDERS: PCP Physician Assistant; Visit Provider Nurse Practitioner Family
DX: K59.04 Chronic idiopathic constipation (principal); K21.00 Gastro-esophageal reflux disease with esophagitis, without bleeding; R13.19 Other dysphagia
CPT/HCPCS: 99213

== ENCOUNTER → 2023-03-02 13:34 | Outpatient (BNVA) | payer OTHER, SELFPAY | PROVIDERS: PCP Physician Assistant; Visit Provider Nurse Practitioner Family | DX: K59.04 Chronic idiopathic constipation (principal); K21.00 Gastro-esophageal reflux disease with esophagitis, without bleeding; R13.19 Other dysphagia | CPT/HCPCS: 99212 ==

== ENCOUNTER 2023-03-02 14:31 | Outpatient (AMB) | payer OTHER, SELFPAY ==
--- NOTE | 2023-03-02 14:33 | MHC.PC.OV ---
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 Accompanied by: Self / Same As Patient Allergies Fish Containing Products Allergy (Severe, Verified 03/03/23 07:29) throat closes nut - unspecified Allergy (Severe, Verified 03/03/23 07:29) Anaphylaxis peanut [Peanut] Allergy (Severe, Verified 03/03/23 07:29) ANAPHYLAXIS shellfish derived Allergy (Severe, Verified 03/03/23 07:29) Anaphylaxis kiwi Allergy (Intermediate, Verified 03/03/23 07:29) scratchy throat, swollen tongue peach Allergy (Intermediate, Verified 03/03/23 07:29) scratchy throat, swollen tongue Medication List - Last Reconciled 03/02/23 by Luis Panda PA-C acetic acid 2% 3 drps otic (ear) left TID 14 days albuterol sulfate 2.5 mg (3 mL) inhalation TID PRN 30 days albuterol sulfate 90 mcg/actuation (Ventolin HFA) 1 puff inhalation QID 30 days bisacodyl (Dulcolax (bisacodyl)) 10 mg (2 x 5 mg) PO BEDTIME Carafate (sucralfate) 10 mL PO BID 30 days NS cetirizine (Zyrtec) 10 mg PO DAILY PRN cholecalciferol (vitamin D3) 50 mcg PO DAILY clonazepam 2 mg PO BID PRN clonidine HCl 0.1 mg PO BID cyclobenzaprine 10 mg PO TID PRN diphenhydramine HCl 25 mg PO BEDTIME PRN docusate sodium (Colace) 100 mg PO DAILY 90 days docusate sodium 100 mg PO BID duloxetine 60 mg PO DAILY esomeprazole magnesium 20 mg PO DAILY eszopiclone 3 mg PO BEDTIME fluticasone propionate 110 mcg/actuation 1 puff PO BID 30 days gabapentin 600 mg PO TID hydrocortisone 2.5% (Anusol-HC) 1 appl [place] QID PRN lactobacillus combination no.8 (Adult Probiotic) 3,000 mmu cells PO DAILY [id number] 24,000-76,000 -120,000 unit (Creon) 1 cap PO QID lorazepam 2 mg PO BEDTIME PRN montelukast 10 mg PO DAILY 90 days nortriptyline 10 mg PO BEDTIME omalizumab (Xolair) 375 mg subcut Q2W 28 days polyethylene glycol 3350 (Miralax) 17 grams PO DAILY prucalopride (Motegrity) 2 mg PO DAILY sumatriptan succinate take 1 tab at onset of headache; if no relief may repeat 1 tab after at least 2 hrs; max = 4 tabs/24 hr PO valacyclovir (Valtrex) 500 mg PO DAILY 30 days Tobacco use date assessed: 06/23/22 HPI f/u GERD/ Borderline high cholesterol HPI Details Araceli is a 52 y/o F? here today for follow-up visit.. ?Patient has a pmhx significant for HTN, Asthma, anxiety, depression, migraines, PVD, Polyarthritis. Patient plans on moving to [place] indefinitely to take care of her brother. She will establish care with a new PCP in [place]. .. Borderline high cholesterol: Noted most recent labs showing a borderline high cholesterol. She reports she was recently on vacation and did not have the best diet. Will continue to follow lipid panel at this time and consider statin therapy if remains elevated ? Chronic constipation-- recently underwent endoscopy and biopsies taken which showed mild inactive gastritis. H pylori was negative seen by her GI specialist started on new GI medication? Patient unable to get medications covered by insurance. ? Concerns--> ' CHRONIC MEDICAL CONDITIONS--> ? Depression: Is seeing a therapist and med provider. She report her mood is up and down.? Continues on clonazepam along with as needed lorazepam and zolpidem for night.? She wonders why she is tired during the day and has forgetfulness.? We discussed her doses of clonazepam and advised her to her psychiatrist about reducing doses. ? .. ? Asthma:? Now followed by pulmonology. She reports her asthma symptoms have been fairly stable though during allergy seasons her asthma does exacerbate. She was on Singulair in the past though has not been taking this medication and would like to restart. She has started on Xolair which has helped her allergy/ asthma symptoms. Laboratory Tests 04/25/21 08/22/22 02/25/23 12:22 10:05 10:33 RBC 5.16 Creatinine 0.85 Fasting Glucose AST 32 H ALT 39 H Cholesterol 218 LDL Cholesterol, C alc 140 TSH 2.10 Estrogen 96.5 Estrone (E1) 46 FSH 9.2 Urine Microalbumin 41.0 02/25/23 10:35 RBC Creatinine Fasting Glucose 102 H AST ALT Cholesterol 216 H LDL Cholesterol, C alc 136 H TSH Estrogen Estrone (E1) FSH Urine Microalbumin PFSH Medical History Oral herpes simplex infection Hx of sigmoidoscopy Anxiety Migraines Multiple food allergies Migraine Conjunctivitis Otitis media Diverticulosis Hx of chest pain Asthma PVD (peripheral vascular disease) HTN (hypertension) Equivocal stress test Surgical History History of esophagogastroduodenoscopy (EGD) H/O colonoscopy Hx of varicose vein ligation History of bladder surgery History of hysterectomy History of tubal ligation H/O splenectomy History of cholecystectomy Family History Father Alzheimers disease Mother Asthma attack Brother Hypertension Hypercholesterolemia Depression Sister Heart disease Diabetes Daughter COPD (chronic obstructive pulmonary disease) Sister Uterine cancer Brother Throat cancer Other Mental health disorder Social History Household Members: Children and Other Housing: House Are you a primary home health aide caregiver to a significant other at home: No Do you presently have visiting nurse or other home services: No Alcohol intake: never Patient Tobacco Use Status: Former Tobacco user Quit Date: 2002 Cigarettes Per Day: 2 e-Cigarette/Vaping Use: Never Used Second Hand Smoke Exposure: No service: No Current occupational status: disabled Cognitive needs: No Hearing needs: No Vision needs: Yes Questionnaire Thrive Questionnaire Date Thrive assessed: 06/23/22 JEROME-7 AMB Questionnaire JEROME-7 Date JEROME - 7 assessed: 06/23/22 Source: Developed by Drs. Wisam Hay, Julieta Sylvester, Rad Hsu and colleagues, with an educational niharika from [employer]. Review of Systems Const Denies headache(s) Eyes Denies loss of vision ENT Denies vertigo, Denies dizziness, Denies headache(s) and Denies sore throat Card Denies chest pain, Denies leg edema and Denies lightheadedness Resp Reports cough, Denies hemoptysis and Denies wheezing GI Denies abdominal pain, Denies melena, Denies constipation, Denies diarrhea and Denies vomiting Denies urinary frequency, Denies dysuria and Denies urinary urgency Musc Denies arthralgias, Denies joint swelling, Denies numbness and Denies tingling Neuro Denies Abnormal speech present, Denies behavioral changes, Denies vertigo, Denies dizziness, Denies headache(s), Denies loss of vision, Denies memory loss, Denies numbness and Denies tingling Psych Denies anxiety, Denies behavioral changes, Denies depression, Denies memory loss and Denies panic attacks Jesus/Lymph Denies easy bleeding and Denies easy bruising Aller/Immun Denies wheezing Physical exam (Primary Care) Vital Signs: Last Vital Signs Pulse 80 03/02/23 14:36 Resp 17 03/02/23 14:36 BP 120/84 03/02/23 14:36 BMI result Body Mass Index 30.8 BMI Assessment/Plan discussion: High Tobacco/Smoking Status: Tobacco use Status Tobacco use date assessed 06/23/22 03/02/23 14:33 Patient Tobacco Use Status Former Tobacco user 03/02/23 14:33 Tobacco use type 03/02/23 14:27 e-Cigarette/Vaping Use Never Used 03/02/23 14:33 Thrive Assessment: Date of Thrive Assessment Date Thrive assessed 06/23/22 03/02/23 14:33 Const General: healthy appearing, no acute distress, alert and awake Nutritional Appearance: well nourished Orientation/consciousness: oriented to person, oriented to place and oriented to time HENMT Ears: TM's normal bilaterally General nose exam: Normal nasal mucous membranes and turbinates present Eyes Conjunctivae: conjunctivae normal Sclerae: sclerae normal Pupils: Equal, round and reactive pupils present Neck Neck: Yes no lymphadenopathy and Yes no JVD Thyroid: Thyroid normal Carotids: no bruits Resp Effort & Inspection: normal respiratory effort and not tachypneic Auscultation: no crackles, no rales, no rhonchi and no wheezes Cardio Rate: regular rate Rhythm: regular rhythm Heart sounds: no murmurs and normal S1 and S2 GI Palpation (GI): Soft to palpation, nontender, no hepatomegaly and no splenomegaly Auscultation: normal bowel sounds Skin General skin exam: no rashes or lesions noted and dry skin Neuro General: oriented to person, oriented to place and oriented to time Cranial nerves: Yes Equal, round and reactive pupils present Speech: No Abnormal speech present Gait exam (Neuro): Normal gait present Motor exam (neuro): no tremor noted Extrem Right upper extremity: full ROM Left upper extremity: full ROM Right lower extremity: full ROM; no edema Left lower extremity: full ROM; no edema Psych Mental Status: mental status grossly normal Speech and movement: Normal speech and movement present Affect: normal affect Attitude: cooperative Thought process: Normal thought process present Office Procedures Flu Questionnaire Does the patient have a severe egg allergy?: No Does the patient have severe life threatening allergies?: No Does the patient have a fever or illness today?: No Has the patient ever had Guillain-[place] Syndrome?: No Has the patient ever had any past reaction to a flu shot?: No Immunizations flu vacc [id number] 6mos up(PF) 60 mcg(15 mcgx4)/0.5 mL IM syringe Performing Provider: Luis Panda PA-C Performing Location: [facility] Administered by: GRUPO Beck on 03/02/23 14:45 Dose Route Admin Location Dispensed Lot Number Expiration Date NDC Medical Advisor 0.5 mL IM Left Deltoid 0.5 mL [id number] 09/19/23 [id number] [employer] VIS Given Date VIS Provided VIS Publication Date 03/02/23 Single Vaccine 20 Eligibility Eligibility Date Funding Source Not [facility] Eligible 03/02/23 Private Assessment and Plan Assessment & Plan (1) HTN (hypertension): Comment: stable Code(s): I10 - Essential (primary) hypertension Qualifiers: Hypertension type: essential hypertension Qualified Code(s): I10 - Essential (primary) hypertension Plan: Patient's blood pressure stable today in office. Not on any medication and blood pressure has been controlled with lifestyle modifications. Goal blood pressure remain below 140/90 (2) Borderline high cholesterol: Code(s): E78.9 - Disorder of lipoprotein metabolism, unspecified Plan: Patient's most recent lipid panel showing borderline high total cholesterol. She will continue working on lifestyle modifications and dietary modifications to reduce her cholesterol. (3) MDD (major depressive disorder), recurrent episode, moderate: Code(s): F33.1 - Major depressive disorder, recurrent, moderate Plan: Patient continues to follow a mental health therapist and a psychiatrist who manages her mental health medications. She reports she is stable from a mental health point of view on her medications. (4) Asthma: Code(s): J45.909 - Unspecified asthma, uncomplicated Qualifiers: Asthma complication type: uncomplicated Asthma persistence: intermittent Asthma severity: mild Qualified Code(s): J45.20 - Mild intermittent asthma, uncomplicated Plan: Now followed by pulmonology. She did have allergy testing which showed high levels of allergen. She does have rugs at home and has a dog.. Has been started on Xolair injections which have helped her pulmonary symptoms. (5) Obese: Code(s): E66.9 - Obesity, unspecified Qualifiers: Body mass index: BMI 32.0-32.9 Obesity classification: adult class 1 (BMI 30 - 34.9) Obesity type: due to excess calories Serious obesity comorbidity presence: without serious comorbidity Qualified Code(s): E66.09 - Other obesity due to excess calories; Z68.32 - Body mass index [BMI] 32.0-32.9, adult Plan: Has lost some weight since last office visit . Patient does understand BMI is over 30 will work on being more physically active and adapting to better eating habits to reduce her weight Orders: Orders Influenza [id number] Immunization 03/02/23 Z23 - Encounter for immunization Medications: Changed From albuterol sulfate 90 mcg/actuation (Ventolin HFA) 1 puff inhalation QID 8.5 grams 6RF 30 days J45.20 - Mild intermittent asthma, uncomplicated To albuterol sulfate 90 mcg/actuation (Ventolin HFA) 1 puff inhalation QID 3 inhalers 1RF 90 days J45.20 - Mild intermittent asthma, uncomplicated From cetirizine (Zyrtec) 10 mg PO DAILY PRN 30 caps 0RF allergy symptoms R09.82 - Postnasal drip To cetirizine (Zyrtec) 10 mg PO DAILY 90 caps 1RF allergy symptoms 90 days R09.82 - Postnasal drip From cholecalciferol (vitamin D3) 50 mcg PO DAILY 90 caps 3RF R79.89 - Other specified abnormal findings of blood chemistry To cholecalciferol (vitamin D3) 50 mcg PO DAILY 90 caps 1RF 90 days R79.89 - Other specified abnormal findings of blood chemistry From valacyclovir (Valtrex) 500 mg PO DAILY 30 tabs 3RF 30 days R22.0 - Localized swelling, mass and lump, head To valacyclovir (Valtrex) 500 mg PO DAILY 90 tabs 1RF 90 days R22.0 - Localized swelling, mass and lump, head Refilled albuterol sulfate 2.5 mg (3 mL) inhalation TID PRN 180 mL 3RF shortness of breath or wheezing 30 days J45.20 - Mild intermittent asthma, uncomplicated montelukast 10 mg PO DAILY 90 tabs 1RF 90 days J45.20 - Mild intermittent asthma, uncomplicated sumatriptan succinate take 1 tab at onset of headache; if no relief may repeat 1 tab after at least 2 hrs; max = 4 tabs/24 hr PO 9 tabs 0RF G43.009 - Migraine without aura, not intractable, without status migrainosus Discontinued cyclobenzaprine Discontinued Reason: Doctor's Order 10 mg PO TID PRN 10 tabs 0RF muscle spasm Coding Level of Care Code Est Pt Level 4 (30545) Diagnoses Essential hypertension I10 Hypertension type: essential hypertension Borderline high cholesterol E78.9 MDD (major depressive disorder), recurrent episode, moderate F33.1 Mild intermittent asthma without complication J45.20 Asthma complication type: uncomplicated Asthma persistence: intermittent Asthma severity: mild Class 1 obesity due to excess calories without serious comorbidity with body mass index (BMI) of 32.0 to 32.9 in adult E66.09; Z68.32 Body mass index: BMI 32.0-32.9 Obesity classification: adult class 1 (BMI 30 - 34.9) Obesity type: due to excess calories Serious obesity comorbidity presence: without serious comorbidity
[2023-03-02 14:36] VITALS: BP 120/84; PULSE 80; RESP 17; BMI 30.8
== END 2023-03-02 16:26 | disposition home or self-care (01) ==
PROVIDERS: PCP Physician Assistant; Visit Provider Physician Assistant
DX: Z23 Encounter for immunization (principal)
CPT/HCPCS: 90471; 90686; 99214

== ENCOUNTER → 2023-03-04 12:48 | Outpatient (REF) | payer OTHER, SELFPAY ==
--- NOTE | 2023-03-04 12:50 | HM_ITS ---
* Total monitoring time 6 days. * Underlying rhythm is sinus. Average ventricular rate 76/Min. Range 40 to 159/min. About 16% of the time, rate >100/min. * Rare ventricular ectopy. * No significant pauses or AV blocks. * Patient marker used once in association with sinus tachycardia. * No diary events. MTDD
== END ==
LOC: HO.CARD 12:48
PROVIDERS: PCP Physician Assistant; Visit Provider Internal Medicine Cardiovascular Disease
DX: R42 Dizziness and giddiness (principal)
CPT/HCPCS: 93242

== ENCOUNTER → 2023-03-04 12:50 | Outpatient (BNV) | payer OTHER, SELFPAY | PROVIDERS: PCP Physician Assistant; Visit Provider Internal Medicine | DX: R00.0 Tachycardia, unspecified (principal) | CPT/HCPCS: 93244 ==

== ENCOUNTER 2023-03-04 13:04 | Outpatient (REF) | payer OTHER, SELFPAY | END 2023-03-04 13:05 | disposition home or self-care (01) | LOC: HO.MDS 13:04 | PROVIDERS: Visit Provider Internal Medicine Pulmonary Disease | DX: J45.50 Severe persistent asthma, uncomplicated (principal) | CPT/HCPCS: 96372; J2357 ==

== ENCOUNTER 2023-03-18 12:43 | Outpatient (REF) | payer OTHER, SELFPAY | END 2023-03-18 12:44 | disposition home or self-care (01) | LOC: HO.MDS 12:43 | PROVIDERS: Visit Provider Internal Medicine Pulmonary Disease | DX: J45.50 Severe persistent asthma, uncomplicated (principal) | CPT/HCPCS: 96372; J2357 ==

== ENCOUNTER 2023-03-23 11:55 | Outpatient (AMB) | payer OTHER, SELFPAY ==
--- NOTE | 2023-03-23 12:07 | MHC.OFFVIS ---
Intake Vital Signs 03/23/23 12:08 Height 5 ft Weight 157 lb BMI 30.7 BP 108/67 Blood Pressure Location Lt brachial Position Sitting Pulse 70 Intake Visit Reasons: 1 month followup Intake Note: Patient 1 month follow up. Patient cc: nauseas, constipation, acid reflex, and abdominal pain. 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 Accompanied by: Self / Same As Patient Allergies Fish Containing Products Allergy (Severe, Verified 03/23/23 12:06) throat closes nut - unspecified Allergy (Severe, Verified 03/23/23 12:06) Anaphylaxis peanut [Peanut] Allergy (Severe, Verified 03/23/23 12:06) ANAPHYLAXIS shellfish derived Allergy (Severe, Verified 03/23/23 12:06) Anaphylaxis kiwi Allergy (Intermediate, Verified 03/23/23 12:06) scratchy throat, swollen tongue peach Allergy (Intermediate, Verified 03/23/23 12:06) scratchy throat, swollen tongue HPI 1 month followup HPI Details LAST VISIT Constipation GERD (gastroesophageal reflux disease) Dysphagia Plan Patient no longer has trouble swallowing. Esophageal dilation performed while having and does come pick procedure. Patient reports that her symptoms are more controlled now. Continue Nexium and sucralfate. Continue Dulcolax and MiraLax to help her move her bowels. Patient was encouraged to increase fluid intake and activity to promote bowel motility. I will see patient in 3 weeks, sooner on as needed basis. Patient is agreeable to this plan and verbalizes understanding of instructions. She was given the opportunity to ask questions and all questions answered. TODAY'S VISIT: Patient is here for follow-up and for refills as she will be moving to [place] with her boyfriend next week. Patient reports occasional dyspepsia and nausea without dysphagia or odynophagia. Patient is taking Nexium and sucralfate and states that it is helping. Patient states that Motegrity was not helpful and she was not taking it. Dulcolax and MiraLax are not really working and she continues to be constipated. Patient reports that she has been stressed out packing and trying to finish everything before she leaves. Patient denies any melena, hematochezia, unintentional weight loss or ribbon like stools. [facility] Medical History Oral herpes simplex infection Hx of sigmoidoscopy Anxiety Migraines Multiple food allergies Migraine Conjunctivitis Otitis media Diverticulosis Hx of chest pain Asthma PVD (peripheral vascular disease) HTN (hypertension) Equivocal stress test Surgical History History of esophagogastroduodenoscopy (EGD) H/O colonoscopy Hx of varicose vein ligation History of bladder surgery History of hysterectomy History of tubal ligation H/O splenectomy History of cholecystectomy Family History Father Alzheimers disease Mother Asthma attack Brother Hypertension Hypercholesterolemia Depression Sister Heart disease Diabetes Daughter COPD (chronic obstructive pulmonary disease) Sister Uterine cancer Brother Throat cancer Other Mental health disorder Social History Household Members: Children and Other Housing: House Are you a primary career resource technician to a significant other at home: No Do you presently have visiting nurse or other home services: No Alcohol intake: never Patient Tobacco Use Status: Former Tobacco user Quit Date: 2002 Cigarettes Per Day: 2 e-Cigarette/Vaping Use: Never Used Second Hand Smoke Exposure: No service: No Current occupational status: disabled Cognitive needs: No Hearing needs: No Vision needs: Yes Review of Systems Const Denies weight gain and Denies weight loss ENT Reports no additional complaints, Denies dysphagia and Denies odynophagia Card Reports no additional complaints Resp Reports no additional complaints GI Denies abdominal pain, Denies belching, Denies melena, Denies bloating, Denies change in bowel habits, Denies dysphagia, Denies excessive flatus, Denies dyspepsia, Denies heartburn, Denies diarrhea, Denies loose stools, Denies nausea, Denies odynophagia and Denies vomiting Musc Reports no additional complaints Neuro Reports no additional complaints Psych Reports no additional complaints Endo Reports no additional complaints Physical Exam Vital Signs: Last Vital Signs Pulse 70 03/23/23 12:08 BP 108/67 03/23/23 12:08 BMI result Body Mass Index 30.7 Const General: healthy appearing, no acute distress and well developed Nutritional Appearance: well nourished Orientation/consciousness: patient oriented x3 HEENT Head: Yes normal to inspection, Yes normocephalic and Yes atraumatic Face and sinus: Yes normal facial exam Mouth: Normal oral and palatal mucosa present Throat: Yes posterior oropharynx normal, Yes tonsils normal and Yes uvula midline Eyes General: appearance normal, both eyes and all related structures Neck Neck: Yes normal visual inspection, Yes full ROM and Yes trachea midline Thyroid: Thyroid normal Resp Effort & Inspection: normal respiratory effort, able to speak in complete sentences, no tracheal deviation and symmetric chest movement Auscultation: clear to auscultation bilaterally Cardio Rate: regular rate GI Inspection: Yes normal to inspection and No distended Palpation (GI): Soft to palpation, not firm, nontender and No hepatosplenomegaly present Auscultation: normal bowel sounds General: Yes no CVA tenderness Back/Spine/Pelvis Back: no CVA tenderness Skin General skin exam: elasticity normal, turgor normal and dry skin Neuro General: patient oriented x3 Psych Appearance: grossly normal Mental Status: mental status grossly normal Affect: normal affect Assessment & Plan Assessment & Plan (1) Constipation: Code(s): K59.00 - Constipation, unspecified Qualifiers: Constipation type: chronic idiopathic constipation Qualified Code(s): K59.04 - Chronic idiopathic constipation (2) GERD (gastroesophageal reflux disease): Code(s): K21.9 - Gastro-esophageal reflux disease without esophagitis Qualifiers: Esophagitis presence: with esophagitis Esophagitis bleeding: without hemorrhage Qualified Code(s): K21.00 - Gastro-esophageal reflux disease with esophagitis, without bleeding (3) IBS (irritable bowel syndrome): Code(s): K58.9 - Irritable bowel syndrome without diarrhea Qualifiers: Irritable bowel syndrome type: with constipation Qualified Code(s): K58.1 - Irritable bowel syndrome with constipation (4) Dyspepsia: Code(s): R10.13 - Epigastric pain Plan Continue Nexium and sucralfate. Discussed with patient avoiding dietary triggers as well. Patient is going under lot of stress right now this could be also contributing to some of her symptoms. Patient can take Linzess again. She did okay before. Trulance was not working. We will have her take Dulcolax tablets at nighttime to help her empty her stools better. Patient was encouraged to increase fluid intake and activity to promote better bowel motility. She will follow-up with us on as-needed basis. Patient will look for providers in [facility] when she gets there. She is agreeable to this plan and verbalizes understanding of instructions. She was given the opportunity to ask questions and all questions answered. Thank you for allowing me to participate in her care Medications: New linaclotide (Linzess) 145 mcg PO DAILY 90 caps 3RF K59.04 - Chronic idiopathic constipation Refilled hydrocortisone 2.5% (Anusol-HC) 1 appl PA QID PRN 30 grams 2RF hemorrhoids K64.9 - Unspecified hemorrhoids Discontinued prucalopride (Motegrity) Discontinued Reason: Doctor's Order 2 mg PO DAILY 90 tabs 2RF K59.04 - Chronic idiopathic constipation Coding Level of Care Code Est Pt Level 3 (48653) Diagnoses Chronic idiopathic constipation K59.04 Constipation type: chronic idiopathic constipation Gastroesophageal reflux disease with esophagitis without hemorrhage K21.00 Esophagitis presence: with esophagitis Esophagitis bleeding: without hemorrhage Irritable bowel syndrome with constipation K58.1 Irritable bowel syndrome type: with constipation Dyspepsia R10.13 Time Spent (min) 30 Comment 20 minutes spent with patient and additional 10 minutes spent reviewing her records
[2023-03-23 12:08] VITALS: BP 108/67; PULSE 70; BMI 30.7
== END 2023-03-23 14:07 | disposition home or self-care (01) ==
PROVIDERS: PCP Physician Assistant; Visit Provider Nurse Practitioner Family
DX: K59.04 Chronic idiopathic constipation (principal); K21.00 Gastro-esophageal reflux disease with esophagitis, without bleeding; K58.1 Irritable bowel syndrome with constipation; R10.13 Epigastric pain
CPT/HCPCS: 99213

== ENCOUNTER → 2023-03-23 11:55 | Outpatient (BNVA) | payer OTHER, SELFPAY | PROVIDERS: PCP Physician Assistant; Visit Provider Nurse Practitioner Family | DX: K59.04 Chronic idiopathic constipation (principal); K21.00 Gastro-esophageal reflux disease with esophagitis, without bleeding; K58.1 Irritable bowel syndrome with constipation; R10.13 Epigastric pain; Z79.899 Other long term (current) drug therapy | CPT/HCPCS: 99212 ==

== ENCOUNTER 2023-04-01 08:28 | Outpatient (REF) | payer OTHER, SELFPAY | END 2023-04-01 08:29 | disposition home or self-care (01) | LOC: HO.MDS 08:28 | PROVIDERS: Visit Provider Internal Medicine Pulmonary Disease | DX: J45.50 Severe persistent asthma, uncomplicated (principal) | CPT/HCPCS: 96372; J2357 ==